=== PATIENT | male | born 1945 | race Caucasian/White ===

== ENCOUNTER 2016-10-12 22:29 | Inpatient (IN) | payer OTHER ==
[~2016-10-12] VITALS: Ht 180.3 cm; Wt 124.7 kg
--- NOTE | 2016-10-13 01:00 | RADIOLOGY REPORT ---
EXAMINATION: XR CHEST CLINICAL INFORMATION: Pneumonia. Central venous catheter COMPARISON: None TECHNIQUE: Single AP view of the chest was obtained. FINDINGS: Right-sided central venous catheter terminates near the cavoatrial junction. The lungs are well expanded. There is no focal consolidation, edema, or effusion. No pneumothorax. The cardiomediastinal silhouette is within normal limits. No acute osseous abnormality. IMPRESSION: No acute pulmonary findings.
[2016-10-13 01:12] LABS: ABSOLUTE EOSINOPHIL COUNT 0.1 /CUMM (0.0-0.7); ABSOLUTE MONOCYTE COUNT 0.6 /CUMM (0.10-0.60)
[2016-10-13 01:16] LABS: ABSOLUTE BASOPHIL COUNT 0.1 /CUMM (0.0-0.2); ABSOLUTE GRANULOCYTE CT 7.5 /CUMM (1.4-6.5); ABSOLUTE LYMPH COUNT 0.7 /CUMM (1.2-3.4); BASOPHIL % 1.6 % (0.0-2.0); GRANULOCYTE % 82.9 % (42.2-75.2); HEMATOCRIT 34.9 % (42-52); MEAN CORPUSCULAR HGB 28.3 PG (27.0-31.0); MEAN CORPUSCULAR HGB CONC 33.8 G/DL (33.0-37.0); MEAN CORPUSCULAR VOLUME 83.5 FL (80.0-94.0); MEAN PLATELET VOLUME 8.1 FL (7.4-10.4); PLATELET COUNT 230 /CUMM (130-400); RBC DISTRIBUTION WIDTH 15.3 % (11.5-14.5); RED BLOOD CELL CT 4.18 /CUMM (4.70-6.10)
--- NOTE | 2016-10-13 01:29 | ED GENERAL ADULT ---
History of Present Illness General Chief Complaint: General Adult Stated Complaint: SIB MD DUNCAN ?INFECTION Source: patient, Epic Exam Limitations: no limitations Vital Signs & Intake/Output Vital Signs & Intake/Output Vital Signs Date Time Temp Pulse Resp B/P B/P Pulse O2 O2 Flow FiO2 Mean Ox Delivery Rate 10/13 0221 98.7 82 16 170/102 98 Room Air 10/12 2234 99.4 86 20 194/101 94 Room Air ED Intake and Output 10/13 0000 10/12 1200 Intake Total Output Total Balance Patient 275 lb Weight Weight Reported by Patient Measurement Method Allergies Coded Allergies: No Known Allergies (10/12/16) Reconcile Medications Alendronate Sodium (Fosamax) 70 MG TABLET 1 TAB PO QW BONES (Reported) in the morning, at least 30 minutes before the first food, beverage, or medication of the day Every Sunday Dutasteride (Avodart) 0.5 MG CAPSULE 1 CAP PO DAILY PROSTATE (Reported) Lisinopril 10 MG TABLET 1 TAB PO DAILY HTN (Reported) Simvastatin (Simvastatin*) 10 MG TABLET 1 TAB PO QPM CHOLESTEROL (Reported) Triage Note: TRIAGE: PT SENT TO ER BY DR SIMS (ONCOLOGIST OUT OF [facility] IN [place]) FOR ADMISSION FOR +BLOOD CULTURES. CURRENTLY BEING TREATED FOR STAGE IV PROSTATE CANCER. HAD BLOOD CULTURES DRAWN THIS MORNING R/T PROSTATE CANCER DRUG REQUIRING IMMUNOTHERAPY. PT HAS OTHERWISE BEEN FEELING OK. HAS PREHOSPITAL PORT TO R CHEST WALL, HAS HAD X 3 WEEKS. Triage Nurses Notes Reviewed? yes Onset: Just prior to arrival Duration: minute(s):, constant, continues in ED Timing: recent history Severity: mild No Modifying Factors: none HPI: September 28 patient had central venous catheter placed for plasmapheresis and immunotherapy recurrent metastatic prostate cancer. Blood cultures were obtained because of suspicion for bacteremia. Culture from his central venous catheter and preliminary results of gram-positive cocci. He denies fever chills nausea vomiting diarrhea abdominal pain chest pain shortness of breath headache dysuria rash bleeding. Past History Travel History Traveled to [place] past 21 day No Medical History Any Pertinent Medical History? 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 No Review of Systems Review of Systems Constitutional: Reports: no symptoms. EENTM: Reports: no symptoms. Respiratory: Reports: no symptoms. Cardiovascular: Reports: no symptoms. GI: Reports: no symptoms. Genitourinary: Reports: no symptoms. Musculoskeletal: Reports: no symptoms. Skin: Reports: no symptoms. Neurological/Psychological: Reports: no symptoms. Hematologic/Endocrine: Reports: no symptoms. Immunologic/Allergic: Reports: no symptoms. All Other Systems: Reviewed and Negative Physical Exam Physical Exam General Appearance: well developed/nourished, alert, awake, anxious, comfortable Head: atraumatic, normal appearance Eyes: Bilateral: normal appearance, PERRL, EOMI. Ears, Nose, Throat: normal pharynx, normal ENT inspection, hearing grossly normal Neck: normal inspection, supple, full range of motion, no midline tenderness Respiratory: normal breath sounds, chest non-tender, no respiratory distress, quiet respiration, lungs clear Cardiovascular: regular rate/rhythm, normal peripheral pulses, norml femoral pulses equa Peripheral Pulses: 4+ carotid (R), 4+ carotid (L) Gastrointestinal: normal bowel sounds, soft, non-tender, no organomegaly Back: normal inspection, normal range of motion Extremities: normal inspection, normal capillary refill, normal range of motion, no edema Neurologic/Psych: no motor/sensory deficits, awake, alert, oriented x 3, normal gait, normal mood/affect, transmitter tester II-XII nml as tested Reflexes: 2+: bicep (R), bicep (L). Skin: intact, normal color, rash Lymphatic: no anterior cervical giovanni Core Measures ACS in differential dx? No CVA/TIA Diagnosis: No Severe Sepsis Present: No Septic Shock Present: No Progress Differential Diagnoses I considered the following diagnoses in my evaluation of the patient: Bacteremia Plan of Care: Orders Procedure Date/time Status CBC WITHOUT DIFFERENTIAL 10/14 599 Active BASIC ELECTROLYTES PLUS BUN&CR 10/14 599 Active Heart Healthy Diet 10/13 B Active BLOOD CULTURE 10/13 221 Active Intake & Output 10/14 219 Active Pathway - chart 10/13 205 Active LACTIC ACID 10/13 202 Active Pathway - chart 06/09 0200 Active House Staff 06/09 0200 Active EKG 10/13 0130 Active Patient Data 10/13 0054 Active TROPONIN LEVEL 10/13 0045 Complete CULTURE,URINE 10/13 0035 Active OXYGEN SETUP (GEN) 10/13 0002 Active Saline Lock 10/13 0002 Active Admit to inpatient 10/13 0002 Active Vital Signs 10/13 1 Active Activity/Ambulation 10/13 1 Active URINALYSIS 10/13 1 Complete Code Status 10/13 1 Active Lab Add-on Test 10/13 UNK Active VTE Mechanical Prophylaxis 10/13 UNK Active BLOOD CULTURE 10/12 2302 Active LACTIC ACID 10/12 2302 Complete COMPREHENSIVE METABOLIC PANEL 10/12 2302 Complete CBC WITHOUT DIFFERENTIAL 10/12 2302 Complete Current Medications Sig/Heath Start time Last Medication Dose Stop Time Status Admin Vancomycin HCl 1,000 MG ONCE ONE 10/13 2345 AC 10/13 Sodium Chloride 250 ML 10/14 004 0146 (Normal Saline 0.9%) Atorvastatin Calcium 10 MG 1700 10/13 1700 UNVr (Lipitor) Enoxaparin Sodium 40 MG DAILY 10/13 1000 UNVr (Lovenox) Finasteride 5 MG DAILY 10/13 1000 UNVr (Proscar) Lisinopril 10 MG DAILY 10/13 1000 UNVr (Prinivil) Acetaminophen 650 MG Q6P PRN 10/13 021 UNVr (Tylenol) Acetaminophen 1,000 MG Q6P PRN 10/13 021 UNVr (Ofirmev) Alendronate Sodium 70 MG .[QW] 10/13 214 UNVr (Fosamax) Hydromorphone HCl 0.5 MG Q6-PRN PRN 10/13 214 UNVr (Dilaudid) Laboratory Tests 10/13/16 0045: Anion Gap 9, Estimated GFR > 60, BUN/Creatinine Ratio 18.8, Glucose 107 H, Lactic Acid 0.8, Calcium 8.7, Total Bilirubin 0.8, AST 32, ALT 53, Alkaline Phosphatase 70, Troponin I 0.02, Total Protein 6.9, Albumin 3.7, Globulin 3.2, Albumin/Globulin Ratio 1.2, CBC w Diff NO MAN DIFF REQ, RBC 4.18 L, MCV 83.5, MCH 28.3, RDW 15.3 H, MPV 8.1, Gran % 82.9 H, Lymphocytes % 8.2 L, Monocytes % 6.3, Eosinophils % 1.0, Basophils % 1.6, Absolute Granulocytes 7.5 H, Absolute Lymphocytes 0.7 L, Absolute Monocytes 0.6, Absolute Eosinophils 0.1, Absolute Basophils 0.1, PUBS MCHC 33.8 10/13/16 0035: Urine Color YEL, Urine Clarity CLEAR, Urine pH 6.5, Ur Specific [place] 1.020, Urine Protein 30 H, Urine Ketones NEG, Urine Nitrite NEG, Urine Bilirubin NEG, Urine Urobilinogen 0.2, Ur Leukocyte Esterase NEG, Ur Microscopic SEDIMENT EXAMINED, Urine WBC RARE, Urine Hemoglobin TRACE-INTACT H, Urine Glucose NEG Microbiology 10/13 0222 BLOOD: Blood Culture - ORD 10/13 013 BLOOD: Blood Culture - RECD 10/13 34 URINE ROUT: Urine Culture - RECD 10/12 2302 BLOOD: Blood Culture - CAN Cancelled: Quantity not sufficient for both blood culture bottles. Initial ED EKG: none Departure Departure Disposition: STILL A PATIENT Condition: Stable Clinical Impression Primary Impression: Bacteremia due to Gram-positive bacteria Referrals: CARI BARRAZA MD (PCP/Family) Departure Forms: Customer Survey General Discharge Information Admission Note Spoke With: CARROLL ARGUETA,BRENDAN Documentation of Exam: Documentation of any treatments & extenuating circumstances including Concerns Regarding Discharge (functional status, medication knowledge or non-compliance, living conditions, etc.) that warrant an admission rather than observation: IV antibiotics follow cultures oncology evaluation central line placement Critical Care Note Critical Care Note Critical Care Time: non-applicable
[2016-10-13] MEDS ORDERED: LISINOPRIL10 M1 PO (02:01)
[2016-10-13] MEDS ORDERED: AVODART0.5 M1 PO (02:01)
[2016-10-13] MEDS ORDERED: SIMVASTATIN10 M1 PO (02:02)
[2016-10-13] MEDS ORDERED: FOSAMAX70 M1 PO (02:03)
--- NOTE | 2016-10-13 02:16 | History & Physical ---
RAJ ARGUETA,[facility] [place] 10/13/16 0208: General Information and HPI MD Statement: I have seen and personally examined GURPREET MACIAS and documented this H&P. The patient is a 71 year old M who presented with a patient stated chief complaint of positive blood cultures. Source of Information: patient, old records Exam Limitations: no limitations History of Present Illness: Mr. Macias is a 71 y/o morbidly obese M with PMHx of stage IV adenocarcinoma of the prostate s/p recent [facility] hemodialysis catheter placement in anticipation for immunotherapy, HTN and HLD who is sent in for further evaluation of positive blood cultures. Patient was diagnosed with prostate cancer in 2007 and since then has tried multiple therapy regimens including cyberknife, leuprolide, dutasteride, enzalutamide and most recently a combination of Zytiga and prednisone. Patient has been following up with oncologist Dr. Justyn Ponce at the [facility] in [place] and according to his clinic notes, he has recently been experiencing advancing disease with increasing PSA despite multiple treatment modalities that were tried. He has extensive lymph node involvement throughout his chest, abdomen and pelvis. There are no other metastases, however, including osteoblastic bone disease. Most recently, patient was switched over from Zytigo and prednisone to Provenge, which is an immunotherapy treatment for advanced prostate cancer. He is also on androgen deprivation therapy with leuprolide injections and dutasteride. Provenge is administered in 3 intravenous infusions about 2 weeks apart, with each infusion preceded 3 days earlier by leukapheresis procedure, which involves the collection of a blood sample from which leukocytes are subsequently . These cells are then exposed to antigens found in prostate cancers to provoke an immune response and subsequently infused back into the patient's bloodstream to target cancer cells. On 09/25, a hemodialysis catheter was placed at [facility] at [facility] in anticipation for Provenge therapy. 6 days prior to current presentation (10/06), patient underwent leukapheresis at [facility] and was supposed get the Provenge infusion three days later as part of the protocol. However, his oncologist was informed that his blood samples were contaminated, thus the scheduled infusion was canceled. Repeat blood cultures were drawn at [facility], with both anaerobic and aerobic cultures from the [facility] dialysis catheter growing gram positive cocci, while the peripheral cultures remained negative. Currently patient reports feeling well and denies any symptoms including fever, chills, cough, shortness of breath, nausea, vomiting, abdominal pain or urinary symptoms. He also denies swelling, redness or tenderness at the [facility] permacath site. Allergies/Medications Allergies: Coded Allergies: No Known Allergies (10/12/16) Home Med list Alendronate Sodium (Fosamax) 70 MG TABLET 1 TAB PO QW BONES (Reported) in the morning, at least 30 minutes before the first food, beverage, or medication of the day Every Sunday Dutasteride (Avodart) 0.5 MG CAPSULE 1 CAP PO DAILY PROSTATE (Reported) Lisinopril 10 MG TABLET 1 TAB PO DAILY HTN (Reported) Simvastatin (Simvastatin*) 10 MG TABLET 1 TAB PO QPM CHOLESTEROL (Reported) Past History Travel History [facility] past [facility] day No Medical History Neurological: NONE EENT: NONE Cardiovascular: hypertension, hyperlipidemia Respiratory: obstructive sleep apnea (on CPAP) Gastrointestinal: NONE Hepatic: NONE Renal: NONE Musculoskeletal: osteopenia Psychiatric: NONE Endocrine: obesity Blood Disorders: NONE Cancer(s): stage IV adenocarcinoma of the prostate PECAN PICKER/Reproductive: NONE Surgical History Surgical History: right hemodialysis catheter placement Past Family/Social History Family History Relations & Conditions if any FATHER, , Age 60+. No family history of: FH: diabetes mellitus; FH: HTN (hypertension) Psychosocial History Where do you live? Home Primary Language: Icelandic Smoking Status: Never Smoked ETOH Use: occasional use Illicit Drug Use: denies illicit drug use Functional Ability ADLs Independent: dressing, eating, toileting, bathing. Ambulation: independent IADLs Independent: shopping, housework, finances, food prep, telephone, transportation , medication admin. 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 Denies: chills, fever. EENTM: Reports: no symptoms. Cardiovascular: Reports: no symptoms. Respiratory: Reports: no symptoms. Denies: cough, short of breath. GI: Reports: no symptoms. Denies: nausea, vomiting. Genitourinary: Reports: no symptoms. Denies: dysuria, frequency. Musculoskeletal: Reports: no symptoms. Skin: Reports: no symptoms. Neurological/Psychological: Reports: no symptoms. Hematologic/Endocrine: Reports: no symptoms. Immunologic/Allergic: Reports: no symptoms. All Other Systems: Reviewed and Negative Exam & Diagnostic Data Last 24 Hrs of Vital Signs/I&O Vital Signs Date Time Temp Pulse Resp B/P B/P Pulse O2 O2 Flow FiO2 Mean Ox Delivery Rate 10/12 2234 99.4 86 20 194/101 94 Room Air Intake & Output 10/13 0800 10/13 0000 10/12 1600 Intake Total Output Total Balance Patient 124.738 kg Weight Weight Reported by Patient Measurement Method Physical Exam General Appearance Alert, Oriented X3, No Acute Distress, Obese Skin No Rashes, RIJ HD Catheter Site without Erythema, Swelling or Tenderness HEENT Atraumatic, Mucous Membr. moist/pink Neck Supple Cardiovascular Regular Rate, Normal S1, Normal S2, No Murmurs, Gallops, Rubs Lungs Clear to Auscultation Abdomen Soft, No Tenderness, Positive Bowel Sounds Extremities 1+ Pitting Edema on Bilateral Lower Extremities Last 24 Hrs of Labs/Gabe: Laboratory Tests 10/13/16 0045: Anion Gap 9, Estimated GFR > 60, BUN/Creatinine Ratio 18.8, Glucose 107 H, Lactic Acid 0.8, Calcium 8.7, Total Bilirubin 0.8, AST 32, ALT 53, Alkaline Phosphatase 70, Troponin I 0.02, Total Protein 6.9, Albumin 3.7, Globulin 3.2, Albumin/Globulin Ratio 1.2, CBC w Diff NO MAN DIFF REQ, RBC 4.18 L, MCV 83.5, MCH 28.3, RDW 15.3 H, MPV 8.1, Gran % 82.9 H, Lymphocytes % 8.2 L, Monocytes % 6.3, Eosinophils % 1.0, Basophils % 1.6, Absolute Granulocytes 7.5 H, Absolute Lymphocytes 0.7 L, Absolute Monocytes 0.6, Absolute Eosinophils 0.1, Absolute Basophils 0.1, PUBS MCHC 33.8 10/13/16 0035: Urine Color YEL, Urine Clarity CLEAR, Urine pH 6.5, Ur Specific Garber 1.020, Urine Protein 30 H, Urine Ketones NEG, Urine Nitrite NEG, Urine Bilirubin NEG, Urine Urobilinogen 0.2, Ur Leukocyte Esterase NEG, Ur Microscopic SEDIMENT EXAMINED, Urine WBC RARE, Urine Hemoglobin TRACE-INTACT H, Urine Glucose NEG Diagnostic Data EKG Results Normal sinus rhythm HR 74 Ventricular trigeminy LVH QTc 444 CXR Results No acute pulmonary findings. Assessment/Plan Assessment: Mr. Macias is a 71 y/o morbidly obese M with PMHx of stage IV adenocarcinoma of the prostate s/p recent RIJ hemodialysis catheter placement in anticipation for immunotherapy, HTN and HLD who is sent in for further evaluation of positive blood cultures. #Positive blood cultures: Presents with blood cultures, both aerobic and anaerobic, from the RIJ hemodialysis catheter growing gram positive cocci in clusters. This likely represents colonization as peripheral blood cultures were negative and patient has no fever, leukocytosis or other signs of infection including inflammation at the catheter site. However catheter site infection should also be considered. No other obvious source of infection. Patient is asymptomatic. CXR is clear and UA is unremarkable. * Admit to General Medicine. * Re-check peripheral blood cultures x2 and blood cultures from the RIJ catheter x2. * ID consult to be placed in the AM. Appreciate their recs. * Continue vancomycin 1 g IV daily started in the ED. * Hold off on ECHO to evaluate for infectious endocarditis pending above. #Stage IV adenocarcinoma of the prostate: Diagnosed in 2007. Currently with extensive lymph node involvement but no other mets including bone mets. Was recently switched from Zytigo and prednisone to immunotherapy with Provenge, which involves 3 infusions about 2 weeks apart, each preceded by leukapheresis. Also on androgen deprivation therapy with dutasteride 0.5 mg PO daily and leuprolide injections. Follows with Dr. Justyn Ponce at [facility]. * Oncology consult placed. Appreciate their recs. * Start finasteride 5 mg PO daily in place of dutasteride as the latter is not on formulary. #Ventricular ectopy: EKG on admission with ventricular trigeminy. Troponin negative. K 4 and Mg 1.9. * Replete to K >4 and Mg >2. 400 mg of oral magnesium administered. * Re-check EKG and troponin in the AM. #HTN: Hypertensive on initial presentation with BP of 194/101. Likely secondary to skipping his dose of lisinopril as well as anxiety. * Continue jxfyq-dk-ddmowfwph lisinopril 10 mg PO daily. Administer first dose as soon as possible. #Osteopenia: * Continue patlx-zy-pcktmvezz alendronate 70 mg PO once per week. #HLD: Takes simvastatin 10 mg PO daily. * Atorvastatin 10 mg PO daily. #TROY: * Continue oyugi-mt-ixiciicou nocturnal CPAP. Diet: Heart Healthy DVT PPx: Lovenox and ALPs Pain: Dilaudid 0.5 mg IV Q6H PRN for severe pain (scale 7-10) Tylenol 1 g IV Q6H PRN for moderate pain (scale 4-6) Tylenol 650 mg PO Q6H PRN for mild pain (scale 1-3) CODE: FULL As Ranked By This Provider Problem List: 1. Positive blood cultures 2. Adenocarcinoma of prostate, stage 4 3. HTN (hypertension) 4. HLD (hyperlipidemia) 5. TROY on CPAP 6. Osteopenia Core Measures/Miscellaneous Acute Coronary Syndrome ACS Diagnosis: No Cerebrovascular Accident CVA/TIA Diagnosis: No Congestive Heart Failure CHF Diagnosis: No VTE (View Protocol) VTE Risk Factors: Acute medical illness, Age > 40, Malignancy Myelo Disorder, Obesity [facility] prophylaxis d/t: No contraindications No VTE Pharm Prophylaxis d/t: No contraindications VTE Diagnosis: No VTE Type: NONE VTE Confirmed by (Test): NONE Sepsis (View Protocol) Severe Sepsis Present: No Septic Shock Septic Shock Present: No Miscellaneous Documentation Attending Case D[facility]ed With[facility] Primary Care Physician: CARI BARRAZA MD Patient sees these Specialists Oncologist Justyn Ponce MD Naturopathic physician Level of Patient Care: General Medicine BRIGTETE LITTLE 10/13/16 0233: Resident Review Statement Resident Statement: examined this patient, discussed with internal grinding machine operator, agreed with internal grinding machine operator Other Findings: This is a 71 years old gentleman with past medical history of hyperlipidemia hypertension obstructive sleep apnea who uses CPAP at night, prostate cancer stage IV currently about to start trying immunotherapy after multiple failure to previous treatment options. Prostate cancer was diagnosed since 2007. The patient was sent in by his oncologist Dr. Mcfarlane after growing gram-positive cocci in clusters in blood. Patient had port catheter placed on September 25 so that he can have leukapheresis in which case the collected white blood cell count be processed so that they facilitate packing the cancer cells using another medication called Provenge provided by a provider from [place]. Patient had leukapheresis last Sunday and on Sunday he is oncologist received a call from the Provenge providers that the white blood cell provided were contaminated with bacteria. He had a repeat blood culture and subsequently grew gram-positive cocci in clusters from the sample withdrawn from the port catheter but not from the peripheral site. Patient denies any fever or chills, loss of appetite, nausea, vomiting, increased urinary frequency, pain during micturition, abdominal pain, cough shortness of breath or extraordinary tenderness from the catheter site prior or during the identification of bacteria in the blood. Vital signs on arrival temperature 99.4, heart rate 86 respiration 20 blood pressure 194/101, saturating 94% on room were Physical examination: Seated comfortably on the bed, cooperative, oriented to time place and person very present HEENT: Short obese neck, nondistended vessels, no palpable nodes, the port catheter site has no erythema or discharge and no tenderness. Chest: Clear lungs bilaterally Heart: S1-S2 normal regular no murmurs Extremities: Mild pitting edema +1 bilaterally no skin break Labs: Normal white count 9800, mild anemia 11.8/34.9, negative lactic acid 0.8, negative UA Assessment and plan 71 years old gentleman with stage IV prostate cancer diagnosed since 2007 with multiple medication failure currently about to start immunotherapy that involves the use of leukapheresis. Sample collected from leukapheresis found to grow bacteria and repeated culture growing gram-positive cocci in clusters. Patient does not appear to be septic denies any constitutional symptoms and is generally frustrated that he cannot get his rescue therapy as planned. So far we cannot establish the source of infection offered to do SHARON to see if his prostate tenderness but the patient declined citing no symptoms. Problem list Bacteremia with gram-positive cocci in clusters Hypertension Stage IV prostate cancer Hyperlipidemia Obstructive sleep apnea Plan Admit to general medicine floor Patient started on vancomycin Panculture urine and blood Start home medication lisinopril for hypertension, simvastatin for hyperlipidemia Avodart for prostate Follow-up culture results and adjust antibiotic accordingly With subsequent growth of bacteria patient will benefit from echocardiogram to rule out vegetation Oncology consult a.m. ID consult a.m. Pain pathway Patient is full code CARROLL ARGUETA, [facility] 10/13/16 0550: Attending MD Review Statement Attending Statement Attending MD Statement: examined this patient, discuss w/resident/PA/ROBOTIC TOY INVENTOR, agreed w/resident/PA/ROBOTIC TOY INVENTOR Attending Assessment/Plan: 71 yo morbidly obese M has a h/o HTN, TROY on CPAP, castrate resistant, biochemically only recurrent prostate cancer with a plan to initiate immunotherapy (Provenge), underwent right IJ permacath placement on September 25, subsequently underwent pheresis on October 06. His Oncologist Dr. Ponce received a call from Proven provider at [place] that his WBC were contaminated with bacteria. Hence, Dr. Ponce advised patient o get blood cultures drawn this morning (October 12). Preliminary results of this blood culture drawn at [facility] were reported growing gram positive cocci in clusters in both aerobic and anaerobic bottles drawn from the right IJ cath, but cultures from peripheral line were negative. Dr. Ponce advised patient to get admitted, hence patient came to [place]. Patient is asymptomatic. Patient was diagnosed with prostate cancer in 2007, treated with cyberknife, then Xtandi, and then most recently zytiga/prednisone, but his PSA levels kept creeping up. He is currently on Lupron and avodart. Vitals stable except for hypertension. Examination unremarkable, right IJ site C /D/I. Labs: unremarkable, CXR neg. EKG: SR with ventricular trigeminy. 1. Gram positive bacteremia, likely line sepsis. GM admit, draw two sets of blood culture from the right IJ catheter and 2 sets from peripheral line. Initiate IV vancomycin. Obtain ID consult and Oncology consult. ?Eventual need for removal of the IJ catheter. Continue patient's home medications lisinopril, simvastatin, avodart. Replete electrolytes to keep K > 4.0, Mag > 2.0. Repeat EKG and troponin in AM. Patient is understanding, but frustrated with the whole situation. He keeps saying, "I cannot complain", but he is hoping that he could get this immunotherapy and live for a few more months. He does not have any family, but has friends. He is concerned about his 'dog' who is currently being cared for by his neighbour. DVT ppx. Full code.
[2016-10-13 03:00] VITALS: BP 168/90
--- NOTE | 2016-10-13 05:51 | Admission Certification ---
Admission Certification Certification Statement - As attending physician, I certify that at the time of - admission, based on clinical presentation, severity of - symptoms, need for further diagnostic testing and - therapeutic interventions, and risk of adverse outcomes - without in-hospital treatment, in my clinical assessment, - this patient requires an acute hospital stay for a minimum - of two nights or longer. I have also considered psychsocial - factors such as support system, advanced age, financial - issues, cognitive issues, and failed out-patient treatments, - past re-admission history, safety of patient, and lack of - compliance as applicable. Specific rationale supporting this admission is: Gram positive cocci bacteremia, likely line sepsis.
[2016-10-13 07:48] VITALS: BP 160/84
--- NOTE | 2016-10-13 08:51 | Cons- Oncology ---
General Information and HPI Consulting Request Date of Consult: 10/13/16 Requested By: CARROLL ARGUETA,BRENDAN Reason for Consult: metastatic prostate cancer, bacteremia Source of Information: patient, old records Exam Limitations: no limitations History of Present Illness: Mr. Macias is a 71-year-old male with metastatic prostate cancer status post Xtandi, Zytiga/Prednisone, and currently planning for Provenge therapy who presented to the ED with positive blood culture. His oncologist is Dr. Justyn Duncan in [place]. He is currently undergoing evaluation and preparation for Provenge therapy. Right IJ pheresis line was placed at [facility] on 09/25. His first sample of Provenge was contaminated and he was unable to get it. Due to concern on whether the line or sample was contaminated, he had blood cultures done on 10/12/[address] Duncan's office. Culture came back positive with GPC and Mr. Macias was sent to the ED for evaluation. Mr. Macias has been afebrile and feeling generally well. He is a little fatigue. He has no pain. He is eating and drinking well. He has no pain or redness at the line site. In the ED, he was noted to be afebrile and asymptomatic. Blood work demonstrated normocytic anemia. Repeat blood cultures were drawn. He was started on vancomycin. 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 He was diagnosed initially in 2007 with PSA of 12.3 and [place] 4+3=7. He was treated with radiation therapy at the time. He had biochemical recurrence without metastatic disease in 2008 and was started on leuprolide in 08/2009. He was started on Avodart with increasing PSA in 2012. Xtandi was started in 2012 when PSA increased to 15.5. PSA demonstrate significant improvement with negative metastatic disease workup. Salvage cryotherapy was deferred. PSA increased again after 2 years of Xtandi. He was switched to Zytiga/prednisone with PSA progression. His PSA continue to increased with evidence of retroperitoneal adenopathy. He was tentatively planned to start Provenge as above. He continues to be on leuprolide. Allergies/Medications Allergies: Coded Allergies: No Known Allergies (10/12/16) Home Med List: Alendronate Sodium (Fosamax) 70 MG TABLET 1 TAB PO QW BONES (Reported) in the morning, at least 30 minutes before the first food, beverage, or medication of the day Every Sunday Dutasteride (Avodart) 0.5 MG CAPSULE 1 CAP PO DAILY PROSTATE (Reported) Lisinopril 10 MG TABLET 1 TAB PO DAILY HTN (Reported) Simvastatin (Simvastatin*) 10 MG TABLET 1 TAB PO QPM CHOLESTEROL (Reported) Current Medications: Current Medications Sig/Heath Start time Last Medication Dose Route Stop Time Status Admin Acetaminophen 650 MG Q6P PRN 10/13 0215 AC PO Acetaminophen 1,000 MG Q6P PRN 10/13 0215 AC IV Alendronate Sodium 70 MG Th@0700 10/19 0700 AC PO Alendronate Sodium 70 MG ONCE A WEEK 10/13 1000 DC PO Atorvastatin Calcium 10 MG 1700 10/13 1700 AC PO Enoxaparin Sodium 40 MG DAILY 10/13 1000 AC SC Finasteride 5 MG DAILY 10/13 1000 AC PO Hydromorphone HCl 0.5 MG Q6-PRN PRN 10/13 0215 AC IV Lisinopril 10 MG DAILY 10/13 1000 CAN PO Lisinopril 10 MG DAILY 10/13 0230 AC 10/13 PO 0239 Magnesium Oxide 400 MG ONE ONE 10/13 0630 DC PO 10/13 0631 Ramelteon 8 MG ONCE ONE 10/13 0245 DC 10/13 PO 10/13 0246 0239 Vancomycin HCl 1,000 MG ONCE ONE 10/13 2345 AC 10/13 Sodium Chloride 250 ML IV 10/14 0044 0146 Vancomycin HCl 1,000 MG Q12H 10/13 1400 AC Sodium Chloride 250 ML IV Vancomycin HCl 1,000 MG Q12 10/13 1000 DC Sodium Chloride 250 ML IV Review of Systems Review of Systems Constitutional: Reports: no symptoms. Denies: chills, diaphoresis, fever, malaise, weakness. Cardiovascular: Denies: chest pain. Respiratory: Denies: short of breath. GI: Denies: abdominal pain, diarrhea. Genitourinary: Denies: dysuria. Musculoskeletal: Denies: back pain, joint pain. Skin: Denies: rash. Neurological/Psychological: Denies: anxiety. Hematologic/Endocrine: Denies: bruising, bleeding. Immunologic/Allergic: Denies: lymphadenopathy. All Other Systems: Reviewed and Negative Past History Travel History Traveled to [place] past 21 day No Medical History Blood Transfusion Hx: No Neurological: NONE EENT: NONE Cardiovascular: hypertension, hyperlipidemia Respiratory: obstructive sleep apnea (on CPAP) Gastrointestinal: NONE Hepatic: NONE Renal: NONE Musculoskeletal: osteopenia Psychiatric: anxiety Endocrine: obesity Blood Disorders: NONE Cancer(s): stage IV adenocarcinoma of the prostate VIDEO LIBRARY ASSISTANT/Reproductive: NONE Surgical History Surgical History: right hemodialysis catheter placement Family History Relations & Conditions If Any: FATHER, , Age 60+. Psychosocial History Where Do You Live? Home Services at Home: None Primary Language: Turkish Smoking Status: Never Smoked ETOH Use: occasional use Illicit Drug Use: denies illicit drug use Functional Ability ADLs Independent: dressing, eating, toileting, bathing. Ambulation: independent IADLs Independent: shopping, housework, finances, food prep, telephone, transportation , medication admin. Employment History Employment: Employed Profession/Employer: [employer] Exam & Diagnostic Data Vital Signs and I&O Vital Signs Date Time Temp Pulse Resp B/P B/P Pulse O2 O2 Flow FiO2 Mean Ox Delivery Rate 10/14 747 98.3 70 22 160/84 99 Room Air 10/13 0307 96 Room Air 10/13 0300 98.4 67 20 168/90 95 Room Air 10/13 0239 178/102 10/13 0221 98.7 82 16 170/102 98 Room Air 10/12 2234 99.4 86 20 194/101 94 Room Air Intake & Output 10/13 1600 10/13 0800 10/13 0000 Intake Total 0 Output Total Balance 0 Intake, Oral 0 Patient 124.738 kg 124.738 kg Weight Weight Reported by Patient Reported by Patient Measurement Method Physical Exam General Appearance: well developed/nourished, no apparent distress, alert, awake , comfortable Head: atraumatic, normal appearance Eyes: Bilateral: PERRL. Ears, Nose, Throat: normal pharynx Neck: normal inspection Respiratory: normal breath sounds, chest non-tender, no respiratory distress Cardiovascular: regular rate/rhythm Gastrointestinal: normal bowel sounds, soft, non-tender, obese Extremities: normal inspection Neurologic/Psych: awake, alert, oriented x 3 Cranial Nerves: normal hearing, normal speech Skin: intact, warm/dry Other Physical Findings: Right IJ pheresis line in place without tenderness or erythema Last 48 Hours of Lab Results: Laboratory Tests 10/13 0710 0045 Chemistry Sodium (137 - 145 mmol/L) 136 L Potassium (3.5 - 5.1 mmol/L) 4.0 Chloride (98 - 107 mmol/L) 103 Carbon Dioxide (22 - 30 mmol/L) 23 Anion Gap (5 - 16) 9 BUN (9 - 20 mg/dL) 15 Creatinine (0.7 - 1.2 mg/dL) 0.8 Estimated GFR (>60 ml/min) > 60 BUN/Creatinine Ratio (7 - 25 %) 18.8 Glucose (65 - 99 mg/dL) 107 H Lactic Acid (0.7 - 2.1 mmol/L) Pending 0.8 Calcium (8.4 - 10.2 mg/dL) 8.7 Magnesium (1.6 - 2.3 mg/dL) 1.9 Total Bilirubin (0.2 - 1.3 mg/dL) 0.8 AST (17 - 59 U/L) 32 ALT (21 - 72 U/L) 53 Alkaline Phosphatase (< 127 U/L) 70 Troponin I (<0.11 ng/ml) Pending 0.02 Total Protein (6.3 - 8.2 g/dL) 6.9 Albumin (3.5 - 5.0 g/dL) 3.7 Globulin (1.9 - 4.2 gm/dL) 3.2 Albumin/Globulin Ratio (1.1 - 2.2 %) 1.2 Hematology CBC w Diff NO MAN DIFF REQ WBC (4.8 - 10.8 /CUMM) 9.0 RBC (4.70 - 6.10 /CUMM) 4.18 L Hgb (14.0 - 18.0 G/DL) 11.8 L Hct (42 - 52 %) 34.9 L MCV (80.0 - 94.0 FL) 83.5 MCH (27.0 - 31.0 PG) 28.3 RDW (11.5 - 14.5 %) 15.3 H Plt Count (130 - 400 /CUMM) 230 MPV (7.4 - 10.4 FL) 8.1 Gran % (42.2 - 75.2 %) 82.9 H Lymphocytes % (20.5 - 51.1 %) 8.2 L Monocytes % (1.7 - 9.3 %) 6.3 Eosinophils % (0 - 5 %) 1.0 Basophils % (0.0 - 2.0 %) 1.6 Absolute Granulocytes (1.4 - 6.5 /CUMM) 7.5 H Absolute Lymphocytes (1.2 - 3.4 /CUMM) 0.7 L Absolute Monocytes (0.10 - 0.60 /CUMM) 0.6 Absolute Eosinophils (0.0 - 0.7 /CUMM) 0.1 Absolute Basophils (0.0 - 0.2 /CUMM) 0.1 PUBS MCHC (33.0 - 37.0 G/DL) 33.8 10/13 0035 Urines Urine Color (YEL,AMB,STR) YEL Urine Clarity (CLEAR) CLEAR Urine pH (5.0 - 8.0) 6.5 Ur Specific [place] (1.001 - 1.035) 1.020 Urine Protein (NEG,<30 MG/DL) 30 H Urine Ketones (NEG) NEG Urine Nitrite (NEG) NEG Urine Bilirubin (NEG) NEG Urine Urobilinogen (0.1 - 1.0 EU/dl) 0.2 Ur Leukocyte Esterase (NEG) NEG Ur Microscopic SEDIMENT EXAMINED Urine WBC (0 - 2 /HPF) RARE Urine Hemoglobin (NEG) TRACE-INTACT H Urine Glucose (N MG/DL) NEG Imaging/Other Studies: CXR 10/13/2016: No acute pulmonary findings. Assessment/Plan Assessment: Mr. Macias is a 71-year-old metastatic prostate cancer who presented to the hospital with positive blood culture for GPC in 2 of 4 bottles. He is currently asymptomatic. There is concern that it may be secondary to contaminated right IJ line. Repeated cultures in the ED is pending but no growth at the moment. It is unclear if this was down peripherally or from line. He is on vancomycin. Blood work is unremarkable except for mild anemia. ID is being consulted. Removal of line will likely depending on culture. Recommendations: 1. Follow up blood cultures 2. Follow final cultures from [facility] 3. Ensure line cultures were drawn 4. Continue vancomycin for now 5. Follow up ID recommendations 6. Follow up with Dr. Justyn Duncan after discharge Problem List: 1. Bacteremia due to Gram-positive bacteria 2. Adenocarcinoma of prostate, stage 4 Other Findings/Comments: Please call [phone] with any questions or concerns. Copies To: JUSTYN DUNCAN MD Consult Acknowledgment - Thank you for your consult request.
--- NOTE | 2016-10-13 09:02 | PN- Student ---
Subjective Subjective: This morning Mr. Macias feels well and complains of no symptoms or signs of infection. When asked if he has any complaints he said no and stated that he was "as strong as an ox". He denies any fever or chills, headache, abdominal pain, N /V/D, chest pain, palpitations, dysuria, or respiratory issues. Objective Objective: Vital Signs Date Time Temp Pulse Resp B/P B/P Pulse O2 O2 Flow FiO2 Mean Ox Delivery Rate 10/13 0748 98.3 70 22 160/84 99 Room Air 10/13 0307 96 Room Air 10/13 0300 98.4 67 20 168/90 95 Room Air 10/13 0239 178/102 10/13 0221 98.7 82 16 170/102 98 Room Air 10/12 2234 99.4 86 20 194/101 94 Room Air Intake & Output 10/13 1600 10/13 0800 10/13 0000 Intake Total 0 Output Total Balance 0 Intake, Oral 0 Patient 275 lb 275 lb Weight Weight Reported by Patient Reported by Patient Measurement Method EKG- EKG on admission with ventricular trigeminy PE: general- healthy well nourished, AAO x 3, NAD HEENT- atraumatic, PERRLA, membranes moist and pink Neck- supple, no JVD, no lymphadenopathy or thyromegaly, trachea is midline CV- S1 and S2 appreciated, regular rate and rhythm, no murmurs or rubs heard, right internal jugular hemodialysis catheter noted with no erythema or swelling at site Respiratory- chest rise equal bilaterally, vesicular sounds heard throughout all lung lo, normal air movement noted abdomen- slight distenstion, bowel sounds present and normal, soft and non- tender to palpation Extremity- no edema, strength 5/5 x all extremities, sensation grossly intact Skin- warm and well perfused, no lesions or sores noted Results Results: Laboratory Tests 10/13/16 0830: Lactic Acid 0.8 10/13/16 0710: Troponin I 0.02 10/13/16 0045: Anion Gap 9, Estimated GFR > 60, BUN/Creatinine Ratio 18.8, Glucose 107 H, Lactic Acid 0.8, Calcium 8.7, Magnesium 1.9, Total Bilirubin 0.8, AST 32, ALT 53 , Alkaline Phosphatase 70, Troponin I 0.02, Total Protein 6.9, Albumin 3.7, Globulin 3.2, Albumin/Globulin Ratio 1.2, CBC w Diff NO MAN DIFF REQ, RBC 4.18 L, MCV 83.5, MCH 28.3, RDW 15.3 H, MPV 8.1, Gran % 82.9 H, Lymphocytes % 8.2 L, Monocytes % 6.3, Eosinophils % 1.0, Basophils % 1.6, Absolute Granulocytes 7.5 H, Absolute Lymphocytes 0.7 L, Absolute Monocytes 0.6, Absolute Eosinophils 0.1, Absolute Basophils 0.1, PUBS MCHC 33.8 10/13/16 0035: Urine Color YEL, Urine Clarity CLEAR, Urine pH 6.5, Ur Specific [place] 1.020, Urine Protein 30 H, Urine Ketones NEG, Urine Nitrite NEG, Urine Bilirubin NEG, Urine Urobilinogen 0.2, Ur Leukocyte Esterase NEG, Ur Microscopic SEDIMENT EXAMINED, Urine WBC RARE, Urine Hemoglobin TRACE-INTACT H, Urine Glucose NEG Microbiology 10/13 0210 BLOOD: Blood Culture - RECD 10/13 0135 BLOOD: Blood Culture - RES GRAM POSITIVE COCCI 10/13 003 URINE ROUT: Urine Culture - RECD 10/12 2303 BLOOD: Blood Culture - CAN Cancelled: Quantity not sufficient for both blood culture bottles. Assessment/Plan Assessment: Mr. Macias is a 71 yo obese male with a PMH of stage 4 adenocarcinoma of the prostate (s/p RIJ hemodialysis catheter placement on september 25, 2016), HTN, Hyperlipidemia, TROY (on CPAP), and osteopenia. He was diagnosed in 2007 with prostate cancer and has since had numerous therapies to treat. Recently his disease has advanced as evidenced by increasing PSA and extensive lymph node involvement without any metastasis. He was sent to us by his oncologist Dr. Mcfarlane ([facility]) due to blood cultures positive for gram + cocci in clusters found while he was awaiting infusion of his Provenge immunotherapy. On admission he was completely asymtomatic. Vitals were temp- 99.4, HR- 86, RR- 20, BP- 194/101 (there was concern of missed antihypertensive dose), SpO2-94% on room air. Labs showed WBC- 9.0, H/H- 11.8/34.9, MCV- 83.5, Bun- 15, Pulmonary Function Technician- 0.8, lactic acid- 0.8, Mg- 1.9. PE only positive for 1+ bilateral LE edema which today has resolved. UA and SHARON were negative and troponins were 0.02 for two readings. In ED he was started on vancomycin 1 gm Q12hr, urine and blood cultures were sent, ID and oncology consults were requested, he was started on finasteride 5mg, Mag 400mg once, lovenox for DVT, atorvastatin and fosomax were also started. Today he seems well. PE was unremarkable. we are still awaiting culture results and operative report from [facility]. His vitals this morning are temp- 98.3, Hr- 70, RR- 22, BP- 160/84, SpO2-99 on room air. Current Medications Sig/Heath Start time Last Medication Dose Route Stop Time Status Admin Acetaminophen 650 MG Q6P PRN 10/13 0215 AC PO Acetaminophen 1,000 MG Q6P PRN 10/13 0215 AC IV Alendronate Sodium 70 MG Th@0700 10/19 0700 AC PO Alendronate Sodium 70 MG ONCE A WEEK 10/13 1000 DC PO Atorvastatin Calcium 10 MG 1700 10/13 1700 AC PO Enoxaparin Sodium 40 MG DAILY 10/13 1000 DC 10/13 SC 0935 Finasteride 5 MG DAILY 10/13 1000 AC 10/13 PO 0935 Hydromorphone HCl 0.5 MG Q6-PRN PRN 10/13 0215 AC IV Lisinopril 10 MG DAILY 10/13 1000 CAN PO Lisinopril 10 MG DAILY 10/13 0230 AC 10/13 PO 0935 Magnesium Oxide 400 MG ONE ONE 10/13 0630 DC 10/13 PO 10/13 0631 0935 Ramelteon 8 MG ONCE ONE 10/13 0245 DC / PO 10/13 0246 0239 Vancomycin HCl 1,000 MG ONCE ONE 10/13 2345 AC 10/13 Sodium Chloride 250 ML IV 10/14 0044 0146 Vancomycin HCl 1,000 MG Q12H 10/13 1400 AC Sodium Chloride 250 ML IV Vancomycin HCl 1,000 MG Q12 10/13 1000 DC Sodium Chloride 250 ML IV Plan: Patient has been seen by ID and oncology. We have requested operative report from [facility]. Patient is currently stable. We will await operative report and cultures and follow recommendations from specialists on this case. Removal of the jay catheter has been recommended so we will await the operative report as per IR. ID recommendations: -Obtain the operative note for the placement of his Jay catheter from [facility] (requested by IR) -Would pursue removal of the Jay catheter today and culture the tip -Follow-up recent blood cultures -Discontinue Vancomycin and follow off antibiotics pending above Oncology recommendations: -Follow up blood cultures -Follow final cultures from [facility] -Ensure line cultures were drawn -Continue vancomycin for now -Follow up ID recommendations -Follow up with Dr. Justyn Ponce after discharge Problem List: 1. blood cultures positive for gram positive cocci in clusters: -awaiting blood culture results -following ID recommendations -discontinue vancomycin as per ID -obtaining operative report from [facility] -follow daily labs for signs of infection and sepsis 2. Stage 4 adenocarcinoma of prostate: -following recommendations from oncology -following blood cultures. IR onboard for removal of jay cath. -holding vancomycin as per ID 3. ventricular ectopy: -magnesium and potassium repleted in ED -continue to follow daily labs to assess if further repletion is needed 4. HTN: -continue lisinopril 10mg/day PO -monitor BP 5. Hyperlipidemia: -continue atorvastatin 10mg/day PO 6. Osteopenia: -continue fosamax 70mg Qthurs @ 0700 PO 7. Obstructive sleep apnea: -continue nocturnal CPAP Diet- hearth healthy DVT prophylaxis- lovenox SQ and alps Code Status- Full
--- NOTE | 2016-10-13 12:43 | PN- Att Addend ---
Attending Addendum Attending Brief Note Patient seen and examined, he himself denies any complaints. He did mention that he was feeling depressed. He denies any aches or pains, he denies any other complaints. Vital Signs Date Time Temp Pulse Resp B/P B/P Pulse O2 O2 Flow FiO2 Mean Ox Delivery Rate 10/13 934 72 162/86 10/13 0748 98.3 70 22 160/84 99 Room Air 10/13 0307 96 Room Air 10/13 0300 98.4 67 20 168/90 95 Room Air 10/13 0239 178/102 10/13 0221 98.7 82 16 170/102 98 Room Air 10/12 2234 99.4 86 20 194/101 94 Room Air on exam; aox3, nad. cv; s1,s2, rrr. permcath on right chest wall. resp; clear abd; soft, nt, bs+ ext: + edema. Laboratory Tests 10/1330 0710 0045 Chemistry Sodium (137 - 145 mmol/L) 136 L Potassium (3.5 - 5.1 mmol/L) 4.0 Chloride (98 - 107 mmol/L) 103 Carbon Dioxide (22 - 30 mmol/L) 23 Anion Gap (5 - 16) 9 BUN (9 - 20 mg/dL) 15 Creatinine (0.7 - 1.2 mg/dL) 0.8 Estimated GFR (>60 ml/min) > 60 BUN/Creatinine Ratio (7 - 25 %) 18.8 Glucose (65 - 99 mg/dL) 107 H Lactic Acid (0.7 - 2.1 mmol/L) 0.8 0.8 Calcium (8.4 - 10.2 mg/dL) 8.7 Magnesium (1.6 - 2.3 mg/dL) 1.9 Total Bilirubin (0.2 - 1.3 mg/dL) 0.8 AST (17 - 59 U/L) 32 ALT (21 - 72 U/L) 53 Alkaline Phosphatase (< 127 U/L) 70 Troponin I (<0.11 ng/ml) 0.02 0.02 Total Protein (6.3 - 8.2 g/dL) 6.9 Albumin (3.5 - 5.0 g/dL) 3.7 Globulin (1.9 - 4.2 gm/dL) 3.2 Albumin/Globulin Ratio (1.1 - 2.2 %) 1.2 Hematology CBC w Diff NO MAN DIFF REQ WBC (4.8 - 10.8 /CUMM) 9.0 RBC (4.70 - 6.10 /CUMM) 4.18 L Hgb (14.0 - 18.0 G/DL) 11.8 L Hct (42 - 52 %) 34.9 L MCV (80.0 - 94.0 FL) 83.5 MCH (27.0 - 31.0 PG) 28.3 RDW (11.5 - 14.5 %) 15.3 H Plt Count (130 - 400 /CUMM) 230 MPV (7.4 - 10.4 FL) 8.1 Gran % (42.2 - 75.2 %) 82.9 H Lymphocytes % (20.5 - 51.1 %) 8.2 L Monocytes % (1.7 - 9.3 %) 6.3 Eosinophils % (0 - 5 %) 1.0 Basophils % (0.0 - 2.0 %) 1.6 Absolute Granulocytes (1.4 - 6.5 /CUMM) 7.5 H Absolute Lymphocytes (1.2 - 3.4 /CUMM) 0.7 L Absolute Monocytes (0.10 - 0.60 /CUMM) 0.6 Absolute Eosinophils (0.0 - 0.7 /CUMM) 0.1 Absolute Basophils (0.0 - 0.2 /CUMM) 0.1 PUBS MCHC (33.0 - 37.0 G/DL) 33.8 10/13 0035 Urines Urine Color (YEL,AMB,STR) YEL Urine Clarity (CLEAR) CLEAR Urine pH (5.0 - 8.0) 6.5 Ur Specific [place] (1.001 - 1.035) 1.020 Urine Protein (NEG,<30 MG/DL) 30 H Urine Ketones (NEG) NEG Urine Nitrite (NEG) NEG Urine Bilirubin (NEG) NEG Urine Urobilinogen (0.1 - 1.0 EU/dl) 0.2 Ur Leukocyte Esterase (NEG) NEG Ur Microscopic SEDIMENT EXAMINED Urine WBC (0 - 2 /HPF) RARE Urine Hemoglobin (NEG) TRACE-INTACT H Urine Glucose (N MG/DL) NEG A/P; 71 y/o M with pmh sig for HTN, TROY on CPAP, castrate resistant, biochemically only recurrent prostate cancer with a plan to initiate immunotherapy (Provenge), underwent right IJ permacath placement, was sent in as per his doctors his blood was not sterile. As discussed with Dr. Pérez at length, One out of 2 peripheral cultures grew coag negative staph. None of the cultures were drawn from the permacath either at [facility] or outside. Patient did receive vancomycin. At this point ID recommendations possibility off taking the permacath out by IR but prior to that the intervention radiologist requesting procedure/op note from [facility] where this permacath was inserted. Dr. Pérez to speak with patient's oncologist and if he agrees then permacath can be discontinued. Patient is agreeable with either plan. Patient wants to go home if the procedure happens today. He is willing to come back if his cultures drawn yesterday turned out to be positive.
--- NOTE | 2016-10-13 12:47 | Cons- Infect Disease ---
General Information and HPI Consulting Request Date of Consult: 10/13/16 Requested By: CARROLL ARGUETA,BRENDAN Reason for Consult: Positive blood culture for gram-positive cocci Source of Information: patient History of Present Illness: This is a 71-year-old man with a history of metastatic prostate cancer, initially diagnosed 9 years prior to admission and treated with multiple therapies, status post placement of a right IJ Kevin catheter 2-1/2 weeks prior to admission at [facility] in anticipation of immunotherapy with Provenge, with leukapheresis performed 6 days prior to admission, with the specimen sent to [facility] in [place], where it was rejected because of sterility failure, with peripheral blood cultures 2 sent on the morning of admission, admitted on October 12 after he was sent to the emergency room by his oncologist because of one positive blood culture for gram-positive cocci. He denied any symptoms, with no report of fevers, chills or discomfort at the catheter site. On admission he was afebrile. Laboratory data revealed a white blood cell count of 9000, BUN creatinine 15 and 0.8, with normal liver enzymes. Urinalysis negative. Chest x -ray was negative. He was begun on Vancomycin and has remained afebrile with no complaints overnight. Allergies/Medications Allergies: Coded Allergies: No Known Allergies (10/12/16) Home Med List: Alendronate Sodium (Fosamax) 70 MG TABLET 1 TAB PO QW BONES (Reported) in the morning, at least 30 minutes before the first food, beverage, or medication of the day Every Sunday Dutasteride (Avodart) 0.5 MG CAPSULE 1 CAP PO DAILY PROSTATE (Reported) Lisinopril 10 MG TABLET 1 TAB PO DAILY HTN (Reported) Simvastatin (Simvastatin*) 10 MG TABLET 1 TAB PO QPM CHOLESTEROL (Reported) Past History Travel History Traveled to [place] past 21 day No Medical History Blood Transfusion Hx: No Neurological: NONE EENT: NONE Cardiovascular: hypertension, hyperlipidemia Respiratory: obstructive sleep apnea (on CPAP) Gastrointestinal: NONE Hepatic: NONE Renal: NONE Musculoskeletal: osteopenia Psychiatric: anxiety Endocrine: obesity Blood Disorders: NONE Cancer(s): prostate cancer PHARMACY TECHNOLOGIST/Reproductive: NONE History of MRSA: No History of VRE: No History of CDIFF: No Isolation History: Standard Surgical History Surgical History: none Family History Relations & Conditions If Any: FATHER, , Age 60+. Psychosocial History Where Do You Live? Home Services at Home: None Primary Language: Rw[place] Smoking Status: Never Smoked ETOH Use: occasional use Illicit Drug Use: denies illicit drug use Functional Ability ADLs Independent: dressing, eating, toileting, bathing. Ambulation: independent IADLs Independent: shopping, housework, finances, food prep, telephone, transportation , medication admin. Employment History Employment: Employed Profession/Employer: [employer] Review of Systems Review of Systems All Other Systems: Reviewed and Negative Exam & Diagnostic Data Last 24 Hrs of Vital Signs/I&O Vital Signs Date Time Temp Pulse Resp B/P B/P Pulse O2 O2 Flow FiO2 Mean Ox Delivery Rate 10/13 0935 72 162/86 10/13 0748 98.3 70 22 160/84 99 Room Air 10/13 0307 96 Room Air 10/13 0300 98.4 67 20 168/90 95 Room Air 10/13 0239 178/102 10/13 0221 98.7 82 16 170/102 98 Room Air 10/12 2234 99.4 86 20 194/101 94 Room Air Intake & Output 10/13 1600 10/13 0800 10/13 0000 Intake Total 0 Output Total Balance 0 Intake, Oral 0 Patient 275 lb 275 lb Weight Weight Reported by Patient Reported by Patient Measurement Method Physical Exam Other Physical Findings: He is awake and alert in no acute distress. He is afebrile. Skin reveals no rash. HEENT exam is negative. Neck is supple with no adenopathy; right IJ Kevin catheter with no inflammation at the site. Lungs are clear. Heart regular rhythm with no murmur. Abdomen is obese, soft, nontender with positive bowel sounds. Back no CVA tenderness. Extremities no cyanosis, clubbing or edema. Neuro is without focality. Last 24 Hours of Lab Results: Laboratory Tests 10/13 10/13 10/13 0830 0710 0045 Chemistry Sodium (137 - 145 mmol/L) 136 L Potassium (3.5 - 5.1 mmol/L) 4.0 Chloride (98 - 107 mmol/L) 103 Carbon Dioxide (22 - 30 mmol/L) 23 Anion Gap (5 - 16) 9 BUN (9 - 20 mg/dL) 15 Creatinine (0.7 - 1.2 mg/dL) 0.8 Estimated GFR (>60 ml/min) > 60 BUN/Creatinine Ratio (7 - 25 %) 18.8 Glucose (65 - 99 mg/dL) 107 H Lactic Acid (0.7 - 2.1 mmol/L) 0.8 0.8 Calcium (8.4 - 10.2 mg/dL) 8.7 Magnesium (1.6 - 2.3 mg/dL) 1.9 Total Bilirubin (0.2 - 1.3 mg/dL) 0.8 AST (17 - 59 U/L) 32 ALT (21 - 72 U/L) 53 Alkaline Phosphatase (< 127 U/L) 70 Troponin I (<0.11 ng/ml) 0.02 0.02 Total Protein (6.3 - 8.2 g/dL) 6.9 Albumin (3.5 - 5.0 g/dL) 3.7 Globulin (1.9 - 4.2 gm/dL) 3.2 Albumin/Globulin Ratio (1.1 - 2.2 %) 1.2 Hematology CBC w Diff NO MAN DIFF REQ WBC (4.8 - 10.8 /CUMM) 9.0 RBC (4.70 - 6.10 /CUMM) 4.18 L Hgb (14.0 - 18.0 G/DL) 11.8 L Hct (42 - 52 %) 34.9 L MCV (80.0 - 94.0 FL) 83.5 MCH (27.0 - 31.0 PG) 28.3 RDW (11.5 - 14.5 %) 15.3 H Plt Count (130 - 400 /CUMM) 230 MPV (7.4 - 10.4 FL) 8.1 Gran % (42.2 - 75.2 %) 82.9 H Lymphocytes % (20.5 - 51.1 %) 8.2 L Monocytes % (1.7 - 9.3 %) 6.3 Eosinophils % (0 - 5 %) 1.0 Basophils % (0.0 - 2.0 %) 1.6 Absolute Granulocytes (1.4 - 6.5 /CUMM) 7.5 H Absolute Lymphocytes (1.2 - 3.4 /CUMM) 0.7 L Absolute Monocytes (0.10 - 0.60 /CUMM) 0.6 Absolute Eosinophils (0.0 - 0.7 /CUMM) 0.1 Absolute Basophils (0.0 - 0.2 /CUMM) 0.1 PUBS MCHC (33.0 - 37.0 G/DL) 33.8 10/13 0035 Urines Urine Color (YEL,AMB,STR) YEL Urine Clarity (CLEAR) CLEAR Urine pH (5.0 - 8.0) 6.5 Ur Specific [place] (1.001 - 1.035) 1.020 Urine Protein (NEG,<30 MG/DL) 30 H Urine Ketones (NEG) NEG Urine Nitrite (NEG) NEG Urine Bilirubin (NEG) NEG Urine Urobilinogen (0.1 - 1.0 EU/dl) 0.2 Ur Leukocyte Esterase (NEG) NEG Ur Microscopic SEDIMENT EXAMINED Urine WBC (0 - 2 /HPF) RARE Urine Hemoglobin (NEG) TRACE-INTACT H Urine Glucose (N MG/DL) NEG Last 24 Hours of Gabe Results: Blood cultures 2 October 13 1 bottle positive for gram-positive cocci in clusters Urine culture October 13 pending Diagnostic Data Recent Imaging Findings: Chest x-ray October 13 negative Assessment/Plan Assessment/Plan Impression: This is a 71-year-old man with metastatic prostate cancer, status post recent placement of a right IJ Kevin catheter in anticipation of immunotherapy with Provenge, with leukapheresis performed 6 days prior to admission, with the specimen rejected because of sterility failure, found to have 1 positive blood culture that was drawn peripherally on the morning of admission and which has been identified as coag negative Staph, with no fever or other associated symptoms, no pain or tenderness at the Kevin catheter site and no leukocytosis and with one blood cultures obtained at [place] early this morning also positive for gram-positive cocci in clusters. Have discussed the sterility issue with [facility], the [facility] in [place] that performs the leukapheresis, who stated that the blood was contaminated with gram-positive cocci, which may take several weeks for identification, and that the contamination rate is approximately 3.7%. Though they make no specific recommendations it appears that in most of these cases the catheter is removed. Given that he has now 2 positive peripheral blood cultures for gram-positive cocci in addition to the positive culture of the fluid obtained at the time of the leukapheresis it would seem prudent to remove the catheter, though I still suspect that these positive blood cultures may represent contaminants. The patient is also in favor of removing the catheter at this point. I have also spoken with Dr. Ponce, his oncologist at [facility] in [place], who concurs. With regard to treatment, as he is afebrile with a normal white blood cell count, I feel that he can be followed off antibiotics. Suggestion: 1. Repeat blood cultures 2 (peripherally) 2. Obtain the operative note from the placement of his Kevin catheter from [facility] (requested by IR) 3. Would pursue removal of the Kevin catheter today and culture the tip 4. Discontinue Vancomycin and follow off antibiotics pending above Consult Acknowledgment - Thank you for your consult request.
[2016-10-13 14:28] VITALS: BP 140/82
--- NOTE | 2016-10-13 15:29 | Patient Discharge Instructions ---
Discharge Instructions General Discharge Information You were seen/treated for: Catheter site infection Special Instructions: Please follow up with your oncologist within 7 days of discharge. Please follow up with your PCP within 7 days of discharge. Please take all medication as directed. Diet Recommended Diet: Heart Healthy Activity Activity Self Limited: Yes Acute Coronary Syndrome Inclusion Criteria At DC or during hospital stay patient has or had the following: ACS DIAGNOSIS No Discharge Core Measures Meds if any: Prescribed or Continued at Discharge Meds if any: NOT Prescribed or Continued at Discharge Congestive Heart Failure Inclusion Criteria At DC or during hospital stay patient has or had the following: CHF DIAGNOSIS No Discharge Core Measures Meds if any: Prescribed or Continued at Discharge Meds if any: NOT Prescribed or Continued at Discharge Cerebrovascular accident Inclusion Criteria At DC or during hospital stay patient has or had the following: CVA/TIA Diagnosis No Discharge Core Measures Meds if any: Prescribed or Continued at Discharge Meds if any: NOT Prescribed or Continued at Discharge Venous thromboembolism Inclusion Criteria VTE Diagnosis No VTE Type NONE VTE Confirmed by (Test) NONE Discharge Core Measures - Per Current guidelines, there needs to be overlap - treatment for the first 5 days of Warfarin therapy. - If discharged on Warfarin prior to 5 days of - overlap therapy, the patient will need to be - assessed for post discharge needs including - *Post discharge parental anticoagulation - *Warfarin and/or parental anticoagulation education - *Follow up date to check INR post discharge At least 5 days overlap therapy as Inpatient No Meds if any: Prescribed or Continued at Discharge Note: Overlap Therapy is Warfarin and Anticoagulant Meds if any: NOT Prescribed or Continued at Discharge
[2016-10-13 18:40] VITALS: BP 142/86
[2016-10-13 23:08] VITALS: BP 124/78
[2016-10-14 07:05] VITALS: BP 132/80
--- NOTE | 2016-10-14 08:29 | PN- Housestaff ---
CONSTANZA ARGUETA,[facility] 10/14/16 0829: Subjective Follow-up For: Gram-positive bacteremia Subjective: Patient was seen and examined this morning, overnight complaints, want to be discharged. Patient is afebrile, vital signs are stable. Tip of catheter was removed yesterday growing gram positive cocci. Bilateral lower extremity edema +1 was noticed, the patient is not on Lasix, kidney function are within normal, swelling seemed to be chronic. Review of Systems Constitutional: Reports: see HPI. Objective Last 24 Hrs of Vital Signs/I&O Vital Signs Date Time Temp Pulse Resp B/P B/P Pulse O2 O2 Flow FiO2 Mean Ox Delivery Rate 10/14 0811 59 132/80 10/14 0705 98.0 59 20 132/80 96 Room Air 10/13 2308 98.4 68 18 124/78 93 Room Air 10/13 1840 98.4 68 18 142/86 95 Room Air Room Air 10/13 1428 98.4 64 20 140/82 95 Room Air Intake & Output 10/14 1600 10/14 0800 10/14 0000 Intake Total 240 840 Output Total Balance 240 840 Intake, Oral 240 840 Physical Exam General Appearance: Alert, Oriented X3, Cooperative, No Acute Distress Skin: No Rashes, No Breakdown, No Significant Lesion Cardiovascular: Regular Rate, Normal S1, Normal S2, No Murmurs Lungs: Clear to Auscultation, Normal Air Movement Abdomen: Normal Bowel Sounds, Soft, No Tenderness, No Hepatospenomegaly, No Masses Neurological: Normal Gait, Normal Speech, Strength at 5/5 X4 Ext, Normal Tone, Sensation Intact, Cranial Nerves 3-12 NL, Reflexes 2+ Extremities: No Clubbing, No Cyanosis, Normal Pulses, No Tenderness/Swelling, BL LE pedal edema +1 Assessment/Plan Assessment: Mr. Macias is a 71 y/o morbidly obese M with PMHx of stage IV adenocarcinoma of the prostate s/p recent RIJ hemodialysis catheter placement in anticipation for immunotherapy, HTN and HLD who is sent in for further evaluation of positive blood cultures. #Positive blood cultures: Presents with blood cultures, both aerobic and anaerobic, from the RIJ hemodialysis catheter growing gram positive cocci in clusters. This likely represents colonization as peripheral blood cultures were negative and patient has no fever, leukocytosis or other signs of infection including inflammation at the catheter site. However catheter site infection should also be considered. No other obvious source of infection. Patient is asymptomatic. CXR is clear and UA is unremarkable. * Blood cultures: 1/2 is positive for staph coagulase-negative mostly contamination * ID consultation was obtained with recommendation to follow off antibiotics and follow up blood culture and tip of the catheter culture * Patient received 1 dose of vancomycin 1 g IV daily on admission * Catheter tip culture grew gram-positive cocci * Blood culture from 10/13/16 is negative so far * We'll continue to follow up culture, is continue to be negative and patient didn't develop any fever with anticipated discharge tomorrow * Recommendation to panculture if patient develops fever #Stage IV adenocarcinoma of the prostate: Diagnosed in 2007. Currently with extensive lymph node involvement but no other mets including bone mets. Was recently switched from Zytigo and prednisone to immunotherapy with Provenge, which involves 3 infusions about 2 weeks apart, each preceded by leukapheresis. Also on androgen deprivation therapy with dutasteride 0.5 mg PO daily and leuprolide injections. Follows with Dr. Justyn Ponce at [facility]. * Oncology consult placed. Appreciate their recs. * Continue finasteride 5 [address] PO daily in place of dutasteride as the latter is not on formulary. #Ventricular ectopy: EKG on admission with ventricular trigeminy. Troponin negative. K 4 and Mg 1.9. * Replete to K >4 and Mg >2. 400 mg of oral magnesium administered. #HTN: Hypertensive on initial presentation with BP of 194/101. Likely secondary to skipping his dose of lisinopril as well as anxiety. * Continue [id number] lisinopril 10 mg PO daily. Administer first dose as soon as possible. #Osteopenia: * Continue oxdih-xs-amvllwaju alendronate 70 mg PO once per week. #HLD: Takes simvastatin 10 mg PO daily. * Atorvastatin 10 mg PO daily. #TROY: * Continue rofaq-ye-iolozbehn nocturnal CPAP. Diet: Heart Healthy DVT PPx: Lovenox and ALPs Pain: Dilaudid 0.5 mg IV Q6H PRN for severe pain (scale 7-10) Tylenol 1 g IV Q6H PRN for moderate pain (scale 4-6) Tylenol 650 mg PO Q6H PRN for mild pain (scale 1-3) CODE: FULL Problem List: 1. HLD (hyperlipidemia) 2. HTN (hypertension) 3. Adenocarcinoma of prostate, stage 4 4. Positive blood cultures 5. 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 Admitted 10/12, Ashcath removed. Blood culture from early 10/13 growing GPC, culture of tip of catheter also growing GPC. Repeat blood cultures thus far negative. Patient is afebrile, normal WBC, and completely asymptomatic. He looks well and has no complaints. He is anxious to get home and resume his cancer treatment. Plan - Continue on general medicine - Follow culture results - Follow ID recommendations - Continue to monitor off of antibiotics - Continue home medications - If febrile repeat cultures - DVT PPx - Anticipated discharge tomorrow pending culture results and ID recommendations
[2016-10-14 08:31] LABS: ABSOLUTE BASOPHIL COUNT 0 /CUMM (0.0-0.2); ABSOLUTE EOSINOPHIL COUNT 0.2 /CUMM (0.0-0.7); ABSOLUTE GRANULOCYTE CT 3.9 /CUMM (1.4-6.5); ABSOLUTE LYMPH COUNT 1.2 /CUMM (1.2-3.4); ABSOLUTE MONOCYTE COUNT 0.5 /CUMM (0.10-0.60); BASOPHIL % 0.6 % (0.0-2.0); EOSINOPHIL % 2.9 % (0-5); GRANULOCYTE % 67.4 % (42.2-75.2); HEMATOCRIT 35.4 % (42-52); MEAN CORPUSCULAR HGB 28.4 PG (27.0-31.0); MEAN CORPUSCULAR HGB CONC 33.7 G/DL (33.0-37.0); MEAN CORPUSCULAR VOLUME 84.3 FL (80.0-94.0); MEAN PLATELET VOLUME 8.2 FL (7.4-10.4); PLATELET COUNT 260 /CUMM (130-400); RBC DISTRIBUTION WIDTH 15.5 % (11.5-14.5); WHITE BLOOD CELL COUNT 5.9 /CUMM (4.8-10.8)
[2016-10-14 14:40] VITALS: BP 134/80
[2016-10-14 22:12] VITALS: BP 117/69
--- NOTE | 2016-10-15 07:16 | INTERVENTIONAL RADIOLOGY RPT ---
CLINICAL HISTORY: This patient is a 71-year-old male with metastatic prostate cancer, who requires removal of a right tunneled internal jugular pheresis catheter catheter as the patient is bacteremic. PROCEDURES: 1. Removal of central venous catheter. 2. Culture of catheter tip. PHYSICIANS: Dr. Dorene Deleon (attending). MEDICATIONS: 0 mL of 1% lidocaine SQ. COMPLICATIONS: None. ESTIMATED BLOOD LOSS: <50 mL. SPECIMENS: Catheter tip. CONTRAST: None. FLUOROSCOPY TIME: 0.1 minutes. PROCEDURE NOTE: Informed consent was obtained from the patient prior to the procedure. During this process, the procedure and potential alternatives were explained along with the intended outcome and benefits. The risks of the procedure, including the possibility of an unsuccessful procedure, as well as the risk of not doing the procedure, were discussed. The patient was given the opportunity to ask questions regarding the procedure and appeared competent to make decisions. A signed consent form documenting this discussion was placed in the medical record. A time-out procedure was performed. The patient was placed supine on the fluoroscopy table. The catheter entry site was prepped and draped in the usual sterile fashion. All elements of maximal sterile barrier technique followed including use of cap, mask, sterile gown, sterile gloves, a sterile full body drape and hand hygiene. Also followed skin preparation with 2% chlorhexidine for cutaneous antisepsis, and sterile ultrasound preparation with sterile gel and probe cover when applicable. The catheter was removed using traction. The cuff was removed with the catheter. Direct pressure was applied at the venotomy site and along the tunnel until hemostasis was achieved. The exit site of the tunnel was sealed with glue. The catheter tip was sent for culture. FINDINGS: The exit site of the catheter tunnel was non- erythematous and non- tender. IMPRESSION: Successful removal of the tunneled central venous catheter in the right chest. PLAN: 1. The patient was stable after the procedure and will be transferred to the floor. 2. The patient was instructed regarding wound care. 3. The patient is instructed to present to the emergency room or interventional radiology should the site bleed or if there are new signs of systemic or local infection. Otherwise, the patient will follow up with their primary care physician if indicated.
[2016-10-15 07:17] VITALS: BP 138/81
--- NOTE | 2016-10-15 08:17 | PN- Housestaff ---
CONSTANZA ARGUETA,[facility] 10/15/16 0817: Subjective Follow-up For: Gram-positive bacteremia Subjective: Patient was seen and examined this morning, alert oriented 3, overnight complaints, afebrile, vital signs are stable. Patient was cleared by ID for discharge. Overnight events reported by the nurse of the patient. Review of Systems Constitutional: Reports: see HPI. Objective Last 24 Hrs of Vital Signs/I&O Vital Signs Date Time Temp Pulse Resp B/P B/P Pulse O2 O2 Flow FiO2 Mean Ox Delivery Rate 10/15 0839 61 138/81 10/15 0717 98.3 61 20 138/81 95 10/14 2212 98.2 58 20 117/69 95 CPAP 10/14 1440 98.6 63 20 134/80 94 Room Air Intake & Output 10/15 1600 10/15 0800 10/15 0000 Intake Total 240 240 Output Total Balance 240 240 Intake, Oral 240 240 Physical Exam General Appearance: Alert, Oriented X3, Cooperative, No Acute Distress Skin: No Rashes, No Breakdown, No Significant Lesion HEENT: Atraumatic, PERRLA, EOMI, Mucous Membr. moist/pink Cardiovascular: Regular Rate, Normal S1, Normal S2, No Murmurs Lungs: Clear to Auscultation, Normal Air Movement Abdomen: Normal Bowel Sounds, Soft, No Tenderness, No Hepatospenomegaly, No Masses Neurological: Normal Gait, Normal Speech, Strength at 5/5 X4 Ext, Normal Tone, Sensation Intact, Cranial Nerves 3-12 NL, Reflexes 2+ Extremities: No Clubbing, No Cyanosis, No Edema, Normal Pulses, No Tenderness/ Swelling Assessment/Plan Assessment: Mr. Macias is a 71 y/o morbidly obese M with PMHx of stage IV adenocarcinoma of the prostate s/p recent RIJ hemodialysis catheter placement in anticipation for immunotherapy, HTN and HLD who is sent in for further evaluation of positive blood cultures. #Positive blood cultures: Presents with blood cultures, both aerobic and anaerobic, from the RIJ hemodialysis catheter growing gram positive cocci in clusters. This likely represents colonization as peripheral blood cultures were negative and patient has no fever, leukocytosis or other signs of infection including inflammation at the catheter site. However catheter site infection should also be considered. No other obvious source of infection. Patient is asymptomatic. CXR is clear and UA is unremarkable. * Blood cultures: 1/2 is positive for staph coagulase-negative mostly contamination * ID consultation was obtained with recommendation to follow off antibiotics and follow up blood culture and tip of the catheter culture * Patient received 1 dose of vancomycin 1 g IV daily on admission * Catheter tip culture grew gram-positive cocci * Blood culture from 10/13/16 is negative so far * We'll continue to follow up culture, is continue to be negative and patient didn't develop any fever with anticipated discharge tomorrow * Recommendation to panculture if patient develops fever #Stage IV adenocarcinoma of the prostate: Diagnosed in 2007. Currently with extensive lymph node involvement but no other mets including bone mets. Was recently switched from Zytigo and prednisone to immunotherapy with Provenge, which involves 3 infusions about 2 weeks apart, each preceded by leukapheresis. Also on androgen deprivation therapy with dutasteride 0.5 mg PO daily and leuprolide injections. Follows with Dr. Justyn Ponce at [facility]. * Oncology consult placed. Appreciate their recs. * Continue finasteride 5 mg PO daily in place of dutasteride as the latter is not on formulary. #Ventricular ectopy: EKG on admission with ventricular trigeminy. Troponin negative. K 4 and Mg 1.9. * Replete to K >4 and Mg >2. 400 mg of oral magnesium administered. #HTN: Hypertensive on initial presentation with BP of 194/101. Likely secondary to skipping his dose of lisinopril as well as anxiety. * Continue cbwrr-fy-pfvdrfsxx lisinopril 10 mg PO daily. Administer first dose as soon as possible. #Osteopenia: * Continue jydjq-vh-xqjbsjlzz alendronate 70 mg PO once per week. #HLD: Takes simvastatin 10 mg PO daily. * Atorvastatin 10 mg PO daily. #TROY: * Continue rbopq-rc-vvuoxcncf nocturnal CPAP. Diet: Heart Healthy DVT PPx: Lovenox and ALPs Pain: Dilaudid 0.5 mg IV Q6H PRN for severe pain (scale 7-10) Tylenol 1 g IV Q6H PRN for moderate pain (scale 4-6) Tylenol 650 mg PO Q6H PRN for mild pain (scale 1-3) CODE: FULL Patient was cleared by ID for discharge today, blood culture from the ninth continue to be negative, will obtain blood culture before discharge. Problem List: 1. Bacteremia due to Gram-positive bacteria 2. Positive blood cultures 3. 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 Admitted 10/12, Ashcath removed. Blood culture from early 10/13 growing GPC, culture of tip of catheter also growing GPC. Repeat blood cultures thus far negative. Patient is afebrile, normal WBC, and completely asymptomatic. He looks well and has no complaints. Plan - Stable for discharge home - Per ID will draw blood cultures prior to discharge to be followed up as an outpatient - Continue home medications - Follow up with oncology and PCP
[2016-10-15 08:39] VITALS: BP 138/81
--- NOTE | 2016-10-15 09:41 | PN- Infect Dx ---
Subjective Subjective: Afebrile without complaints Objective Last 24 Hrs of Vital Signs/I&O Vital Signs Date Time Temp Pulse Resp B/P B/P Pulse O2 O2 Flow FiO2 Mean Ox Delivery Rate 10/15 0839 61 138/81 10/15 0717 98.3 61 20 138/81 95 10/14 2212 98.2 58 20 117/69 95 CPAP 10/14 1440 98.6 63 20 134/80 94 Room Air Intake & Output 10/15 1600 10/15 0800 10/15 0000 Intake Total 240 240 Output Total Balance 240 240 Intake, Oral 240 240 Physical Exam Other Physical Findings: He appears well in no acute distress Neck site of recent right IJ catheter with no inflammation Lungs are clear Heart regular rhythm with no murmur Results Last 24 Hours of Lab Results: Laboratory Tests 10/15 0740 Chemistry Sodium (137 - 145 mmol/L) 139 Potassium (3.5 - 5.1 mmol/L) 3.8 Chloride (98 - 107 mmol/L) 102 Carbon Dioxide (22 - 30 mmol/L) 30 Anion Gap (5 - 16) 7 BUN (9 - 20 mg/dL) 17 Creatinine (0.7 - 1.2 mg/dL) 0.9 Estimated GFR (>60 ml/min) > 60 BUN/Creatinine Ratio (7 - 25 %) 18.9 Hematology CBC w Diff Pending WBC Pending RBC Pending Hgb Pending Hct Pending MCV Pending MCH Pending RDW Pending Plt Count Pending MPV Pending PUBS MCHC Pending Last 24 Hours of Gabe Results: Blood cultures October 13 one bottle positive for coag-negative Staph Repeat blood cultures 2 October 13 negative Kevin Catheter October 13 greater than 15 colonies of gram-positive cocci Assessment/Plan Impression: Remains stable with temperatures and white blood cell count normal off antibiotics status post removal of what appears to be an infected Kevin catheter, with the catheter tip culture revealing greater than 15 colonies of gram- positive cocci. The significance of the positive blood culture from admission as well as the one drawn as an outpatient is not clear and still suspect they may represent contaminants, and as he remains stable and the repeat blood cultures sent later on October 13 are negative feel that he can continue to be followed off antibiotics. Suggestion: 1. Repeat blood cultures 2 today if possible 2. Continue to follow off antibiotics
[2016-10-15 09:48] LABS: ABSOLUTE BASOPHIL COUNT 0.1 /CUMM (0.0-0.2); ABSOLUTE EOSINOPHIL COUNT 0.2 /CUMM (0.0-0.7); ABSOLUTE GRANULOCYTE CT 4.7 /CUMM (1.4-6.5); ABSOLUTE LYMPH COUNT 1.4 /CUMM (1.2-3.4); ABSOLUTE MONOCYTE COUNT 0.7 /CUMM (0.10-0.60); BASOPHIL % 0.9 % (0.0-2.0); HEMATOCRIT 35.3 % (42-52); MEAN CORPUSCULAR HGB 28.4 PG (27.0-31.0); MEAN CORPUSCULAR HGB CONC 33.8 G/DL (33.0-37.0); MEAN CORPUSCULAR VOLUME 84.3 FL (80.0-94.0); MEAN PLATELET VOLUME 8.1 FL (7.4-10.4); PLATELET COUNT 284 /CUMM (130-400); RBC DISTRIBUTION WIDTH 15.4 % (11.5-14.5); RED BLOOD CELL CT 4.19 /CUMM (4.70-6.10); WHITE BLOOD CELL COUNT 7.1 /CUMM (4.8-10.8)
--- NOTE | 2016-10-15 18:45 | Discharge Summary ---
Visit Information Visit Dates Admission Date: 10/13/16 Discharge Date: 10/15/16 Hospital Course Course Attending Physician: BRENDAN HODGES MD Primary Care Physician: CARI BARRAZA MD Consulting Request: 1 Consulting Specialty: Hematology/Oncology Consulting Physician: Dr. Som Merino MD Reason for Consult: Stage IV adenocarcinoma of the prostate Consulting Request: 2 Consulting Specialty: Infectious Disease Consulting Physician: Dr. Beto MD Reason for Consult: Bactermeia secondary to right IJ catheter Hospital Course: Mr. Escobar is a pleasant 71 year old male with PMH of stage IV adenocarcinoma of the prostate s/p recent RIJ hemodialysis catheter placement in anticipation for immunotherapy, HTN and HLD who was sent in to the [facility] for further evaluation of positive blood cultures. Patient was diagnosed with prostate cancer in 2007 and since then has tried multiple therapy regimens including cyberknife, leuprolide, dutasteride, enzalutamide, Zytiga and prednisone. Patient has been following up with his oncologist Dr. Justyn Duncan at the [facility] in [place] and according to his clinic notes, he has recently been experiencing advancing disease with increasing PSA despite multiple treatment modalities that were tried. On 09/25, a RIJ hemodialysis catheter was placed at [facility] in anticipation for Provenge therapy. 6 days prior to current presentation (10/06), patient underwent leukapheresis at [facility] and was supposed get the Provenge infusion three days later as part of the protocol. However, his oncologist was informed that his blood samples were contaminated, thus the scheduled infusion was canceled and patient was sent to the ED for further care. In the ED: Vital signs showed T 99.4, HR 86, RR 20, BP 194/101, O2 94% on RA. Labs were unremarkable. CXR was negative for acute pulmonary pathology and EKG showed SR with ventricular trigeminy. Physical exam on presentation: General Appearance Alert, Oriented X3, No Acute Distress, Obese Skin No Rashes, RIJ HD Catheter Site without Erythema, Swelling or Tenderness HEENT Atraumatic, Mucous Membr. moist/pink Neck Supple Cardiovascular Regular Rate, Normal S1, Normal S2, No Murmurs, Gallops, Rubs Lungs Clear to Auscultation Abdomen Soft, No Tenderness, Positive Bowel Sounds Extremities 1+ Pitting Edema on Bilateral Lower Extremities Patient was admitted to the general medicine floor and the following was the management: 1. Coagulase negative staph bacteremia secondary to right IJ central catheter: Patient was asymptomatic on presentation and no pulmonary, abdominal, urinary or other source of infection appreciated. Peripheral blood cultures were rechecked and cultures form RIJ catheter were drawn x 2. ID and hematology/oncology consults were placed. Patient was empirically started on IV vancomycin. Dr. Beto MD was able to contact [facility], the [facility] in [place] who performs the leukapheresis. Though they made no specific recommendations, it appeared that in most of the cases with positive blood cultures, patient's had their catheter removed. Operative reports on right IJ cathter placement were obtained from [facility] and IV vancoymcin was discontinued as IJ catheter was later removed on 10/13/16 in the IR suite. The patient tolerated the procedure well and the following day remained afebrile without leukocytosis. Angel was discharged with recommendations to follow up closely with both his oncologist and PCP who can monitor for fever, chills or other concerning symptoms of bacteremia. 2. Stage 4 adenocarcinoma of the prostate: Diagnosed in 2007, currently with extensive lymph node involvement but no other metastasis including bone mets. Angel was recently switched from Zytigo and prednisone to immunotherapy with Provenge, which involves 3 infusions about 2 weeks apart, each preceded by leukapheresis. He is also on androgen deprivation therapy with dutasteride 0.5 mg PO daily and leuprolide injections. Oncology consult was obtained on admission. Patient was started on finasteride 5 [address] PO daily in place of dutasteride as the latter was not on formulary. Patient was discharged with instructions to continue all home medications and to follow up with Dr. Rosario MD within 7 days of discharge for continued care. 3. Ventricular ectopy: EKG on admission with ventricular trigeminy. Troponin was negative. Potassium level noted to be adequate at 4 and magnesium adequate at 1.9. 400 mg of oral magnesium administered. No further issues noted during stay. PCP should consider monitoring after discharge and occasional EKG> 4. HTN: Hypertensive on initial presentation with BP of 194/101. Likely secondary to skipping his dose of lisinopril as well as anxiety. His home lisinopril was continued and his BP was subsequently adequate during his admission. He was instructed to continue this medication after discharge. 5. Osteopenia: During his stay, he was continued on his qtksf-om-emwwepjaq alendronate 70 mg PO once per week. He will continue this after discharge. 6. HLD: Patient was continued on statin therapy during admission and after discharge. 7. TROY: Angel was continued on nocturnal CPAP during his stay. 8. Diet: heart healthy. 9. Code status: FULL 10. DVT Prophylaxis: ALPS and SC Lovenox Complications: None. Allergies: Coded Allergies: No Known Allergies (10/12/16) Significant Procedures: CXR: FINDINGS: Right-sided central venous catheter terminates near the cavoatrial junction. The lungs are well expanded. There is no focal consolidation, edema, or effusion. No pneumothorax. The cardiomediastinal silhouette is within normal limits. No acute osseous abnormality. IMPRESSION: No acute pulmonary findings. Right IJ central venous catheter removal: PROCEDURES: 1. Removal of central venous catheter. 2. Culture of catheter tip. PHYSICIANS: Dr. Dorene Deleon (attending). MEDICATIONS: 0 mL of 1% lidocaine SQ. COMPLICATIONS: None. ESTIMATED BLOOD LOSS: <50 mL. SPECIMENS: Catheter tip. CONTRAST: None. FLUOROSCOPY TIME: 0.1 minutes. PROCEDURE NOTE: Informed consent was obtained from the patient prior to the procedure. During this process, the procedure and potential alternatives were explained along with the intended outcome and benefits. The risks of the procedure, including the possibility of an unsuccessful procedure, as well as the risk of not doing the procedure, were discussed. The patient was given the opportunity to ask questions regarding the procedure and appeared competent to make decisions. A signed consent form documenting this discussion was placed in the medical record. A time-out procedure was performed. The patient was placed supine on the fluoroscopy table. The catheter entry site was prepped and draped in the usual sterile fashion. All elements of maximal sterile barrier technique followed including use of cap, mask, sterile gown, sterile gloves, a sterile full body drape and hand hygiene. Also followed skin preparation with 2% chlorhexidine for cutaneous antisepsis, and sterile ultrasound preparation with sterile gel and probe cover when applicable. The catheter was removed using traction. The cuff was removed with the catheter. Direct pressure was applied at the venotomy site and along the tunnel until hemostasis was achieved. The exit site of the tunnel was sealed with glue. The catheter tip was sent for culture. FINDINGS: The exit site of the catheter tunnel was non- erythematous and non- tender. IMPRESSION: Successful removal of the tunneled central venous catheter in the right chest. PLAN: 1. The patient was stable after the procedure and will be transferred to the floor. 2. The patient was instructed regarding wound care. 3. The patient is instructed to present to the emergency room or interventional radiology should the site bleed or if there are new signs of systemic or local infection. Otherwise, the patient will follow up with their primary care physician if indicated. Disposition Summary Disposition Principal Diagnosis: Coagulase negative staph bacteremia secondary to right IJ central catheter Additional Diagnosis: Metastatic prostate cancer HTN HLD Discharge Disposition: home or self care Discharge Instructions General Discharge Information Code Status: Full Code Patient's Diet: Heart Healthy diet. Patient's Activity: Self-limited, as tolerated. Follow-Up Instructions/Appts: Please follow up with your oncologist within 7 days of discharge. Please follow up with your PCP within 7 days of discharge. Please take all medication as directed. Medications at Discharge Discharge Medications: Continue taking these medications: Dutasteride (Avodart) 0.5 MG CAPSULE 1 Capsule ORAL DAILY Lisinopril (Lisinopril) 10 MG TABLET 1 Tablet ORAL DAILY Simvastatin (Simvastatin*) 10 MG TABLET 1 Tablet ORAL Every night Alendronate Sodium (Fosamax) 70 MG TABLET 1 Tablet ORAL Once a Week Instructions: in the morning, at least 30 minutes before the first food, beverage, or medication of the day Every Sunday Copies To: MADI ARGUETA,BUSHRA DUNCAN MD,JUSTYN Attending MD Review Statement Documenting Attending: MARISABEL TORO MD
== END 2016-10-15 12:15 | DRG 315 ==
LOC: ERH 22:29 → ERHI 10-13 00:02 → 2NB 10-13 00:02 → ENRESERV 10-13 01:15 → 2NB 10-13 02:40 → CMPBEDREQ 10-13 10:54 → ENPENDDIS 10-15 10:11 → 2NB 10-15 12:15
PROVIDERS: Internal Medicine Hematology & Oncology; Physician Assistant Medical; Preventive Medicine Public Health & General Preventive Medicine; ADMIT Student in an Organized Health Care Education/Training Program
PROC: 02PAX3Z Removal of Infusion Device from Heart, External Approach (ICD-10-PCS; principal; 2016-10-13)
DX: T80.211A Bloodstream infection due to central venous catheter, initial encounter (principal); T81.4XXA Infection following a procedure, initial encounter; C61 Malignant neoplasm of prostate; E66.01 Morbid (severe) obesity due to excess calories; Z68.38 Body mass index [BMI] 38.0-38.9, adult; I10 Essential (primary) hypertension; E78.5 Hyperlipidemia, unspecified; M85.80 Other specified disorders of bone density and structure, unspecified site; R00.8 Other abnormalities of heart beat; G47.33 Obstructive sleep apnea (adult) (pediatric)
CPT/HCPCS: 04007; 2NBP; 87070; 87184; 87205; 36415; 81001; 82436; 87040; 87086; 87147; 93005; 93010; J1650; J3370; J7040

== ENCOUNTER 2017-09-06 02:11 | Inpatient (IN) | payer OTHER ==
[~2017-09-06] VITALS: Ht 180.3 cm; Wt 127.0 kg
[~2017-09-06 02:11] MED LIST: AVODART0.5 M1 PO; FOSAMAX70 M1 PO; LISINOPRIL10 M1 PO; SIMVASTATIN10 M1 PO
--- NOTE | 2017-09-06 02:41 | ED DYSPNEA/ASTHMA COMPLAINT ---
History of Present Illness General Chief Complaint: Dyspnea (COPD, CHF, Other) Stated Complaint: BIBA SOB Source: patient, old records, EMS Exam Limitations: no limitations Vital Signs & Intake/Output Vital Signs & Intake/Output Vital Signs Date Time Temp Pulse Resp B/P B/P Pulse O2 O2 Flow FiO2 Mean Ox Delivery Rate 09/06 529 98.6 09/06 529 98.6 81 20 100/54 91 Nasal 2.0L Cannula 09/06 0302 102.1 09/06 0234 91 Nasal 2.0L Cannula 09/06 021 102.3 97 20 143/76 86 Allergies Coded Allergies: No Known Allergies (10/12/16) Reconcile Medications Alendronate Sodium (Fosamax) 70 MG TABLET 1 TAB PO QW BONES (Reported) in the morning, at least 30 minutes before the first food, beverage, or medication of the day Every Sunday Dutasteride (Avodart) 0.5 MG CAPSULE 1 CAP PO DAILY PROSTATE (Reported) Lisinopril 10 MG TABLET 1 TAB PO DAILY HTN (Reported) Simvastatin (Simvastatin*) 10 MG TABLET 1 TAB PO QPM CHOLESTEROL (Reported) Triage Note: BIBA FROM HOME WITH C/O DIFFICULTY BREATHING. PT REPORTS S/P PROSTATE CA WITH CHEMO "GIVING A BULID UP OF FLUID IN LUNGS, THEY GIVE ME LASIX". PT 88 % ON RA , PT PLACED ON 2L NC SPO2 91%, DR MEADOWS IN ROOM. PT A+O X3,MAEX4. Triage Nurses Notes Reviewed? yes Onset: 3 days Duration: day(s):, continues in ED, getting worse Timing: recent history Severity: severe Activities at Onset: activity, rest Prior Episodes/Possible Cause: illness exposure Modifying Factors: Improves With: rest. Worsens With: movement. Associated Symptoms: cough, loss of appetite, weakness HPI: 3 days prior to admission patient complains of productive cough increased shortness of breath weakness chills. He received chemotherapy last week and complains of nausea vomiting anorexia. He denies fever chest pain diarrhea abdominal pain dysuria rash bleeding. Past History Travel History Traveled to [place] past 21 day No Medical History Any Pertinent Medical History? see below for history Neurological: NONE EENT: NONE Cardiovascular: hypertension, hyperlipidemia Respiratory: obstructive sleep apnea (on CPAP) Gastrointestinal: NONE Hepatic: NONE Renal: NONE Musculoskeletal: osteopenia Psychiatric: anxiety Endocrine: obesity Blood Disorders: NONE Cancer(s): prostate cancer BARREL PLATER/Reproductive: NONE History of MRSA: No History of VRE: No History of CDIFF: No Surgical History Surgical History: N Psychosocial History Who do you live with Patient/Self Services at Home None What is your primary language Italian Tobacco Use: Never used ETOH Use: denies use Illicit Drug Use: denies illicit drug use Family History Family History, If Any: FATHER, , Age 60+. Hx Contributory? No Review of Systems Review of Systems Constitutional: Reports: see HPI, chills, malaise, weakness. EENTM: Reports: no symptoms. Respiratory: Reports: see HPI, cough, short of breath. Cardiovascular: Reports: no symptoms. GI: Reports: see HPI, abdominal pain. Genitourinary: Reports: no symptoms. Musculoskeletal: Reports: no symptoms. Skin: Reports: no symptoms. Neurological/Psychological: Reports: no symptoms. Hematologic/Endocrine: Reports: no symptoms. Immunologic/Allergic: Reports: no symptoms. All Other Systems: Reviewed and Negative Physical Exam Physical Exam General Appearance: well developed/nourished, alert, awake, anxious, moderate distress, obese Head: atraumatic, normal appearance Eyes: Bilateral: normal appearance, PERRL, EOMI. Ears, Nose, Throat: normal pharynx, normal ENT inspection, hearing grossly normal Neck: normal inspection, supple, full range of motion, no midline tenderness Respiratory: chest non-tender, decreased breath sounds, crackles, respiratory distress Cardiovascular: regular rate/rhythm, normal peripheral pulses, norml femoral pulses equa Peripheral Pulses: 4+ carotid (R), 4+ carotid (L) Gastrointestinal: normal bowel sounds, soft, non-tender, no organomegaly Extremities: normal inspection, normal capillary refill, normal range of motion Neurologic/Psych: no motor/sensory deficits, awake, alert, oriented x 3, certified genetic counselor II- XII nml as tested Skin: intact, normal color, warm/dry Lymphatic: no anterior cervical giovanni Core Measures ACS in differential dx? No CVA/TIA Diagnosis No Sepsis Present: No Sepsis Focused Exam Completed? No Progress Differential Diagnosis: bronchitis, CHF, COPD, pneumonia Plan of Care: Orders Procedure Date/time Status Regular Diet 09/06 B Active Code Status 09/06 504 Active Pathway - chart 09/07 503 Active House Staff 09/07 503 Active Patient Data 05/03 0504 Active Code Status 09/06 0504 Complete CTA CHEST-PULMONARY EMBOLISM 09/06 0452 Active Patient Data 09/06 0414 Active OXYGEN SETUP (GEN) 09/06 332 Active Saline Lock 09/06 332 Active Admit to inpatient 09/06 332 Active Vital Signs 09/06 332 Active Activity/Ambulation 09/06 332 Active Code Status 09/06 332 Complete BLOOD CULTURE 09/06 233 Active URINALYSIS 09/06 233 Active TROPONIN LEVEL 09/06 023 Complete MAGNESIUM 09/06 023 Complete COMPREHENSIVE METABOLIC PANEL 09/06 233 Complete CBC WITHOUT DIFFERENTIAL 09/06 233 Complete B-TYPE NATRIURETIC PEP (BNP) 09/06 233 Complete EKG 09/06 233 Active Intake & Output 09/06 232 Active VTE Mechanical Prophylaxis 09/06 UNK Active Current Medications Sig/Heath Start time Last Medication Dose Stop Time Status Admin Heparin Sodium 5,000 UNIT Q8 09/06 0600 UNVr (Porcine) Acetaminophen 325 MG Q6 PRN 09/06 0515 UNVr (Tylenol) Laboratory Tests 09/06/17 0515: Urine Color Pending, Urine Clarity Pending, Urine pH Pending, Ur Specific [place] Pending, Urine Protein Pending, Urine Ketones Pending, Urine Nitrite Pending, Urine Bilirubin Pending, Urine Urobilinogen Pending, Ur Leukocyte Esterase Pending, Ur Microscopic SEDIMENT EXAMINED, Urine RBC Pending, Urine Hemoglobin Pending, Urine Glucose Pending 09/06/17 0230: Anion Gap 15, Estimated GFR 50 L, BUN/Creatinine Ratio 23.6, Glucose 136 H, Calcium 8.0 L, Magnesium 1.7, Total Bilirubin 1.1, AST 24, ALT 26, Alkaline Phosphatase 157 H, Troponin I 0.03, Vsj-D-Cmwggdlvmif Pept 1050 H, Total Protein 6.9, Albumin 3.9, Globulin 3.0, Albumin/Globulin Ratio 1.3, CBC w Diff MAN DIFF ORDERED, RBC 3.97 L, MCV 83.4, MCH 27.8, MCHC 33.4, RDW 20.9 H, MPV 8.2, Gran % 90.4 H, Lymphocytes % 5.2 L, Monocytes % 3.8, Eosinophils % 0.5, Basophils % 0.1, Absolute Granulocytes 24.2 H, Segmented Neutrophils 72, Band Neutrophils 6 H, Absolute Lymphocytes 1.4, Lymphocytes 11 L, Monocytes 10 H, Absolute Monocytes 1.0 H, Absolute Eosinophils 0.1, Absolute Basophils 0, Metamyelocytes 1, Nucleated RBCs 2 H, Platelet Estimate ADEQUATE, Polychromasia 1+, Basophilic Stippling RARE, Anisocytosis 1+, Elliptocytes 1+ Microbiology 09/06 244 BLOOD: Blood Culture - RECD 09/07 227 BLOOD: Blood Culture - RECD Initial ED EKG: normal axis, normal intervals, normal p-waves, normal QRS complex, normal sinus rhythm, no ST T wave changes Prior EKG: unchanged Rhythm Strip: normal sinus rhythm Departure Departure Disposition: STILL A PATIENT Condition: Stable Clinical Impression Primary Impression: Pneumonia Secondary Impressions: Fever, Hypoxia, Leukocytosis Referrals: Marcellus Vasquez MD (PCP/Family) Departure Forms: Customer Survey General Discharge Information Admission Note Spoke With: Thang Tyson MD Documentation of Exam: Documentation of any treatments & extenuating circumstances including Concerns Regarding Discharge (functional status, medication knowledge or non-compliance, living conditions, etc.) that warrant an admission rather than observation: Supplemental oxygen IV antibiotics medication adjustment physical therapy oncology evaluation continuing care discharge planning Critical Care Note Critical Care Note Critical Care Time: non-applicable
[2017-09-06 02:59] LABS: ABSOLUTE BASOPHIL COUNT 0 /CUMM (0.0-0.2); ABSOLUTE EOSINOPHIL COUNT 0.1 /CUMM (0.0-0.7); ABSOLUTE GRANULOCYTE CT 24.2 /CUMM (1.4-6.5); ABSOLUTE LYMPH COUNT 1.4 /CUMM (1.2-3.4); BASOPHIL % 0.1 % (0.0-2.0); EOSINOPHIL % 0.5 % (0-5); GRANULOCYTE % 90.4 % (42.2-75.2); HEMATOCRIT 33.1 % (42-52); MEAN CORPUSCULAR HGB 27.8 PG (27.0-31.0); MEAN CORPUSCULAR HGB CONC 33.4 G/DL (33.0-37.0); MEAN CORPUSCULAR VOLUME 83.4 FL (80.0-94.0); MEAN PLATELET VOLUME 8.2 FL (7.4-10.4); PLATELET COUNT 250 /CUMM (130-400); RBC DISTRIBUTION WIDTH 20.9 % (11.5-14.5); RED BLOOD CELL CT 3.97 /CUMM (4.70-6.10); WHITE BLOOD CELL COUNT 26.7 /CUMM (4.8-10.8)
--- NOTE | 2017-09-06 03:30 | RADIOLOGY REPORT ---
EXAMINATION: XR PORTABLE CHEST CLINICAL INFORMATION: Fever status post chemotherapy for prostate cancer, productive cough, shortness of breath COMPARISON: 10/13/2016 TECHNIQUE: Portable frontal view of the chest was obtained. FINDINGS: Right IJ port catheter tip lies in the region of the distal SVC. Lung volumes are symmetric. No focal consolidation is seen. There are prominent bibasilar interstitial markings, likely with a component of minimal left basilar atelectasis. No evidence of pneumothorax or significant pleural effusion. The cardiomediastinal contour is unremarkable. No acute osseous findings are seen. IMPRESSION: No focal consolidation. Bibasilar interstitial prominence may reflect airways disease.
--- NOTE | 2017-09-06 05:39 | History & Physical ---
[facility] General Information and HPI MD Statement: I have seen and personally examined GURPREET HOLDER and documented this H&P. The patient is a 72 year old M who presented with a patient stated chief complaint of difficulty breathing]. 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 Patient reports that for the past 1 week he has been having cough with productive white sputum (occasionally anusha) with worsening shortness of breath. He denies any fevers, chills, chest pain, palpitations, abdominal pain, urinary or bowel symptoms. Denies any orthopnea, paroxysmal nocturnal dyspnea, or worsening leg edema. No recent sick contacts or travel. He has history of stage IV adenocarcinoma of prostate with metastasis to bones and lymph nodes. He is currently on chemotherapy with JEVTANA(every 3 weeks). His oncologist is Dr. Parkinson at [facility]. Initially his shortness of breath was thought to be because of cardiotoxicity due to the chemo JEVTANA and he was put on Lasix 40 mg to prevent fluid accumulation in his lungs. However with the worsening creatinine number his Lasix was cut down to 20 mg which led to worsening of her shortness of breath. Now he is back to 40 mg of Lasix. He had a recent Echo and stress test which showed an EF of 62% with mildly dilated ventricle and no wall motion abnormalities. ED vitals significant for temporal 102.3, pulse 97, respiration 20, blood pressure 143/76, saturating 86% on room air, 91% on nasal cannula. Labs significant for a white count of 26.7 with 6 bands, H&H 11/33.1(baseline 12 ), BUN, 33, creatinine 1.4 baseline 0.9), alkaline phosphatase 157, proBNP 1060, UA pending EKG normal sinus rhythm, no new changes. Chest x-ray showed no focal consolidation. Bibasilar intestinal prominence? Airway disease. Allergies/Medications Allergies: Coded Allergies: No Known Allergies (10/12/16) Home Med list Alendronate Sodium (Fosamax) 70 MG TABLET 1 TAB PO QW BONES (Reported) in the morning, at least 30 minutes before the first food, beverage, or medication of the day Every Sunday Amlodipine Besylate 5 MG TABLET 1 TAB PO DAILY BP (Reported) Aspirin (Aspirin*) 81 MG TAB.CHEW 1 TAB PO DAILY HEART (Reported) Finasteride (Proscar) 5 MG TABLET 1 TAB PO DAILY BPH (Reported) Furosemide (Lasix) 40 MG TABLET 1 TAB PO DAILY HEART (Reported) Lisinopril 10 MG TABLET 1 TAB PO DAILY HTN (Reported) Prednisone 10 MG TABLET 1 TAB PO DAILY PROSTRATE CANCER (Reported) Simvastatin (Simvastatin*) 10 MG TABLET 1 TAB PO QPM CHOLESTEROL (Reported) Past History Travel History Traveled to [place] past 21 day No Medical History Neurological: NONE EENT: NONE Cardiovascular: hypertension, hyperlipidemia Respiratory: obstructive sleep apnea (on CPAP) Gastrointestinal: NONE Hepatic: NONE Renal: NONE Musculoskeletal: osteopenia Psychiatric: anxiety Endocrine: obesity Blood Disorders: NONE Cancer(s): prostate cancer DIRECTOR OF COUNTERINTELLIGENCE/Reproductive: NONE History of MRSA: No History of VRE: No History of CDIFF: No Surgical History Surgical History: N Past Family/Social History Family History Relations & Conditions if any FATHER, , Age 60+. Psychosocial History Services at Home: None Primary Language: Arabic ETOH Use: denies use Illicit Drug Use: denies illicit drug use Functional Ability ADLs Independent: dressing, eating, toileting, bathing. Ambulation: independent IADLs Independent: shopping, housework, finances, food prep, telephone, transportation , medication admin. Review of Systems Review of Systems Constitutional: Reports: chills, fever, malaise, weakness. EENTM: Reports: no symptoms. Cardiovascular: Reports: no symptoms. Respiratory: Reports: cough, short of breath, sputum production. GI: Reports: no symptoms. Genitourinary: Reports: no symptoms. Musculoskeletal: Reports: no symptoms. Skin: Reports: no symptoms. Exam & Diagnostic Data Last 24 Hrs of Vital Signs/I&O Vital Signs Date Time Temp Pulse Resp B/P B/P Pulse O2 O2 Flow FiO2 Mean Ox Delivery Rate 09/062 102.1 09/06 0234 91 Nasal 2.0L Cannula 09/06 218 102.3 97 20 143/76 86 Intake & Output 09/06 0800 09/06 0000 09/05 1600 Intake Total 120 Output Total Balance 120 Intake, Oral 120 Patient 127.006 kg Weight Physical Exam General Appearance Alert, Oriented X3, Cooperative, Moderate Distress Skin No Rashes, No Breakdown, right chest wall port clean and intact Skin Temp/Moisture Exam: Warm/Dry Sepsis Skin Exam (color): Normal for Ethnicity HEENT Atraumatic, PERRLA, EOMI, nasal cannula Neck Supple, No JVD Lymphatic Cervical nl Cardiovascular Regular Rate, Normal S1, Normal S2, No Murmurs Lungs bilateral basal rhonchi. Crackles on left base. Abdomen distended, bowel sounds positive. Neurological Normal Speech Extremities 1+ pitting edema bilateral extremities Last 24 Hrs of Labs/Gabe: Laboratory Tests 09/06/17 0230: Anion Gap 15, Estimated GFR 50 L, BUN/Creatinine Ratio 23.6, Glucose 136 H, Calcium 8.0 L, Magnesium 1.7, Total Bilirubin 1.1, AST 24, ALT 26, Alkaline Phosphatase 157 H, Troponin I 0.03, Vgi-H-Apwopoyoxhr Pept 1050 H, Total Protein 6.9, Albumin 3.9, Globulin 3.0, Albumin/Globulin Ratio 1.3, CBC w Diff MAN DIFF ORDERED, RBC 3.97 L, MCV 83.4, MCH 27.8, MCHC 33.4, RDW 20.9 H, MPV 8.2, Gran % 90.4 H, Lymphocytes % 5.2 L, Monocytes % 3.8, Eosinophils % 0.5, Basophils % 0.1, Absolute Granulocytes 24.2 H, Segmented Neutrophils 72, Band Neutrophils 6 H, Absolute Lymphocytes 1.4, Lymphocytes 11 L, Monocytes 10 H, Absolute Monocytes 1.0 H, Absolute Eosinophils 0.1, Absolute Basophils 0, Metamyelocytes 1, Nucleated RBCs 2 H, Platelet Estimate ADEQUATE, Polychromasia 1+, Basophilic Stippling RARE, Anisocytosis 1+, Elliptocytes 1+ Microbiology 09/065 BLOOD: Blood Culture - RECD 09/07 227 BLOOD: Blood Culture - RECD Assessment/Plan Assessment: Patient is a 72-year-old male with pmh of 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 ED vitals significant for temporal 102.3, pulse 97, respiration 20, blood pressure 143/76, saturating 86% on room air, 91% on nasal cannula. Labs significant for a white count of 26.7 with 6 bands, H&H 11/33.1(baseline 12 ), BUN, 33, creatinine 1.4 baseline 0.9), alkaline phosphatase 157, proBNP 1060, UA pending EKG normal sinus rhythm, no new changes. Chest x-ray showed no focal consolidation. Bibasilar intestinal prominence? Airway disease. Assessment * Acute hypoxic respiratory failure due to CAP(no infiltrate seen on CXR) vs PE. Unlikely congestive heart failure given normal recent echo and no vascular congestion on CXR * Stage IV adenocarcinoma of the prostate with bone metastases * Currently on JEVTANA, Lupron, prednisone and X Geva * FLAKO likely secondary to dehydration. * Hypertension, hyperlipidemia * Osteopenia Plan * [facility] Vitals per protocol * Maintain oxygen saturation more than 92% * TRC nebs [id number] * Chest x-ray unimpressive. We will do a CTA to rule out PE and for better visualization of the lung parenchyma. * Pancultures * Gentle hydration with IV normal saline at 75 cc an hour (be cautious not to fluid overload) * Patient received IV ceftazidime and azithromycin in the ED. We will hold off on any antibiotics at this time pending CTA to rule out PE * Acute Kidney injury likely secondary to dehydration. We will hold off on lisinopril at this time. We'll check BEP post hydration. Avoid nephrotoxins. * Will hold off on any Lasix at this time due to kidney injury. He does not appear to be in florid CHF. * Currently patient is on JEVTANA/Lupron. He is scheduled for Jevtana next week. We will appreciate oncology consult. His oncologist is Dr. Parkinson at [facility] * Continue X Geva the alendronate for osteopenia * Continue prednisone 10 mg which patient takes daily along with chemotherapy. * Continue home medications aspirin, statin, Amlodipine. * DVT prophylaxis subcutaneous heparin * DNR PS: CTA negative for PE, Multifocal patchy consolidations in the mid to lower lungs bilaterally, suspicious for pneumonia. Has gone staph coag negative in the past. CT also showed possible metastasis and extensive mediastinal and bilateral hilar lymphadenopathy. We'll continue patient on IV ceftazidime and vancomycin given his immunocompromised status Patient's blood pressure is dropping, he was blood pressure medications. Has already received Flomax in a.m. 500 mL fluid boluses ordered. Please recheck blood pressure in an hour. Patient might require stress dose of steroids. As Ranked By This Provider Problem List: 1. HLD (hyperlipidemia) 2. HTN (hypertension) 3. Adenocarcinoma of prostate, stage 4 4. Shortness of breath Core Measures/Misc (01/21) Acute Coronary Syndrome ACS Diagnosis: No Congestive Heart Failure Congestive Heart Failure Diagnosis No Cerebrovascular Accident CVA/TIA Diagnosis: No VTE (View Protocol) VTE Risk Factors Cancer/chemo/othr therapy No Mechanical VTE Prophylaxis d/t N/A MechProphylax Ordered No VTE Pharm Prophylaxis d/t NA PharmProphylax ordered Sepsis (View protocol) Sepsis Present: No Jah ARGUETA, [facility] 09/06/17 0603: Attending MD Review Statement Attending Statement Attending MD Statement: examined this patient, discuss w/resident/PA/APPRAISAL MANAGER, agreed w/resident/PA/APPRAISAL MANAGER, reviewed images, amended to note Attending Assessment/Plan: 72 yo morbidly obese M has a h/o HTN, TROY on CPAP, castrate resistant, metastatic recurrent prostate cancer s/p immunotherapy (Provenge) and apheresis, c/b Staph line sepsis for which he was admitted to [place] (October 2016), currently on chemo Jevtana Q3 week (last dose was 1 week ago), is here for evaluation of 1 week h/o dyspnea (exertional and at rest) and cough productive of white phlegm. Patient attributes his symptoms to the new chemo medication as it tends to cause ?pulmonary edema and he had been started on lasix. He underwent echo and nuclear stress test cih showed EF 62% and mildly dilated LV. His Oncologist Dr. Ponce and he is on prednisone, lupron Q6 months and Xgeva infusions. Vitals: Tmax 102.3, HR 80-90's, BP 143/76 --> 100/54, sats 86% RA --> 91% on 2L. Exam as above. Port- site looks clean. Labs: WBC 26.7, bands 6, Plt 250, bicarb 21, BUN 33, creat 1.4 (baseline 0.9), glucose 136, CA 8.0, Alk phos 157, troponin neg, proBNP 1050. UA cloudy, WBC 1-3, RBC 5-10, few bacteria. CXR: no focal consolidation, bibasilar interstitial prominence may reflect airways disease. EKG: sinus rhyhm, no acute changes. CTA: no PE, multifocal patchy consolidations in mid to lower lungs bilaterally suspicious for pneumonia, scattered pulmonary nodules, llymphadenopathy, osseous lesions. Assessment and plan: 1. Acute hypoxic respiratory failure 2. Severe sepsis 2/2 multilobar community acquired pneumonia 3. Elevated proBNP but no clear evidence of CHF 4. FLAKO 2/2 dehydration, sepsis and recent chemo 5. Metastatic recurrent prostate cancer - Admit to General medicine - Panculture - TRC nebs - Check urine legionella and strep Ag - IV ceftaz and vanco - If hypotensive then consider stress dose steroids. Continue PO prednisone. - IV fluids - Trend renal functions, check lactic acid - Avoid NSAIDs, hold lasix, lisinopril. - Hold anti-hypertensives due to borderline BP amlodipine, lasix, lisinopril - Oncology consult - Repeat EKG and troponin in AM DVT ppx Hep SC. DNR/I.
[2017-09-06] MEDS ORDERED: AMLODIPINE BESYL5 M1 PO (05:40)
[2017-09-06] MEDS ORDERED: ASPIRIN81 M4 PO (05:40)
[2017-09-06] MEDS ORDERED: LASIX40 M1 PO (05:40)
[2017-09-06] MEDS ORDERED: PROSCAR5 M1 PO (05:41)
[2017-09-06] MEDS ORDERED: PREDNISONE10 M2 PO (05:42)
[2017-09-06 06:00] VITALS: BP 104/56
--- NOTE | 2017-09-06 06:03 | Admission Certification ---
Admission Certification Certification Statement - As attending physician, I certify that at the time of - admission, based on clinical presentation, severity of - symptoms, need for further diagnostic testing and - therapeutic interventions, and risk of adverse outcomes - without in-hospital treatment, in my clinical assessment, - this patient requires an acute hospital stay for a minimum - of two nights or longer. I have also considered psychsocial - factors such as support system, advanced age, financial - issues, cognitive issues, and failed out-patient treatments, - past re-admission history, safety of patient, and lack of - compliance as applicable. Specific rationale supporting this admission is: Acute hypoxic respiratory failure, severe sepsis, community acquired pneumonia.
--- NOTE | 2017-09-06 06:19 | CT SCAN REPORT ---
EXAMINATION: CT ANGIOGRAM OF THE CHEST WITH AND WITHOUT CONTRAST (CT PULMONARY ANGIOGRAM FOR PE) CLINICAL INFORMATION: Presumptive Dx: R/O PE. Signs/Symptoms: SHORTNESS OF BREATH COMPARISON: Chest x-ray from earlier today TECHNIQUE: Prior to contrast administration, noncontrast localization images were obtained. Subsequently, multidetector volumetric imaging was performed from the thoracic inlet to below the diaphragms following the administration of 95 mL Optiray 320 intravenous contrast. No contrast reaction reported. Sagittal, coronal, and MIP oblique sagittal reformatted images were obtained on the CT workstation, uploaded to PACS, and reviewed. Total exam dose-length product 632.67 mGy-cm. FINDINGS: QUALITY OF STUDY/CONTRAST BOLUS: Suboptimal PULMONARY ARTERIES: Assessment is limited due to suboptimal bolus timing. No main pulmonary artery embolus is seen, though evaluation of the lobar, segmental, and subsegmental vessels is incomplete due to lack of adequate opacification. THORACIC AORTA: No aneurysm or dissection. Mild scattered calcification is noted. LUNG: There are multifocal patchy regions of consolidation with mid to lower lung zone predominance. There are also more discrete superimposed pulmonary nodules bilaterally measuring up to approximately 1 cm, raising concern for metastatic disease given the reported history of prostate cancer. PLEURA: No pleural effusion or pneumothorax. MEDIASTINUM: The visualized thyroid gland is unremarkable. There is moderately extensive mediastinal and bilateral hilar lymphadenopathy. Mediastinal adenopathy is seen in the AP window, subcarinal, and paratracheal regions. Right supraclavicular lymphadenopathy is noted. Adenopathy is also seen adjacent to the gastroesophageal junction and aorta near the hiatus. Cardiac size is within normal limits; no pericardial effusion. Coronary artery calcifications are present. No evidence of septal bowing or right heart strain. CHEST WALL/AXILLA: No axillary or internal mammary lymphadenopathy. OSSEOUS STRUCTURES: There are multifocal sclerotic lesions in the bones consistent with metastatic disease. Chronic fracture of the lateral right eighth rib is noted. UPPER ABDOMEN: Unremarkable. No reflux of contrast into the hepatic veins to suggest elevated right heart pressures. IMPRESSION: 1. Limited assessment due to suboptimal bolus timing. No main pulmonary artery embolus is seen, though the remainder of the pulmonary vasculature is not assessed due to inadequate contrast opacification. 2. Multifocal patchy consolidations in the mid to lower lungs bilaterally, suspicious for pneumonia in the proper clinical setting. 3. Multiple scattered discrete pulmonary nodules, concerning for metastatic disease given the reported history of prostate cancer. 4. Extensive mediastinal and bilateral hilar lymphadenopathy, favored to reflect ne metastases. 5. Scattered sclerotic osseous lesions consistent with metastatic disease. VTE: indeterminate
[2017-09-06 06:49] VITALS: BP 104/56
--- NOTE | 2017-09-06 08:01 | Cons- Oncology ---
General Information and HPI Consulting Request Date of Consult: 09/06/17 Requested By: Jah ARGUETA,Thang Reason for Consult: metastatic prostate cancer, pneumonia Source of Information: patient, old records Exam Limitations: no limitations History of Present Illness: Mr. Russell is a 72-year-old male with metastatic prostate cancer to bone, lung, and lymph nodes who is currently on cabazitaxel and prednisone (last on ) who presented with shortness of breath and fatigue. He has been having symptoms for 1 week. He has been having increasing dyspnea, cough with white sputum production, and edema. He has had symptoms similar to this previous. He was thought to have CHF with preserved EF and is on furosemide. He was taking 40 mg but decreased to 20 mg after renal function worsened. He denied any fever or chills. He denies any nausea or vomiting. He has no diarrhea. He has no new pain. On presentation, he was noted to be febrile with temperature of 102.3F. He was tachypneic and tachycardic. Blood pressure was normal. His oxygen saturation was 86% on room air. His improved with nasal cannula oxygen at 2L. CTA of the chest was indeterminate of PE. He did have features concerning for pneumonia. He has been started on vancomycin and ceftazidime. This morning he feels better. Fever has improved. He is still on oxygen. He is still short of breath. He denies any new pain. He has no diarrhea. With regard to his prostate cancer, he is currently being treated by Dr. Justyn Ponce at [facility]. He has progressed through numerous therapy to include Xtandi, Zytiga, Provenge, ketoconazole, and docetaxel. He is currently on cabazitaxel with last treatment on 08/30. He received Neulasta on 08/31. Allergies/Medications Allergies: Coded Allergies: No Known Allergies (10/12/16) Home Med List: Alendronate Sodium (Fosamax) 70 MG TABLET 1 TAB PO QW BONES (Reported) in the morning, at least 30 minutes before the first food, beverage, or medication of the day Every Sunday Amlodipine Besylate 5 MG TABLET 1 TAB PO DAILY BP (Reported) Aspirin (Aspirin*) 81 MG TAB.CHEW 1 TAB PO DAILY HEART (Reported) Finasteride (Proscar) 5 MG TABLET 1 TAB PO DAILY BPH (Reported) Furosemide (Lasix) 40 MG TABLET 1 TAB PO DAILY HEART (Reported) Lisinopril 10 MG TABLET 1 TAB PO DAILY HTN (Reported) Prednisone 10 MG TABLET 1 TAB PO DAILY PROSTRATE CANCER (Reported) Simvastatin (Simvastatin*) 10 MG TABLET 1 TAB PO QPM CHOLESTEROL (Reported) Current Medications: Current Medications Sig/Heath Start time Last Medication Dose Route Stop Time Status Admin Acetaminophen 325 MG Q6P PRN 09/06 0515 AC PO Acetaminophen 0 .STK-MED ONE 09/06 0306 DC PO Acetaminophen 975 MG ONCE ONE 09/06 0245 DC 09/06 PO 09/06 0246 0302 Alendronate Sodium 70 MG QTHURS@0700 09/06 0700 AC 09/06 PO 0656 Amlodipine Besylate 5 MG DAILY 09/06 0900 CAN PO Aspirin 81 MG DAILY 09/06 0900 AC PO Atorvastatin Calcium 10 MG 1700 09/06 1700 AC PO Azithromycin 500 MG ONCE ONE 09/06 0345 DC 09/06 Sodium Chloride 250 ML IV 09/06 0444 0425 Ceftazidime 1,000 MG Q8H 09/06 1230 AC IV Ceftazidime 0 .STK-MED ONE 09/06 0423 DC .ROUTE Ceftazidime 1,000 MG ONCE ONE 09/06 0345 DC 09/06 IV 09/06 0346 0425 Finasteride 5 MG DAILY 09/06 0900 AC PO Heparin Sodium 5,000 UNIT Q8 09/06 0600 AC 09/06 (Porcine) SC 0631 Prednisone 10 MG DAILY 09/06 0900 AC PO Sodium Chloride 500 ML BOLUS ONE 09/06 0700 AC 09/06 IV 09/06 0759 0703 Sodium Chloride 1,000 ML Q13H 09/06 0545 AC / IV 09/06 1844 0632 Sodium Chloride 1,000 ML BOLUS ONE 09/06 0245 DC 09/06 IV 09/06 0344 0258 Vancomycin HCl 2,000 MG Q24H 09/06 0730 AC Sodium Chloride 500 ML IV Review of Systems Review of Systems Constitutional: Reports: fever, weakness. Denies: chills. Cardiovascular: Reports: peripheral edema. Denies: chest pain. Respiratory: Reports: short of breath. GI: Denies: diarrhea. Genitourinary: Denies: dysuria. Musculoskeletal: Reports: back pain. Skin: Denies: rash. Neurological/Psychological: Denies: anxiety, confusion. Hematologic/Endocrine: Denies: bruising, bleeding. 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 Psychosocial History Services at Home: None Primary Language: Yakut Smoking Status: Never Smoked ETOH Use: denies use Illicit Drug Use: denies illicit drug use Functional Ability ADLs Independent: dressing, eating, toileting, bathing. Ambulation: independent IADLs Independent: shopping, housework, finances, food prep, telephone, transportation , medication admin. Exam & Diagnostic Data Vital Signs and I&O Vital Signs Date Time Temp Pulse Resp B/P B/P Pulse O2 O2 Flow FiO2 Mean Ox Delivery Rate 09/06 0649 98.1 78 20 104/56 93 09/06 0615 Nasal 2.0L Cannula 09/06 0530 98.6 09/06 0530 98.6 81 20 100/54 91 Nasal 2.0L Cannula 09/06 0302 102.1 09/06 0234 91 Nasal 2.0L Cannula 09/06 0219 102.3 97 20 143/76 86 Intake & Output 09/06 0800 09/06 0000 09/05 1600 Intake Total 120 Output Total Balance 120 Intake, Oral 120 Patient 127.006 kg Weight Weight Reported by Patient Measurement Method Physical Exam General Appearance: well developed/nourished, no apparent distress, alert, awake , comfortable, obese Head: atraumatic, normal appearance Eyes: Bilateral: PERRL. Ears, Nose, Throat: normal pharynx, NC in place Respiratory: normal breath sounds, chest non-tender, no respiratory distress, decreased breath sounds (bases), crackles (bases) Cardiovascular: tachycardia Gastrointestinal: normal bowel sounds, soft, non-tender Extremities: pedal edema Neurologic/Psych: awake, alert, oriented x 3 Skin: normal color, warm/dry Last 48 Hours of Lab Results: Laboratory Tests 09/06 09/06 0515 0230 Chemistry Sodium (137 - 145 mmol/L) 137 Potassium (3.5 - 5.1 mmol/L) 4.4 Chloride (98 - 107 mmol/L) 101 Carbon Dioxide (22 - 30 mmol/L) 21 L Anion Gap (5 - 16) 15 BUN (9 - 20 mg/dL) 33 H Creatinine (0.7 - 1.2 mg/dL) 1.4 H Estimated GFR (>60 ml/min) 50 L BUN/Creatinine Ratio (7 - 25 %) 23.6 Glucose (65 - 99 mg/dL) 136 H Calcium (8.4 - 10.2 mg/dL) 8.0 L Magnesium (1.6 - 2.3 mg/dL) 1.7 Total Bilirubin (0.2 - 1.3 mg/dL) 1.1 AST (17 - 59 U/L) 24 ALT (21 - 72 U/L) 26 Alkaline Phosphatase (< 127 U/L) 157 H Troponin I (<0.11 ng/ml) 0.03 Iof-U-Iwryffzdmtq Pept (<125 pg/mL) 1050 H Total Protein (6.3 - 8.2 g/dL) 6.9 Albumin (3.5 - 5.0 g/dL) 3.9 Globulin (1.9 - 4.2 gm/dL) 3.0 Albumin/Globulin Ratio (1.1 - 2.2 %) 1.3 Hematology CBC w Diff MAN DIFF ORDERED WBC (4.8 - 10.8 /CUMM) 26.7 H RBC (4.70 - 6.10 /CUMM) 3.97 L Hgb (14.0 - 18.0 G/DL) 11.0 L Hct (42 - 52 %) 33.1 L MCV (80.0 - 94.0 FL) 83.4 MCH (27.0 - 31.0 PG) 27.8 MCHC (33.0 - 37.0 G/DL) 33.4 RDW (11.5 - 14.5 %) 20.9 H Plt Count (130 - 400 /CUMM) 250 MPV (7.4 - 10.4 FL) 8.2 Gran % (42.2 - 75.2 %) 90.4 H Lymphocytes % (20.5 - 51.1 %) 5.2 L Monocytes % (1.7 - 9.3 %) 3.8 Eosinophils % (0 - 5 %) 0.5 Basophils % (0.0 - 2.0 %) 0.1 Absolute Granulocytes (1.4 - 6.5 /CUMM) 24.2 H Segmented Neutrophils (42.2 - 75.2 %) 72 Band Neutrophils (0.0 - 5.0 %) 6 H Absolute Lymphocytes (1.2 - 3.4 /CUMM) 1.4 Lymphocytes (20.5 - 51.1 %) 11 L Monocytes (1.7 - 9.3 %) 10 H Absolute Monocytes (0.10 - 0.60 /CUMM) 1.0 H Absolute Eosinophils (0.0 - 0.7 /CUMM) 0.1 Absolute Basophils (0.0 - 0.2 /CUMM) 0 Metamyelocytes (0.0 - 1.0 %) 1 Nucleated RBCs (0.0 - 0.0 /100WBC) 2 H Platelet Estimate (ADEQUATE) ADEQUATE Polychromasia 1+ Basophilic Stippling RARE Anisocytosis 1+ Elliptocytes 1+ Urines Urinalysis HEAVY H Urine Color (YEL,AMB,STR) YEL Urine Clarity (CLEAR) CLDY H Urine pH (5.0 - 8.0) 5.5 Ur Specific [place] (1.001 - 1.035) >= 1.030 Urine Protein (NEG,<30 MG/DL) 100 H Urine Ketones (NEG) NEG Urine Nitrite (NEG) NEG Urine Bilirubin (NEG) NEG Urine Urobilinogen (0.1 - 1.0 EU/dl) 0.2 Ur Leukocyte Esterase (NEG) NEG Ur Microscopic SEDIMENT EXAMINED Urine RBC (0 - 5 /HPF) 5-10 H Urine WBC (0 - 2 /HPF) 1-3 H Ur Epithelial Cells (NONE,FEW) FEW Urine Bacteria (NEG/NONE) FEW H Granular Casts (NONE /LPF) 3-5 H Urine Mucus (FEW,NONE) FEW Urine Hemoglobin (NEG) MOD H Urine Glucose (N MG/DL) NEG Imaging/Other Studies: CTA chest 09/06/2017: 1. Limited assessment due to suboptimal bolus timing. No main pulmonary artery embolus is seen, though the remainder of the pulmonary vasculature is not assessed due to inadequate contrast opacification. 2. Multifocal patchy consolidations in the mid to lower lungs bilaterally, suspicious for pneumonia in the proper clinical setting. 3. Multiple scattered discrete pulmonary nodules, concerning for metastatic disease given the reported history of prostate cancer. 4. Extensive mediastinal and bilateral hilar lymphadenopathy, favored to reflect ne metastases. 5. Scattered sclerotic osseous lesions consistent with metastatic disease. VTE: indeterminate CTA chest 07/28/2017: No evidence of central or lobar pulmonary embolism. Interval worsening in mediastinal and hilar lymphadenopathy, as well as right pleural effusion. Bilateral hilar adenopathy causing mass effect on the pulmonary arteries and bronchi. New trace left pleural effusion. Interval worsening of parenchymal patchy opacities and pulmonary nodules. Healing fracture right eighth rib, likely pathologic fracture. Sclerotic foci within ribs are suspicious for metastatic disease. Assessment/Plan Assessment: Mr. Russell is a 72-year-old male with metastatic prostate cancer to bone, lung, and lymph nodes who is currently on cabazitaxel and prednisone (last on ) who presented with shortness of breath and fatigue. He has been having symptoms for 1 week. On admission, he was noted to be febrile. His blood work demonstrated WBC of 26,700. Hemoglobin is 11.0 with hematocrit of 33.1. Platelet count is 250,000. BUN and creatinine was 33 and 1.4, respectively. ProBNP was 1, 050. Alkaline phosphatase is elevated at 157. CTA of the chest demonstrated multifocal patchy consolidations in the mid and lower lungs bilaterally. He has multiple pulmonary nodules with extensive mediastinal and bilateral hilar lymphadenopathy. He also had scattered sclerotic osseous lesions. Clinically, he presented with multifocal pneumonia. He is currently on antibiotics with vancomycin and ceftazidime. He feels a little better. He has no new complaints. WBC is likely related to Neulasta received on 08/31/2017 and pneumonia. FLAKO seems to have improved to remaining stable since office visit. He will need to follow up with Dr. Ponce. Recommendations: Pneumonia: -continue supportive care with oxygen as needed -encourage incentive spirometry usage -antibiotics as per primary FLAKO: -continue hydration Metastatic prostate cancer: -follow up with Dr. Ponce as outpatient Problem List: 1. Pneumonia 2. Adenocarcinoma of prostate, stage 4 Other Findings/Comments: Please call [phone] with any questions or concerns. Consult Acknowledgment - Thank you for your consult request.
[2017-09-06 09:39] VITALS: BP 112/80
--- NOTE | 2017-09-06 12:00 | PN- Att Addend ---
Attending Addendum Attending Brief Note Patient seen and examined. Sitting up in bed. Complaining of productive cough and some shortness of breath. He is afebrile. Maintaining saturation on 2 L of oxygen. His blood pressure has been on the lower side. He has required fluid boluses since admission. Vital Signs Date Time Temp Pulse Resp B/P B/P Pulse O2 O2 Flow FiO2 Mean Ox Delivery Rate 09/06 1016 Nasal 2.0L Cannula 09/06 0939 88 112/80 09/06 0649 98.1 78 20 104/56 93 09/06 0615 Nasal 2.0L Cannula 09/06 0600 98.1 78 20 104/56 93 Nasal 2.0L Cannula 09/06 0530 98.6 09/06 0530 98.6 81 20 100/54 91 Nasal 2.0L Cannula 09/06 0302 102.1 09/06 0234 91 Nasal 2.0L Cannula 09/06 0219 102.3 97 20 143/76 86 General appearance: Well-developed and not in any acute distress. HEENT: Anicteric, no pallor, pupils equal and reactive. Neck: Supple with no jugular venous distention. Heart: S1-S2 regular with no audible murmur. Lungs: Adequate and symmetric air entry bilaterally with no added sounds. Abdomen: Nondistended with normal bowel sounds. Soft, nontender with no palpable masses. Extremities: No pedal edema. No cyanosis. Skin: Intact Laboratory Tests 09/06/17 0905: Troponin I 0.02 09/06/17 0515: Urinalysis HEAVY H, Urine Color YEL, Urine Clarity CLDY H, Urine pH 5.5, Ur Specific [place] >= 1.030, Urine Protein 100 H, Urine Ketones NEG, Urine Nitrite NEG, Urine Bilirubin NEG, Urine Urobilinogen 0.2, Ur Leukocyte Esterase NEG, Ur Microscopic SEDIMENT EXAMINED, Urine RBC 5-10 H, Urine WBC 1-3 H, Ur Epithelial Cells FEW, Urine Bacteria FEW H, Granular Casts 3-5 H, Urine Mucus FEW, Urine Hemoglobin MOD H, Urine Glucose NEG 09/06/17 0230: Anion Gap 15, Estimated GFR 50 L, BUN/Creatinine Ratio 23.6, Glucose 136 H, Calcium 8.0 L, Magnesium 1.7, Total Bilirubin 1.1, AST 24, ALT 26, Alkaline Phosphatase 157 H, Troponin I 0.03, Tia-L-Sszayjparis Pept 1050 H, Total Protein 6.9, Albumin 3.9, Globulin 3.0, Albumin/Globulin Ratio 1.3, CBC w Diff MAN DIFF ORDERED, RBC 3.97 L, MCV 83.4, MCH 27.8, MCHC 33.4, RDW 20.9 H, MPV 8.2, Gran % 90.4 H, Lymphocytes % 5.2 L, Monocytes % 3.8, Eosinophils % 0.5, Basophils % 0.1, Absolute Granulocytes 24.2 H, Segmented Neutrophils 72, Band Neutrophils 6 H, Absolute Lymphocytes 1.4, Lymphocytes 11 L, Monocytes 10 H, Absolute Monocytes 1.0 H, Absolute Eosinophils 0.1, Absolute Basophils 0, Metamyelocytes 1, Nucleated RBCs 2 H, Platelet Estimate ADEQUATE, Polychromasia 1+, Basophilic Stippling RARE, Anisocytosis 1+, Elliptocytes 1+ Microbiology 09/06 244 BLOOD: Blood Culture - RECD 09/07 227 BLOOD: Blood Culture - RECD Problems: 1. Acute hypoxic respiratory failure. 2. Community-acquired pneumonia; however is immunocompromised status raises concern for gram-negative pneumonia. 3. Prostate cancer. Plan: -For now continue empiric antibiotic therapy with cefazolin. Blood pressure remained stable and there is no worsening of his respiratory status we may consider de-escalating antibiotic therapy. Discontinue vancomycin after today's dose. -Continue oxygen supplementation and wean down as tolerated. -Leukocytosis likely related to his steroid therapy. Continue this dose. -Continue maintenance IV hydration.
--- NOTE | 2017-09-06 14:27 | Discharge Summary ---
Visit Information Visit Dates Admission Date: 09/06/17 Discharge Date: 09/10/17 Hospital Course Course Attending Physician: Kevin ARGUETA,Demetrius Primary Care Physician: Christina ARGUETA,[facility] Course: 72 yo morbidly obese M has a h/o HTN, TROY on CPAP, castrate resistant, metastatic recurrent prostate cancer s/p immunotherapy (Provenge) and apheresis, c/b Staph line sepsis for which he was admitted to [facility] (October 2016), currently on chemo Jevtana Q3 week (last dose was 1 week ago), is here for evaluation of 1 week h/o dyspnea (exertional and at rest) and cough productive of white phlegm. ED course: Vitals: Temperature 102.3, pulse 97, respiratory rate 20, blood pressure 143/76, oxygen saturation 86% on room air Labs: WBC count 26.7, hemoglobin 11.0, hematocrit 33.1, platelet count 250, sodium 137, potassium 4.4, BUN 33, creatinine 1.4, glucose 136, BUNs/creatinine ratio 23.6, AST 24, ALT 26, alkaline phosphatase 157, troponin 0.03, proBNP 1050 , magnesium 1.7 Sepsis due to community-acquired pneumonia: Patient was admitted with sepsis due to multilobar pneumonia. Blood cultures were obtained in ED. Patient received IV fluid and his lactic acid was trended. Initially patient was started on ceftaz and vancomycin considering his immunocompromised state as he is getting chemotherapy for prostate cancer. Later on vancomycin was discontinued and ceftaz was continued to cover gram- negative bacteria. His blood cultures remain negative. Azithromycin for 5 days was added to cover atypical bacteria. Initially his blood pressure was running in 100s so his antihypertensive medications were discontinued. But later on with IV fluid his blood pressure remained in normal limits and amlodipine was continued. Patient remained afebrile and his blood cultures remained negative. Patient WBC count started decreased although he is chronically on prednisone that can cause his increased WBC count. Later on his IV antibiotics were changed to by mouth. Acute hypoxic respiratory failure due to community-acquired pneumonia: Patient presented with acute hypoxic respiratory failure due to community- acquired pneumonia and desaturated to 86% on room air. Supplemental oxygen was given to keep his oxygen saturation above 92%. Patient was treated with IV ceftaz and vancomycin and later on vancomycin was discontinued and azithromycin was added to the regimen to cover atypical bacteria. Patient was given TRC nebulization and Mucinex. His blood cultures remain negative and he remained afebrile during the hospital stay. Patient was desaturating to low 90s on ambulation so he was kept on 2 L of oxygen. Later on his oxygen was weaned off and he was maintaining saturation of 92% on room air. Patient was discharged on Augmentin for 4 more days to complete 7-10 days course of antibiotics. Patient was instructed to follow his primary care physician within one week. Acute kidney injury: Patient presented with acute kidney injury probably due to dehydration. With IV hydration his creatinine came back to normal. We avoided nephrotoxic medications and NSAIDs. Input and output was monitored. His lisinopril and Lasix was held initially. Has lisinopril was discontinued considering his low blood pressure and he was instructed to follow his drafter engineering or primary care physician to restart it according to his blood pressure at that point. His Lasix dose was changed from 40 mg to 20 considering his low blood pressure. History of obstructive sleep apnea: Continued nighttime CPAP History of hyperlipidemia and hypertension: Initially his blood pressure medications were discontinued as his blood pressure was running a low 100s but later on his blood pressure came back in suitable normal range in 120s and discontinued his amlodipine. Before being discharged his lisinopril was continued after his creatinine came back to normal. History of diastolic congestive heart failure: Last echo showed ejection fraction 62%. Patient has diastolic congestive heart failure. Patient reported that he was started on 40 mg Lasix but by taking 40 mg Lasix his blood pressure was running low in 90s. During hospital stay because of his acute kidney injury Lasix was discontinued but later on he was given 20 mg Lasix. Cardiology consult was obtained and recommendation was followed. Cardiology recommended to continue 20 mg Lasix every day. His aspirin was continued. Later on patient was discharged on 20 mg of Lasix considering his low blood pressure and he was instructed to follow his drafter engineering to adjust the doses of Lasix. History of stage IV prostate cancer: Patient has stage IV prostate cancer and he is getting chemotherapy. We continued his finasteride and prednisone. Patient will follow his oncologist as outpatient to continue his chemotherapies. During hospital stay patient mentioned that he doesn't want to continue chemotherapy because of its side effects. Patient wishes to see palliative care physician as outpatient and he was given referal for palliative care physician. Later on patient spoke to his oncologist and they agreed to try low-dose chemotherapy for stage IV prostate cancer according to the patient. DVT prophylaxis: Mechanical and subcutaneous heparin CODE STATUS: DNR Allergies: Coded Allergies: No Known Allergies (10/12/16) Pertinent Lab Results: Chest x-ray on 09/06/2017: IMPRESSION: No focal consolidation. Bibasilar interstitial prominence may reflect airways disease. Chest CTA on 09/06/2017: IMPRESSION: 1. Limited assessment due to suboptimal bolus timing. No main pulmonary artery embolus is seen, though the remainder of the pulmonary vasculature is not assessed due to inadequate contrast opacification. 2. Multifocal patchy consolidations in the mid to lower lungs bilaterally, suspicious for pneumonia in the proper clinical setting. 3. Multiple scattered discrete pulmonary nodules, concerning for metastatic disease given the reported history of prostate cancer. 4. Extensive mediastinal and bilateral hilar lymphadenopathy, favored to reflect ne metastases. 5. Scattered sclerotic osseous lesions consistent with metastatic disease. VTE: indeterminate WBC count 16.2, hemoglobin 9.7, hematocrit 28.9, platelet count 200, sodium 137, potassium 3.9, BUN 31, creatinine 0.9 Disposition Summary Disposition Principal Diagnosis: Sepsis due to community-acquired pneumonia Acute hypoxic respiratory failure due to community-acquired pneumonia FLAKO Additional Diagnosis: History of hypertension and hyperlipidemia History of stage IV prostate cancer on chemotherapy Discharge Disposition: home or self care Discharge Instructions General Discharge Information Code Status: Do Not Resucitate Patient's Diet: Heart healthy diet Patient's Activity: Self-limited Follow-Up Instructions/Appts: Follow-up with your primary care physician in one week. Follow-up with your collections manager in 1 week. Follow-up with your oncologist in 1 week and continue your chemotherapy. Follow up with your drafter engineering after the discharge and discuss about the lasix dose if it needs to be adjusted. Follow up with Dr. Gandhi, palliative care physician and discuss your concerns about cancer treatment. Medications at Discharge Discharge Medications: Stop taking the following medications: Dutasteride (Avodart) 0.5 MG CAPSULE ORAL DAILY Lisinopril (Lisinopril) 10 MG TABLET ORAL DAILY Continue taking these medications: Simvastatin (Simvastatin*) 10 MG TABLET 1 Tablet ORAL Every night Comments: LAST GIVEN 09/09/17 @ 4702 Alendronate Sodium (Fosamax) 70 MG TABLET 1 Tablet ORAL Once a Week Instructions: in the morning, at least 30 minutes before the first food, beverage, or medication of the day Every Sunday Aspirin (Aspirin*) 81 MG TAB.CHEW 1 Tablet ORAL DAILY Comments: LAST GIVEN 09/10/17 @ 1007 Amlodipine Besylate (Amlodipine Besylate) 5 MG TABLET 1 Tablet ORAL DAILY Comments: LAST GIVEN 09/10/17 @ 1007 Finasteride (Proscar) 5 MG TABLET 1 Tablet ORAL DAILY Comments: LAST GIVEN 09/10/17 @ 1007 Prednisone (Prednisone) 10 MG TABLET 1 Tablet ORAL DAILY Comments: LAST GIVEN 09/10/17 @ 7496 Start taking the following new medications: Amoxicillin/Potassium Clav (Augmentin 875-125 Tablet) 875 MG-125 MG TABLET 1 Tablet ORAL TWICE DAILY Qty = 10 No Refills The following medications have been changed: Old: Furosemide (Lasix) 40 MG TABLET 1 Tablet ORAL DAILY New: Furosemide (Lasix) 20 MG TABLET 1 Tablet ORAL DAILY Qty = 30 Comments: LAST GIVEN 09/10/17 @ 1007 Copies To: Christina ARGUETA,Marcellus; Alhaji ARGUETA,Valdemar Attending Review Statement Documenting Attending: Demetrius Brown MD Other Findings: Medically stable to be discharged home today.
[2017-09-06 14:45] VITALS: BP 124/58
[2017-09-06 22:38] VITALS: BP 122/68
[2017-09-07 06:56] VITALS: BP 124/60
--- NOTE | 2017-09-07 07:04 | PN- Housestaff ---
[facility] 09/07/17 0703: Subjective Follow-up For: Acute hypoxic respiratory failure due to community-acquired pneumonia FLAKO Sepsis (resolved) Subjective: No overnight events. Patient remained afebrile overnight. Seen and examined this morning. Patient denied any chest pain, nausea, vomiting, palpitation, abdominal pain and dysuria. Patient shortness of breath has been improved. Patient having intermittent cough and he is bringing mucus. Although his mucus production has been decreased. Patient is using 2 L of oxygen and maintaining saturation 93%. He is using nighttime CPAP. We will obtain off his oxygen today and check his saturations on ambulation and at rest. His blood cultures are pending. Patient has port in right chest for chemotherapy. Patient reported that with use of Lasix 40 mg that was prescribed by his oncologist his blood pressure used to drop in 90s at home. Review of Systems Constitutional: Denies: chills, fever, weakness. EENTM: Reports: no symptoms. Cardiovascular: Denies: chest pain, palpitations. Respiratory: Reports: cough, short of breath, sputum production. Gastrointestinal: Denies: abdominal pain, constipation, distention, melena, nausea. Genitourinary: Reports: no symptoms. Neurological/Psychological: Reports: no symptoms. Objective Last 24 Hrs of Vital Signs/I&O Vital Signs Date Time Temp Pulse Resp B/P B/P Pulse O2 O2 Flow FiO2 Mean Ox Delivery Rate 09/07 0656 98.0 83 20 124/60 93 09/07 0211 97.8 09/07 0000 CPAP 09/06 2300 90 91 09/06 2238 100.4 91 20 122/68 90 09/06 1445 98.0 87 20 124/58 93 Nasal 2.0L Cannula 09/06 1016 Nasal 2.0L Cannula 09/06 0939 88 112/80 09/06 0800 96 Nasal 2.0L Cannula Intake & Output 09/07 0800 09/07 0000 09/06 1600 Intake Total 600 1500 Output Total 250 725 Balance 350 775 Intake, IV 400 1000 Intake, Oral 200 500 Number 0 Bowel Movements Output, Urine 250 725 Physical Exam General Appearance: Alert, Oriented X3, Cooperative Skin: No Rashes Skin Temp/Moisture Exam: Warm/Dry Sepsis Skin Exam (color): Normal for Ethnicity HEENT: Atraumatic, PERRLA, EOMI Neck: Supple Cardiovascular: Normal S1, Normal S2 Lungs: Clear to Auscultation Abdomen: Soft, No Tenderness Neurological: Normal Speech, Strength at 5/5 X4 Ext, Normal Tone Extremities: grade 1 pedal edema Assessment/Plan Assessment: 72 yo morbidly obese M has a h/o HTN, TROY on CPAP, castrate resistant, metastatic recurrent prostate cancer s/p immunotherapy (Provenge) and apheresis, c/b Staph line sepsis for which he was admitted to [facility] (October 2016), currently on chemo Jevtana Q3 week (last dose was 1 week ago), is here for evaluation of 1 week h/o dyspnea (exertional and at rest) and cough productive of white phlegm. We're following the patient for following problems: Sepsis due to community-acquired pneumonia:(RESOLVED) -Patient had an elevated WBC count 26.7 and fever 102.[address] multilobar pneumonia on CT scan. -Sepsis has been resolved -Blood cultures are pending -As patient was immunocompromised due to chemotherapy so there was risk of gram- negative pneumonia so patient was given ceftaz, pending blood cultures. Acute hypoxic respiratory failure due to community-acquired pneumonia: -Supplemental oxygen as needed to keep his oxygen saturation above 92%. Patient is using 2 L of oxygen and maintaining saturation 93%. -Continue ceftaz pending blood cultures.Day 2 -Azithromycin was added for 5 days to the regimen to cover atypical bacteria. -We will check urine legionella and strep antigen. -TRC nebulization as needed -Incentive spirometry -Mucinex for cough Acute kidney injury:(improving) -Probably due to dehydration -Cr today 1.2 from 1.4 -Avoid nephrotoxic medication -Avoid NSAIDs -Hold lisinopril and Lasix -Monitor input and output -Monitor creatinine and BUN. History of obstructive sleep apnea: -Continue nighttime CPAP History of hyperlipidemia and hypertension: -Continue Lipitor -Continue amlodipine but hold lisinopril. History of diastolic congestive heart failure: -Last echo showed ejection fraction 62% -Continue lasix 20mg daily. -Continue aspirin History of stage IV prostate cancer: -Patient will resume his chemotherapy after the discharge -Continue prednisone -Continue finasteride DVT prophylaxis: Mechanical and subcutaneous heparin CODE STATUS: DNR Problem List: 1. Hypoxia 2. Pneumonia Pain Ratin Pain Location: none Pain Goal: Remain pain free Pain Plan: pain pathway Tomorrow's Labs & Rationales: cbc/bep Kevin ARGUETADemetrius 09/07/17 1356: Attending MD Review Statement Attending Statement Attending MD Statement: examined this patient, discuss w/resident/PA/SECURITY REP, agreed w/resident/PA/SECURITY REP, reviewed EMR data (avail), discussed with nursing, discussed with case mgmt, amended to note Attending Assessment/Plan: Patient seen and examined. Reports feeling slightly better compared to presentation. Reports some reduction in shortness of breath with exertion. Reports inability to sleep in his bed and prefers sleeping in his chair. He however could not clearly articulate whether this was due to improvements with his breathing when sitting up or simply because he was uncomfortable in the bed and with his CPAP machine/nasal cannula. Gives history of ongoing shortness of breath at home require workup by the cardiology service for the stress echo revealed an EF of 62%. She was started on Lasix 60 mg orally daily at home. He reports being mildly hypotensive at home on discharge Lasix regimen. Patient is currently afebrile. He is saturating 91% on 2 L of oxygen. On examination he is not in any acute distress. He has adequate entry bilaterally with no significant added sounds. Abdomen is soft and nontender. He has 2-3+ pitting edema bilaterally. Problems: 1. Acute hypoxic respiratory failure. 2. Pneumonia 3. Bilateral lower extremity edema. 4. Prostate cancer with concern for pulmonary metastasis. Plan: -Due to concern for sepsis patient was started on broad-spectrum antibiotics with vancomycin and ceftazidime. Vancomycin was discontinued yesterday. Recommend checking nasal MRSA screen and urine Legionella. Add azithromycin to his regimen for atypical coverage and additional coverage against Streptococcus. -Wean off oxygen supplementation as tolerated. Patient -Underwent cardiac workup as an outpatient due to complaints of progressive shortness of breath and worsening lower extremity edema. Recommend consultation with the cardiology service. Recommend resuming his Lasix. May start at lower dose and titrate up if blood pressure tolerates. Continue his other antihypertensive medications. Patient is on chronic steroid therapy.-Continue. -Drop in all blood cell lines suggests hemoconcentration on admission. Check stool guaiac to ensure patient is not bleeding.
--- NOTE | 2017-09-07 07:33 | Patient Discharge Instructions ---
Discharge Instructions General Discharge Information You were seen/treated for: Sepsis due to community-acquired pneumonia Acute hypoxic respiratory failure due to community-acquired pneumonia FLAKO Watch for these problems: Shortness of breath, cough, sputum, chest pain, lightheadedness, altered mental status, decreased urine output, fever and chills. If you experience any of these symptoms please come to ED or call to your primary care physician. Special Instructions: Follow-up with your primary care physician in one week. Follow-up with your quality assurance technician in 1 week. Follow-up with your oncologist in 1 week and continue your chemotherapy. Follow up with your parquetry layer after the discharge and discuss about the lasix dose if it needs to be adjusted. Follow up with Dr. Gandhi, palliative care physician and discuss your concerns about cancer treatment. Decresed lasix dose to 20mg from 40mg due to low blood pressure. Holding lisinopril because of low blood pressure ,please talk to your parquetry layer. Diet Recommended Diet: Heart Healthy Activity Activity Self Limited: Yes Acute Coronary Syndrome Inclusion Criteria At DC or during hospital stay patient has or had the following: ACS DIAGNOSIS No Discharge Core Measures Meds if any: Prescribed or Continued at Discharge Meds if any: NOT Prescribed or Continued at Discharge Congestive Heart Failure Inclusion Criteria At DC or during hospital stay patient has or had the following: CHF DIAGNOSIS No Discharge Core Measures Meds if any: Prescribed or Continued at Discharge Meds if any: NOT Prescribed or Continued at Discharge Cerebrovascular accident Inclusion Criteria At DC or during hospital stay patient has or had the following: CVA/TIA Diagnosis No Discharge Core Measures Meds if any: Prescribed or Continued at Discharge Meds if any: NOT Prescribed or Continued at Discharge Venous thromboembolism Inclusion Criteria VTE Diagnosis No VTE Type NONE VTE Confirmed by (Test) NONE Discharge Core Measures - Per Current guidelines, there needs to be overlap - treatment for the first 5 days of Warfarin therapy. - If discharged on Warfarin prior to 5 days of - overlap therapy, the patient will need to be - assessed for post discharge needs including - *Post discharge parental anticoagulation - *Warfarin and/or parental anticoagulation education - *Follow up date to check INR post discharge At least 5 days overlap therapy as Inpatient No Meds if any: Prescribed or Continued at Discharge Note: Overlap Therapy is Warfarin and Anticoagulant Meds if any: NOT Prescribed or Continued at Discharge
[2017-09-07 08:02] LABS: ABSOLUTE BASOPHIL COUNT 0.1 /CUMM (0.0-0.2); ABSOLUTE EOSINOPHIL COUNT 0.1 /CUMM (0.0-0.7); ABSOLUTE GRANULOCYTE CT 18.8 /CUMM (1.4-6.5); ABSOLUTE MONOCYTE COUNT 0.3 /CUMM (0.10-0.60); BASOPHIL % 0.3 % (0.0-2.0); EOSINOPHIL % 0.6 % (0-5); GRANULOCYTE % 92.6 % (42.2-75.2); HEMATOCRIT 29.7 % (42-52); MEAN CORPUSCULAR HGB 27.8 PG (27.0-31.0); MEAN CORPUSCULAR HGB CONC 33.3 G/DL (33.0-37.0); MEAN CORPUSCULAR VOLUME 83.4 FL (80.0-94.0); MEAN PLATELET VOLUME 8.5 FL (7.4-10.4); PLATELET COUNT 195 /CUMM (130-400); RBC DISTRIBUTION WIDTH 20.4 % (11.5-14.5); RED BLOOD CELL CT 3.56 /CUMM (4.70-6.10); WHITE BLOOD CELL COUNT 20.4 /CUMM (4.8-10.8)
--- NOTE | 2017-09-07 08:16 | PN- Oncology ---
Subjective Subjective: He feels a little better this morning. He denies any new pain. His breathing is improving. Review of Systems Constitutional: Reports: fever. Denies: chills. Cardiovascular: Denies: chest pain. Respiratory: Reports: cough, short of breath, sputum production. Gastrointestinal: Denies: abdominal pain. Musculoskeletal: Reports: back pain. Neurological/Psychological: Denies: confusion. Hematologic/Endocrine: Denies: bruising, bleeding. All Other Systems: Reviewed and Negative Objective Vital Signs and I&Os Vital Signs Date Time Temp Pulse Resp B/P B/P Pulse O2 O2 Flow FiO2 Mean Ox Delivery Rate 09/07 0656 98.0 83 20 124/60 93 09/07 0211 97.8 09/07 0000 CPAP 09/06 2300 90 91 09/06 2238 100.4 91 20 122/68 90 09/06 1445 98.0 87 20 124/58 93 Nasal 2.0L Cannula 09/06 1016 Nasal 2.0L Cannula 09/06 0939 88 112/80 Intake & Output 09/07 1600 09/07 0800 09/07 0000 09/06 1600 09/06 0800 09/06 0000 Intake Total 600 1500 120 Output Total 250 725 Balance 350 775 120 Intake, IV 400 1000 Intake, Oral 200 500 120 Number 0 Bowel Movements Output, Urine 250 725 Patient 127.006 kg Weight Weight Reported by Patient Measurement Method Physical Exam: General Appearance: well developed/nourished, no apparent distress, alert, awake , comfortable, obese Head: atraumatic, normal appearance Ears, Nose, Throat: normal pharynx, NC in place Respiratory: normal breath sounds, chest non-tender, no respiratory distress, decreased breath sounds (bases), crackles (bases) Cardiovascular: tachycardia Gastrointestinal: normal bowel sounds, soft, non-tender Extremities: pedal edema Neurologic/Psych: awake, alert, oriented x 3 Skin: normal color, warm/dry Current Medications: Current Medications Sig/Heath Start time Last Medication Dose Route Stop Time Status Admin Acetaminophen 325 MG Q6P PRN 09/06 0515 AC PO Alendronate Sodium 70 MG QTHURS@0700 09/06 0700 AC 09/06 PO 0656 Aspirin 81 MG DAILY 09/06 0900 AC 09/07 PO 0810 Atorvastatin Calcium 10 MG 1700 09/06 1700 AC 09/06 PO 1922 Ceftazidime 1,000 MG Q8H 09/06 1230 AC 09/07 IV 0457 Finasteride 5 MG DAILY 09/06 0900 AC 09/07 PO 0810 Guaifenesin 600 MG Q12P PRN 09/06 0815 AC 09/06 PO 2201 Heparin Sodium 5,000 UNIT Q8 09/06 0600 AC 09/07 (Porcine) SC 0502 Patient Medication 1 ED ONE ONE 09/06 1200 DC 09/06 Teaching ED 09/06 1201 1154 Prednisone 10 MG DAILY 09/06 0900 AC 09/07 PO 0810 Sodium Chloride 1,000 ML Q13H 09/06 0545 DC 09/06 IV 09/07 0444 1922 Vancomycin HCl 2,000 MG Q24H 09/06 0730 DC 09/06 Sodium Chloride 500 ML IV 0808 Results Last 24 Hours of Lab Results: Laboratory Tests 09/07 09/06 0637 0905 Chemistry Sodium Pending Potassium Pending Chloride Pending Carbon Dioxide Pending Anion Gap Pending BUN Pending Creatinine Pending BUN/Creatinine Ratio Pending Troponin I (<0.11 ng/ml) 0.02 Hematology CBC w Diff Pending WBC Pending RBC Pending Hgb Pending Hct Pending MCV Pending MCH Pending MCHC Pending RDW Pending Plt Count Pending MPV Pending Assessment/Plan Assessment/Recommendations: Mr. Russell is a 72-year-old male with metastatic prostate cancer to bone, lung, and lymph nodes who is currently on cabazitaxel and prednisone (last on ) who presented with shortness of breath and fatigue. He has been having symptoms for 1 week. On admission, he was noted to be febrile. His blood work demonstrated WBC of 26,700. Hemoglobin is 11.0 with hematocrit of 33.1. Platelet count is 250,000. BUN and creatinine was 33 and 1.4, respectively. ProBNP was 1, 050. Alkaline phosphatase is elevated at 157. CTA of the chest demonstrated multifocal patchy consolidations in the mid and lower lungs bilaterally. He has multiple pulmonary nodules with extensive mediastinal and bilateral hilar lymphadenopathy. He also had scattered sclerotic osseous lesions. Clinically, he presented with multifocal pneumonia. He is currently on antibiotics with vancomycin and ceftazidime. He continues to feel better. He will need to follow up with Dr. Ponce. Pneumonia: -continue supportive care with oxygen as needed -encourage incentive spirometry usage -antibiotics as per primary Metastatic prostate cancer: -follow up with Dr. Ponce as outpatient Please call [phone] with any questions or concerns. Problem List: 1. Leukocytosis 2. Pneumonia 3. Adenocarcinoma of prostate, stage 4
--- NOTE | 2017-09-07 11:35 | Cons- Cardiology ---
General Information and HPI Consulting Request Date of Consult: 09/07/17 Requested By: Demetrius Brown MD Reason for Consult: chf Source of Information: patient, old records History of Present Illness: This is a 72-year-old male with a past medical history metastatic prostate cancer receiving chemotherapy, hypertension, hyperlipidemia, and recently diagnosed heart failure with preserved ejection fraction who presented to [facility] with chief complaint of productive cough along with worsening shortness of breath; not associated with chest pain or palpitations. He was noted to be febrile on presentation. Denies headache, slurring of speech, syncope, or worsening orthopnea. He recently had an echocardiogram and stress testing which showed a normal ejection fraction and perfusion pattern. Patient feels he is improving here in the hospital. Allergies/Medications Allergies: Coded Allergies: No Known Allergies (10/12/16) Home Med List: Alendronate Sodium (Fosamax) 70 MG TABLET 1 TAB PO QW BONES (Reported) in the morning, at least 30 minutes before the first food, beverage, or medication of the day Every Sunday Amlodipine Besylate 5 MG TABLET 1 TAB PO DAILY BP (Reported) Aspirin (Aspirin*) 81 MG TAB.CHEW 1 TAB PO DAILY HEART (Reported) Finasteride (Proscar) 5 MG TABLET 1 TAB PO DAILY BPH (Reported) Furosemide (Lasix) 40 MG TABLET 1 TAB PO DAILY HEART (Reported) Lisinopril 10 MG TABLET 1 TAB PO DAILY HTN (Reported) Prednisone 10 MG TABLET 1 TAB PO DAILY PROSTRATE CANCER (Reported) Simvastatin (Simvastatin*) 10 MG TABLET 1 TAB PO QPM CHOLESTEROL (Reported) Current Medications: Current Medications Sig/Heath Start time Last Medication Dose Route Stop Time Status Admin Acetaminophen 325 MG Q6P PRN 09/06 0515 AC PO Alendronate Sodium 70 MG QTHURS@0700 09/06 0700 AC 09/06 PO 0656 Amlodipine Besylate 5 MG DAILY 09/07 0900 AC 09/07 PO 1055 Aspirin 81 MG DAILY 09/06 0900 AC 09/07 PO 0810 Atorvastatin Calcium 10 MG 1700 05/ 1700 AC 09/06 PO 1922 Ceftazidime 1,000 MG Q8H / 1230 AC / IV 0457 Finasteride 5 MG DAILY 09/06 0900 AC 09/07 PO 0810 Furosemide 20 MG DAILY 09/07 0926 AC 09/07 PO 1055 Guaifenesin 600 MG Q12P PRN 09/06 0815 AC 09/06 PO 2201 Heparin Sodium 5,000 UNIT Q8 09/06 0600 AC 09/07 (Porcine) SC 0502 Magnesium Oxide 400 MG ONE ONE 09/07 0915 DC 09/07 PO 09/07 0916 1055 Patient Medication 1 ED ONE ONE 09/06 1200 DC 09/06 Teaching ED 09/06 1201 1154 Prednisone 10 MG DAILY 09/06 09 AC 09/07 PO 0810 Sodium Chloride 1,000 ML Q13H 09/06 0545 DC 09/06 IV 09/07 0444 1922 Review of Systems Review of Systems: Review of systems as per HPI. The remainder of a 10 point review of systems was reviewed and was otherwise negative. 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 Psychosocial History Services at Home: None Primary Language: East [place]orese Smoking Status: Never Smoked ETOH Use: denies use Illicit Drug Use: denies illicit drug use Functional Ability ADLs Independent: dressing, eating, toileting, bathing. Ambulation: independent IADLs Independent: shopping, housework, finances, food prep, telephone, transportation , medication admin. Exam & Diagnostic Data Vital Signs and I&O Vital Signs Date Time Temp Pulse Resp B/P B/P Pulse O2 O2 Flow FiO2 Mean Ox Delivery Rate 09/07 1055 84 128/60 09/07 0800 91 Nasal 2.0L Cannula 09/07 0656 98.0 83 20 124/60 93 / 0211 97.8 09/07 0000 CPAP 09/06 2300 90 91 09/06 2238 100.4 91 20 122/68 90 09/06 1445 98.0 87 20 124/58 93 Nasal 2.0L Cannula Intake & Output 09/07 1600 09/07 0800 05/ 0000 09/06 1600 09/06 0800 09/06 0000 Intake Total 601 610 5332 120 Output Total 250 250 725 Balance 490 350 775 120 Intake, IV 349 440 5120 Intake, Oral 240 200 500 120 Number 0 Bowel Movements Output, Urine 250 250 725 Patient 280 lb Weight Weight Reported by Patient Measurement Method Physical Exam: General: no apparent distress. Alert. Eyes: No obvious scleral icterus. HEENT: No jugular venous distention or abnormal jugular venous pulsations. Cardiovascular: Normal intensity S1/S2. 1 out of 6 systolic murmur. Respiratory: No rales or rhonchi Abdomen: Soft, nontender with no guarding or rebound tenderness. Musculoskeletal: No clubbing or cyanosis noted; trace lower extremity edema Skin: warm Neurologic: No gross focal deficits noted. Labs/Gabe Results: Laboratory Tests 09/07 09/06 0637 0905 Chemistry Sodium (137 - 145 mmol/L) 138 Potassium (3.5 - 5.1 mmol/L) 3.9 Chloride (98 - 107 mmol/L) 104 Carbon Dioxide (22 - 30 mmol/L) 21 L Anion Gap (5 - 16) 13 BUN (9 - 20 mg/dL) 32 H Creatinine (0.7 - 1.2 mg/dL) 1.2 Estimated GFR (>60 ml/min) 60 BUN/Creatinine Ratio (7 - 25 %) 26.7 H Troponin I (<0.11 ng/ml) 0.02 Hematology CBC w Diff MAN DIFF ORDERED WBC (4.8 - 10.8 /CUMM) 20.4 H RBC (4.70 - 6.10 /CUMM) 3.56 L Hgb (14.0 - 18.0 G/DL) 9.9 L Hct (42 - 52 %) 29.7 L MCV (80.0 - 94.0 FL) 83.4 MCH (27.0 - 31.0 PG) 27.8 MCHC (33.0 - 37.0 G/DL) 33.3 RDW (11.5 - 14.5 %) 20.4 H Plt Count (130 - 400 /CUMM) 195 MPV (7.4 - 10.4 FL) 8.5 Gran % (42.2 - 75.2 %) 92.6 H Lymphocytes % (20.5 - 51.1 %) 5.2 L Monocytes % (1.7 - 9.3 %) 1.3 L Eosinophils % (0 - 5 %) 0.6 Basophils % (0.0 - 2.0 %) 0.3 Absolute Granulocytes (1.4 - 6.5 /CUMM) 18.8 H Segmented Neutrophils (42.2 - 75.2 %) 86 H Band Neutrophils (0.0 - 5.0 %) 5 Absolute Lymphocytes (1.2 - 3.4 /CUMM) 1.0 L Lymphocytes (20.5 - 51.1 %) 7 L Monocytes (1.7 - 9.3 %) 2 Absolute Monocytes (0.10 - 0.60 /CUMM) 0.3 Absolute Eosinophils (0.0 - 0.7 /CUMM) 0.1 Absolute Basophils (0.0 - 0.2 /CUMM) 0.1 Nucleated RBCs (0.0 - 0.0 /100WBC) 1 H Platelet Estimate (ADEQUATE) VERIFIED BY SMEAR Normocytic RBCs VERIFIED Normochromic RBCs VERIFIED 09/06 09/06 0515 0230 Chemistry Sodium (137 - 145 mmol/L) 137 Potassium (3.5 - 5.1 mmol/L) 4.4 Chloride (98 - 107 mmol/L) 101 Carbon Dioxide (22 - 30 mmol/L) 21 L Anion Gap (5 - 16) 15 BUN (9 - 20 mg/dL) 33 H Creatinine (0.7 - 1.2 mg/dL) 1.4 H Estimated GFR (>60 ml/min) 50 L BUN/Creatinine Ratio (7 - 25 %) 23.6 Glucose (65 - 99 mg/dL) 136 H Calcium (8.4 - 10.2 mg/dL) 8.0 L Magnesium (1.6 - 2.3 mg/dL) 1.7 Total Bilirubin (0.2 - 1.3 mg/dL) 1.1 AST (17 - 59 U/L) 24 ALT (21 - 72 U/L) 26 Alkaline Phosphatase (< 127 U/L) 157 H Troponin I (<0.11 ng/ml) 0.03 [id number] Pept (<125 pg/mL) 1050 H Total Protein (6.3 - 8.2 g/dL) 6.9 Albumin (3.5 - 5.0 g/dL) 3.9 Globulin (1.9 - 4.2 gm/dL) 3.0 Albumin/Globulin Ratio (1.1 - 2.2 %) 1.3 Hematology CBC w Diff MAN DIFF ORDERED WBC (4.8 - 10.8 /CUMM) 26.7 H RBC (4.70 - 6.10 /CUMM) 3.97 L Hgb (14.0 - 18.0 G/DL) 11.0 L Hct (42 - 52 %) 33.1 L MCV (80.0 - 94.0 FL) 83.4 MCH (27.0 - 31.0 PG) 27.8 MCHC (33.0 - 37.0 G/DL) 33.4 RDW (11.5 - 14.5 %) 20.9 H Plt Count (130 - 400 /CUMM) 250 MPV (7.4 - 10.4 FL) 8.2 Gran % (42.2 - 75.2 %) 90.4 H Lymphocytes % (20.5 - 51.1 %) 5.2 L Monocytes % (1.7 - 9.3 %) 3.8 Eosinophils % (0 - 5 %) 0.5 Basophils % (0.0 - 2.0 %) 0.1 Absolute Granulocytes (1.4 - 6.5 /CUMM) 24.2 H Segmented Neutrophils (42.2 - 75.2 %) 72 Band Neutrophils (0.0 - 5.0 %) 6 H Absolute Lymphocytes (1.2 - 3.4 /CUMM) 1.4 Lymphocytes (20.5 - 51.1 %) 11 L Monocytes (1.7 - 9.3 %) 10 H Absolute Monocytes (0.10 - 0.60 /CUMM) 1.0 H Absolute Eosinophils (0.0 - 0.7 /CUMM) 0.1 Absolute Basophils (0.0 - 0.2 /CUMM) 0 Metamyelocytes (0.0 - 1.0 %) 1 Nucleated RBCs (0.0 - 0.0 /100WBC) 2 H Platelet Estimate (ADEQUATE) ADEQUATE Polychromasia 1+ Basophilic Stippling RARE Anisocytosis 1+ Elliptocytes 1+ Urines Urinalysis HEAVY H Urine Color (YEL,AMB,STR) YEL Urine Clarity (CLEAR) CLDY H Urine pH (5.0 - 8.0) 5.5 Ur Specific [place] (1.001 - 1.035) >= 1.030 Urine Protein (NEG,<30 MG/DL) 100 H Urine Ketones (NEG) NEG Urine Nitrite (NEG) NEG Urine Bilirubin (NEG) NEG Urine Urobilinogen (0.1 - 1.0 EU/dl) 0.2 Ur Leukocyte Esterase (NEG) NEG Ur Microscopic SEDIMENT EXAMINED Urine RBC (0 - 5 /HPF) 5-10 H Urine WBC (0 - 2 /HPF) 1-3 H Ur Epithelial Cells (NONE,FEW) FEW Urine Bacteria (NEG/NONE) FEW H Granular Casts (NONE /LPF) 3-5 H Urine Mucus (FEW,NONE) FEW Urine Hemoglobin (NEG) MOD H Urine Glucose (N MG/DL) NEG Diagnostic Data EKG Results Tracing was personally reviewed and shows sinus rhythm with possible LVH CXR Results IMPRESSION: No focal consolidation. Bibasilar interstitial prominence may reflect airways disease. Other Results CTA: 1. Limited assessment due to suboptimal bolus timing. No main pulmonary artery embolus is seen, though the remainder of the pulmonary vasculature is not assessed due to inadequate contrast opacification. 2. Multifocal patchy consolidations in the mid to lower lungs bilaterally, suspicious for pneumonia in the proper clinical setting. 3. Multiple scattered discrete pulmonary nodules, concerning for metastatic disease given the reported history of prostate cancer. 4. Extensive mediastinal and bilateral hilar lymphadenopathy, favored to reflect ne metastases. 5. Scattered sclerotic osseous lesions consistent with metastatic disease. Assessment/Plan Assessment/Plan 1. Pneumonia 2. Recently diagnosed heart failure with preserved ejection fraction 3. Metastatic prostate cancer 4. History of hypertension 5. History of hyperlipidemia 6. Mild aortic stenosis Patient presented with evidence of pneumonia; no evidence of heart failure decompensation but I agree with resuming Lasix at 20 mg p.o. daily to prevent recurrent volume overload. Recent outpatient echocardiogram and nuclear stress test showed a normal ejection fraction with normal perfusion pattern. Antibiotics per the medical team. He should follow-up in our office within 1 week of discharge. Please do not hesitate to call with any further questions or concerns. Farhat Mane MD [facility] Consult Acknowledgment - Thank you for your consult request.
[2017-09-07 15:07] VITALS: BP 120/60
[2017-09-07 21:32] VITALS: BP 110/64
[2017-09-08 05:47] VITALS: BP 128/72
--- NOTE | 2017-09-08 06:42 | PN- Housestaff ---
[facility]: Subjective Follow-up For: Acute hypoxic respiratory failure due to community-acquired pneumonia FLAKO (resloved) Sepsis (resolved) Subjective: No overnight events. Patient remained afebrile, PA-C and examined this morning. He denied any chest pain, nausea, vomiting, chills, fever, abdominal pain dysuria. He reported having dry cough and shortness of breath on exertion. He is using 2 L of oxygen maintaining saturation 93%. Patient reported that he try to walk around yesterday but he couldn't walk more than 20 steps because of short of breath and his saturation was close to 90% while on room air. Patient also reported having orthopnea. Review of Systems Constitutional: Reports: weakness. Denies: chills, fever. EENTM: Reports: no symptoms. Cardiovascular: Reports: orthopena. Denies: chest pain, palpitations. Respiratory: Reports: cough, short of breath. Denies: sputum production, wheezing. Gastrointestinal: Denies: abdominal pain, bloating, constipation, diarrhea, melena, nausea. Genitourinary: Reports: no symptoms. Musculoskeletal: Reports: no symptoms. Neurological/Psychological: Reports: no symptoms. Objective Last 24 Hrs of Vital Signs/I&O Vital Signs Date Time Temp Pulse Resp B/P B/P Pulse O2 O2 Flow FiO2 Mean Ox Delivery Rate 09/08 0547 97.9 76 20 128/72 93 Nasal 2.0L Cannula 09/08 0000 Nasal 2.0L Cannula 09/07 2132 97.8 77 18 110/64 91 09/07 1507 97.8 87 20 120/60 92 Nasal Cannula 09/07 1055 84 128/60 09/07 0800 91 Nasal 2.0L Cannula Intake & Output 09/08 0800 09/08 0000 09/07 1600 Intake Total 510 510 750 Output Total 350 250 500 Balance 160 260 250 Intake, IV 30 30 30 Intake, Oral 480 480 720 Number 0 0 1 Bowel Movements Output, Urine 350 250 500 Physical Exam General Appearance: Alert, Oriented X3, Cooperative Skin: No Rashes Skin Temp/Moisture Exam: Warm/Dry Sepsis Skin Exam (color): Normal for Ethnicity HEENT: Atraumatic, PERRLA, EOMI Neck: Supple Cardiovascular: Normal S1, Normal S2 Lungs: Clear to Auscultation, DECREASED BREATH SOUNDS B/L AT BASES Abdomen: Soft, No Tenderness Neurological: Normal Speech, Strength at 5/5 X4 Ext, Normal Tone Extremities: B/L PEDAL EDEMA GRADE 1 Assessment/Plan Assessment: 72 yo morbidly obese M has a h/o HTN, TROY on CPAP, castrate resistant, metastatic recurrent prostate cancer s/p immunotherapy (Provenge) and apheresis, c/b Staph line sepsis for which he was admitted to [place] (October 2016), currently on chemo Jevtana Q3 week (last dose was 1 week ago), is here for evaluation of 1 week h/o dyspnea (exertional and at rest) and cough productive of white phlegm. We're following the patient for following problems: Sepsis due to community-acquired pneumonia:(RESOLVED) -Patient had an elevated WBC count 26.7 and fever 102.[address] pneumonia on CT scan. -Sepsis has been resolved -Blood cultures are negative so far. -As patient was immunocompromised due to chemotherapy so there was risk of gram- negative pneumonia so patient was given ceftaz. Acute hypoxic respiratory failure due to community-acquired pneumonia: -Supplemental oxygen as needed to keep his oxygen saturation above 92%. Patient is using 2 L of oxygen and maintaining saturation 93%. -Continue ceftaz. Day 3 -Continue azithromycin for 5 days to cover atypical pneumonia. day 2 -Urine strep and Legionella antigens are negative. -TRC nebulization as needed -Incentive spirometry -Mucinex for cough Acute kidney injury:(improving) -Probably due to dehydration -Avoid nephrotoxic medication -Avoid NSAIDs -Hold lisinopril. -Monitor input and output -Monitor creatinine and BUN. History of obstructive sleep apnea: -Continue nighttime CPAP History of hyperlipidemia and hypertension: -Continue Lipitor -Continue amlodipine but hold lisinopril. History of diastolic congestive heart failure: -Last echo showed ejection fraction 62% -Continue lasix 20mg daily. -Continue aspirin History of stage IV prostate cancer: -Patient will resume his chemotherapy after the discharge -Continue prednisone -Continue finasteride DVT prophylaxis: Mechanical and subcutaneous heparin CODE STATUS: DNR Problem List: 1. Hypoxia 2. Pneumonia Pain Ratin Pain Location: none Pain Goal: Remain pain free Pain Plan: pain pathway Tomorrow's Labs & Rationales: cbc Alexandrea ARGUETA,[place] 09/08/17 1052: Attending MD Review Statement Attending Statement Attending MD Statement: examined this patient, discuss w/resident/PA/SENIOR TELECOMMUNICATIONS ENGINEER, agreed w/resident/PA/SENIOR TELECOMMUNICATIONS ENGINEER, reviewed EMR data (avail), discussed with nursing, reviewed images Attending Assessment/Plan: A 72-year-old male with past medical history of hypertension, hyperlipidemia, chronic diastolic heart failure and mild on Lasix, metastatic prostate CA with known bony metastases and a CTA showing likely lung and lymph node metastases as well. He is here with acute hypoxemic respiratory failure as evidenced by a pulse ox of 86% on room air, 86-88% on ambulation and 92% on 2 L with multi lobar pneumonia. Because of his immunosuppressed state on chronic prednisone and metastatic prostate CA he is getting ceftaz for a gram-negative pneumonia and Azithro to cover for atypical coverage. His white count is coming down from 26 to 19,000 although it's hard to interpret in the setting of chronic steroids. His lisinopril remains on hold because of the Flako on admission which is nicely resolving. His Lasix has been restarted at 20 mg a day and will continue to follow closely.
[2017-09-08 08:18] LABS: ABSOLUTE BASOPHIL COUNT 0 /CUMM (0.0-0.2); ABSOLUTE EOSINOPHIL COUNT 0.2 /CUMM (0.0-0.7); ABSOLUTE GRANULOCYTE CT 17.7 /CUMM (1.4-6.5); ABSOLUTE MONOCYTE COUNT 0.4 /CUMM (0.10-0.60); BASOPHIL % 0 % (0.0-2.0); EOSINOPHIL % 1.2 % (0-5); HEMATOCRIT 28.9 % (42-52); MEAN CORPUSCULAR HGB CONC 33.5 G/DL (33.0-37.0); MEAN CORPUSCULAR VOLUME 83.6 FL (80.0-94.0); MEAN PLATELET VOLUME 8.3 FL (7.4-10.4); PLATELET COUNT 190 /CUMM (130-400); RBC DISTRIBUTION WIDTH 20.3 % (11.5-14.5); RED BLOOD CELL CT 3.46 /CUMM (4.70-6.10); WHITE BLOOD CELL COUNT 19.3 /CUMM (4.8-10.8)
[2017-09-08 09:42] LABS: GRANULOCYTE % 91.5 % (42.2-75.2)
[2017-09-08 13:48] VITALS: BP 128/56
[2017-09-08 22:14] VITALS: BP 118/60
--- NOTE | 2017-09-09 07:01 | PN- Housestaff ---
[facility]01[facility] Subjective Follow-up For: Acute hypoxic respiratory failure due to community-acquired pneumonia Subjective: No overnight events. Patient remained afebrile. Seen and examined this morning. He is using 2 L of oxygen and maintaining saturation 95% is using nighttime CPAP. Patient denied any chest pain, nausea, vomiting, chills, fever, abdominal pain dysuria. He reported having exertional dyspnea that has pain improved. Patient having intermittent cough and sometimes he brings mucus. Patient walked around yesterday with 2 L of oxygen and he was maintaining oxygen saturation above 92%. Patient wishes to see palliative care physician as outpatient and they will give him referal. Patient doesn't want to continue chemotherapy for prostate cancer because of the side effects. He reported that after chemotherapy he is feeling more weak. Review of Systems Constitutional: Denies: chills, fever, malaise. EENTM: Reports: no symptoms. Cardiovascular: Denies: chest pain, orthopena, palpitations. Respiratory: Reports: cough, short of breath. Denies: sputum production. Gastrointestinal: Denies: abdominal pain, constipation, diarrhea, melena, nausea. Genitourinary: Reports: no symptoms. Neurological/Psychological: Reports: no symptoms. Objective Last 24 Hrs of Vital Signs/I&O Vital Signs Date Time Temp Pulse Resp B/P B/P Pulse O2 O2 Flow FiO2 Mean Ox Delivery Rate 09/09 0702 97.7 83 20 105/60 92 Room Air / 0000 94 Nasal 2.0L Cannula 09/08 2214 98.1 82 19 118/60 95 Nasal 3.0L Cannula 09/08 1600 Nasal 2.0L Cannula 09/08 1348 97.8 87 17 128/56 92 Nasal 3.0L Cannula 09/08 0815 76 128/72 09/08 0800 93 Nasal 2.0L Cannula Intake & Output 09/09 0800 05/06 0000 05/05 1600 Intake Total 604 652 2081 Output Total Balance 983 415 8369 Intake, IV 280 40 Intake, Oral 223 037 9633 Number 0 Bowel Movements Physical Exam General Appearance: Alert, Oriented X3, Cooperative Skin: No Rashes Skin Temp/Moisture Exam: Warm/Dry Sepsis Skin Exam (color): Normal for Ethnicity HEENT: Atraumatic, PERRLA, EOMI Neck: Supple Cardiovascular: Normal S1, Normal S2 Lungs: Clear to Auscultation Abdomen: Soft, No Tenderness Neurological: Normal Speech, Strength at 5/5 X4 Ext, Normal Tone Extremities: b/l pedal edema grade 1 Assessment/Plan Assessment: 72 yo morbidly obese M has a h/o HTN, TROY on CPAP, castrate resistant, metastatic recurrent prostate cancer s/p immunotherapy (Provenge) and apheresis, c/b Staph line sepsis for which he was admitted to [place] (October 2016), currently on chemo Jevtana Q3 week (last dose was 1 week ago), is here for evaluation of 1 week h/o dyspnea (exertional and at rest) and cough productive of white phlegm. We are following the patient for following problems: Sepsis due to community-acquired pneumonia:(RESOLVED) -Sepsis has been resolved -Blood cultures are negative so far. -As patient was immunocompromised due to chemotherapy so there was risk of gram- negative pneumonia so patient was given ceftaz. Azithromycin saline has been added to cover atypical bacteria. Acute hypoxic respiratory failure due to community-acquired pneumonia: -Patient is using 2 L of oxygen and maintaining saturation 95%. He is using nighttime CPAP. -Continue ceftaz. Day 4 -Continue azithromycin for 5 days to cover atypical pneumonia. day 3 -Urine strep and Legionella antigens are negative. -TRC nebulization as needed -Continue incentive spirometry -Continue Mucinex -Patient is feeling much improved. We will check ambulatory sats today without O2. Acute kidney injury:(improving) -Probably due to dehydration -Avoid nephrotoxic medication -Avoid NSAIDs -Holding lisinopril. History of obstructive sleep apnea: -Continue nighttime CPAP History of hyperlipidemia and hypertension: -Continue Lipitor -Continue amlodipine but hold lisinopril. History of diastolic congestive heart failure: -Last echo showed ejection fraction 62% -Continue lasix 20mg daily. -Continue aspirin History of stage IV prostate cancer: -Patient will resume his chemotherapy after the discharge. -Continue prednisone -Continue finasteride -Patient wishes to see palliative care physician as outpatient. DVT prophylaxis: Mechanical and subcutaneous heparin CODE STATUS: DNR Problem List: 1. Hypoxia 2. Pneumonia Pain Ratin Pain Location: none Pain Goal: Remain pain free Pain Plan: pain pathway Tomorrow's Labs & Rationales: watson Lechuga MD,[place] 09/09/17 1130: Attending MD Review Statement Attending Statement Attending MD Statement: examined this patient, discuss w/resident/PA/LABORER STEEL HANDLING, agreed w/resident/PA/LABORER STEEL HANDLING, reviewed EMR data (avail), discussed with nursing, reviewed images Attending Assessment/Plan: Overall patient appears to be doing better. He continues on ceftaz and azithro for pneumonia in the setting of metastatic prostate CA with documented bony metastases and lung and lymph node metastases. He is on chronic steroid therapy. He wants to talk to the oncologist in the morning as he is unsure whether he is going to continue anymore chemotherapy for prostate CA. He feels like the side effects of the chemotherapy may outweigh benefits. He has acute hypoxemic respiratory failure secondary to the pneumonia and the titrating the oxygen slowly.
[2017-09-09 07:02] VITALS: BP 105/60
[2017-09-09 08:49] LABS: ABSOLUTE BASOPHIL COUNT 0 /CUMM (0.0-0.2); ABSOLUTE EOSINOPHIL COUNT 0.2 /CUMM (0.0-0.7); ABSOLUTE GRANULOCYTE CT 14.7 /CUMM (1.4-6.5); ABSOLUTE MONOCYTE COUNT 0.3 /CUMM (0.10-0.60); BASOPHIL % 0.1 % (0.0-2.0); HEMATOCRIT 28.1 % (42-52); MEAN CORPUSCULAR HGB 28.2 PG (27.0-31.0); MEAN CORPUSCULAR VOLUME 82.9 FL (80.0-94.0); MEAN PLATELET VOLUME 8.3 FL (7.4-10.4); PLATELET COUNT 194 /CUMM (130-400); RBC DISTRIBUTION WIDTH 20.8 % (11.5-14.5); RED BLOOD CELL CT 3.39 /CUMM (4.70-6.10); WHITE BLOOD CELL COUNT 16.2 /CUMM (4.8-10.8)
[2017-09-09 09:31] LABS: GRANULOCYTE % 90.6 % (42.2-75.2)
[2017-09-09 14:29] VITALS: BP 118/62
[2017-09-09 21:28] VITALS: BP 134/72
[2017-09-10 05:49] VITALS: BP 118/64
--- NOTE | 2017-09-10 07:03 | PN- Housestaff ---
[facility]: Subjective Follow-up For: Acute hypoxic respiratory failure due to community-acquired pneumonia Subjective: No over night event. patient remained afibrile. Denied chest pain, nausea, vomiting, short of breath, chills, fever, abdominal pain dysuria. Patient reported having intermittent dry cough. He is on room air and maintaining saturation 93%. Review of Systems Constitutional: Denies: chills, fever. EENTM: Reports: no symptoms. Cardiovascular: Denies: chest pain, palpitations. Respiratory: Reports: cough. Denies: short of breath, sputum production. Gastrointestinal: Denies: abdominal pain, diarrhea, melena, nausea. Genitourinary: Reports: no symptoms. Neurological/Psychological: Reports: no symptoms. Objective Last 24 Hrs of Vital Signs/I&O Vital Signs Date Time Temp Pulse Resp B/P B/P Pulse O2 O2 Flow FiO2 Mean Ox Delivery Rate 09/10 0549 98.0 81 24 118/64 93 Room Air 09/10 0020 82 96 09/10 0000 CPAP 09/09 2128 98.2 84 19 134/72 92 Room Air 09/09 2059 78 93 09/09 1600 90 Room Air Room Air 09/09 1429 97.6 85 18 118/62 91 Room Air Intake & Output 09/10 1600 09/10 0800 09/10 0000 Intake Total 520 270 Output Total Balance 520 270 Intake, IV 40 30 Intake, Oral 480 240 Number 1 1 Bowel Movements Physical Exam General Appearance: Alert, Oriented X3, Cooperative Skin Temp/Moisture Exam: Warm/Dry Sepsis Skin Exam (color): Normal for Ethnicity HEENT: Atraumatic, PERRLA, EOMI Neck: Supple Cardiovascular: Normal S1, Normal S2 Lungs: Clear to Auscultation Abdomen: Soft, No Tenderness Neurological: Normal Speech, Strength at 5/5 X4 Ext, Normal Tone Extremities: No Edema Assessment/Plan Assessment: 72 yo morbidly obese M has a h/o HTN, TROY on CPAP, castrate resistant, metastatic recurrent prostate cancer s/p immunotherapy (Provenge) and apheresis, c/b Staph line sepsis for which he was admitted to [facility] (October 2016), currently on chemo Jevtana Q3 week (last dose was 1 week ago), is here for evaluation of 1 week h/o dyspnea (exertional and at rest) and cough productive of white phlegm. We are following the patient for following problems: Sepsis due to community-acquired pneumonia:(RESOLVED) -Sepsis has been resolved -Blood cultures are negative so far. -As patient was immunocompromised due to chemotherapy so there was risk of gram- negative pneumonia so patient was given ceftaz. Azithromycin saline has been added to cover atypical bacteria. Acute hypoxic respiratory failure due to community-acquired pneumonia: -Patient is on room air and maintaining saturation 93%. He is using nighttime CPAP. -Continue ceftaz. Day 5 -Continue azithromycin for 5 days to cover atypical pneumonia. day 4 -Urine strep and Legionella antigens are negative. -TRC nebulization as needed -Continue incentive spirometry -Continue Mucinex -Patient is feeling much improved. possible discharge today. We will discharge the patient on Augmentin for 4 more days to complete 7-10 days course of antibiotics. Acute kidney injury:(resolved) -Probably due to dehydration -Avoid nephrotoxic medication -Avoid NSAIDs -Holding lisinopril. History of obstructive sleep apnea: -Continue nighttime CPAP History of hyperlipidemia and hypertension: -Continue Lipitor -Continue amlodipine but hold lisinopril. History of diastolic congestive heart failure: -Last echo showed ejection fraction 62% -Continue lasix 20mg daily. -Continue aspirin History of stage IV prostate cancer: -Patient will resume his chemotherapy after the discharge. -Continue prednisone -Continue finasteride -Patient wishes to see palliative care physician as outpatient. DVT prophylaxis: Mechanical and subcutaneous heparin CODE STATUS: DNR Problem List: 1. Hypoxia 2. Pneumonia Pain Ratin Pain Location: none Pain Goal: Remain pain free Pain Plan: pain pathway Tomorrow's Labs & Rationales: none Demetrius Brown MD 09/10/17 1218: Attending MD Review Statement Attending Statement Attending MD Statement: examined this patient, discuss w/resident/PA/FUEL CELL TECHNICIAN, agreed w/resident/PA/FUEL CELL TECHNICIAN, reviewed EMR data (avail), discussed with nursing, discussed with case mgmt, amended to note Attending Assessment/Plan: Patient reports feeling much better this morning. He is off oxygen supplementation at rest and with ambulation. He is afebrile and hemodynamically stable. He is eager to go home today. Given his significant improvements, he has reconsidered stopping chemotherapy and has discussed this with his oncologist. Apparently plans are being made to reduce the dose of his chemotherapy once he resumes. Blood pressure has been stable here on amlodipine and a lower dose of Lasix. He will be discharged on this regimen. We will continue to hold his lisinopril as his blood pressure for now. This may resume in the outpatient setting by his primary care provider or power line installer and repairer should his blood pressure improved further. Patient has been made aware of this.
[2017-09-10] MEDS ORDERED: AUGMENTIN 875-1 EACH PO ×2 (08:52→08:56)
[2017-09-10 08:54] LABS: ABSOLUTE BASOPHIL COUNT 0 /CUMM (0.0-0.2); ABSOLUTE EOSINOPHIL COUNT 0.1 /CUMM (0.0-0.7); ABSOLUTE GRANULOCYTE CT 14.5 /CUMM (1.4-6.5); ABSOLUTE LYMPH COUNT 1.2 /CUMM (1.2-3.4); ABSOLUTE MONOCYTE COUNT 0.3 /CUMM (0.10-0.60); BASOPHIL % 0 % (0.0-2.0); EOSINOPHIL % 0.9 % (0-5); HEMATOCRIT 28.9 % (42-52); MEAN CORPUSCULAR HGB 27.9 PG (27.0-31.0); MEAN CORPUSCULAR HGB CONC 33.6 G/DL (33.0-37.0); MEAN CORPUSCULAR VOLUME 83.1 FL (80.0-94.0); MEAN PLATELET VOLUME 8.5 FL (7.4-10.4); PLATELET COUNT 200 /CUMM (130-400); RBC DISTRIBUTION WIDTH 20.2 % (11.5-14.5); RED BLOOD CELL CT 3.48 /CUMM (4.70-6.10); WHITE BLOOD CELL COUNT 16.2 /CUMM (4.8-10.8)
[2017-09-10] MEDS ORDERED: LASIX20 M1 PO (08:55)
[2017-09-10 10:02] LABS: GRANULOCYTE % 89.8 % (42.2-75.2)
[2017-09-10 10:07] VITALS: BP 134/88
--- NOTE | 2017-09-10 10:17 | PN- Cardiology ---
Subjective Subjective: The patient is awake, alert The events of the last 24 hours as well as telemetry were reviewed. Review of Systems: The review of systems is negative for chest pains, palpitations nor lightheadedness. The remainder of the 14 point review of systems is noncontributory with the exception of above. Objective Vital Signs and I&Os Vital Signs Date Time Temp Pulse Resp B/P B/P Pulse O2 O2 Flow FiO2 Mean Ox Delivery Rate 09/10 1007 76 134/88 09/10 0549 98.0 81 24 118/64 93 Room Air 09/10 0020 82 96 / 0000 CPAP 09/09 2128 98.2 84 19 134/72 92 Room Air 09/09 2059 78 93 09/09 1600 90 Room Air Room Air 09/09 1429 97.6 85 18 118/62 91 Room Air Intake & Output 09/10 1600 09/10 0800 09/10 0000 09/09 1600 09/09 0800 09/09 0000 Intake Total 950 555 9274 600 520 Output Total Balance 514 935 2821 600 520 Intake, IV 40 30 40 280 Intake, Oral 782 025 0582 600 240 Number 1 1 0 Bowel Movements Physical Exam: General: Nontoxic, no apparent distress. HEENT: Sclera and conjunctiva within normal limits, without xanthelasmas. Neck: Carotids 2+ without bruits. Respiratory: Clear to auscultation, air movement is good, without accessory respiratory muscle use. Heart: Regular rate and rhythm, without murmurs, without JVD. Abdomen: Soft, nontender, no masses, normoactive bowel sounds. Extremities: Without clubbing, cyanosis, without edema. Neuro: Nonfocal exam, strength, 5 out of 5 Skin: Within normal limits without lesions. Psych: Mood and affect: Normal Current Medications: Current Medications Sig/Heath Start time Last Medication Dose Route Stop Time Status Admin Acetaminophen 325 MG Q6P PRN 09/06 0515 AC PO Alendronate Sodium 70 MG QTHURS@09/06 07 AC 09/06 PO 0656 Amlodipine Besylate 5 MG DAILY 09/07 09 AC 09/10 PO 1007 Aspirin 81 MG DAILY 09/06 899 AC 09/10 PO 1007 Atorvastatin Calcium 10 MG 1700 09/06 1700 AC 05 PO 1736 Azithromycin 500 MG 1800 09/08 1800 AC 05/06 Sodium Chloride 250 ML IV 1737 Ceftazidime 1,000 MG Q8H 09/06 1230 AC 09/10 IV 0439 Finasteride 5 MG DAILY 09/06 0900 AC 09/10 PO 1005 Furosemide 20 MG DAILY 09/07 0926 AC 09/10 PO 1007 Guaifenesin 600 MG Q12P PRN 09/06 0815 AC 09/08 PO 2024 Heparin Sodium 5,000 UNIT Q8 09/06 0600 AC 09/10 (Porcine) SC 0439 Prednisone 10 MG DAILY 09/06 0900 AC 09/10 PO 1005 Assessment/Plan Assessment/Plan 1. Pneumonia 2. Recently diagnosed heart failure with preserved ejection fraction 3. Metastatic prostate cancer 4. History of hypertension 5. History of hyperlipidemia 6. Mild aortic stenosis The patient presented with dyspnea secondary to underlying pneumonia, with noted significant hypoxia. He is currently overall improved and is stable from a cardiac standpoint. We may discharge him to home with further outpatient cardiac follow-up in approximately one week. Continue telemetry? No
[2017-11-08] MEDS ORDERED: XARELTO15 M2 PO (07:52)
[2017-11-08] MEDS ORDERED: POTASSIUM CHLO20 ME2 PO (07:53)
[2017-11-08] MEDS ORDERED: FUROSEMIDE40 M1 PO (07:53)
[2017-11-08] MEDS ORDERED: ELIGARD22.5 M1 SC (07:54)
[2017-11-08] MEDS ORDERED: XGEVA120 MG/1.1 SC (07:55)
[2017-11-08] MEDS ORDERED: DEXAMETHASONE4 M1 PO (07:55)
[2017-11-08] MEDS ORDERED: BENADRYL25 MG PO (07:56)
[2017-11-08] MEDS ORDERED: AUGMENTIN 500-1 EACH PO (10:15)
[2017-11-08] MEDS ORDERED: OXYGEN INH (10:15)
[2017-11-09] MEDS ORDERED: OXYGEN NS (11:53)
[2018-01-10] MEDS ORDERED: LEVAQUIN750 M1 PO (14:21)
[2018-01-18] MEDS ORDERED: LACTULOSE20 GM/30 M PO (02:17)
[2018-01-18] MEDS ORDERED: SENNA8.6 M3 PO (02:17)
[2018-01-18] MEDS ORDERED: MIRALAX17 G1 PO (02:18)
[2018-01-18] MEDS ORDERED: OXYCODONE HCL5 M1 PO (02:22)
== END 2017-09-10 12:30 | DRG 871 ==
LOC: ERH 02:11 → 2NB 03:33 → ERHI 03:33 → ENRESERV 04:51 → 2NB 05:31 → ENPENDDIS 09-10 09:14 → ENTRNSPT 09-10 12:23 → 2NB 09-10 12:30 → EDTRNSPT 09-10 12:32 → EDTRNSPTSTS 09-10 12:32 → CMPTRNSPT 09-10 12:56
PROVIDERS: Emergency Medicine; Student in an Organized Health Care Education/Training Program
DX: A41.9 Sepsis, unspecified organism (principal); J15.6 Pneumonia due to other Gram-negative bacteria; J96.01 Acute respiratory failure with hypoxia; N17.9 Acute kidney failure, unspecified; C79.51 Secondary malignant neoplasm of bone; I11.0 Hypertensive heart disease with heart failure; J18.9 Pneumonia, unspecified organism; E86.0 Dehydration; E66.01 Morbid (severe) obesity due to excess calories; I50.32 Chronic diastolic (congestive) heart failure; C61 Malignant neoplasm of prostate; Z68.39 Body mass index [BMI] 39.0-39.9, adult; Z92.21 Personal history of antineoplastic chemotherapy; Z79.52 Long term (current) use of systemic steroids; E78.5 Hyperlipidemia, unspecified; F41.9 Anxiety disorder, unspecified; Z66 Do not resuscitate
CPT/HCPCS: 2NBP; 36415; 36592; 71045; 81001; 82436; 87040; 87070; 87449; 87450; 93005; 93010; J0456; J0713; J1644; J3370; J3490; J7040; J7512

== ENCOUNTER 2018-01-12 00:06 | Inpatient (IN) | payer OTHER ==
[~2018-01-12] VITALS: Ht 180.3 cm; Wt 117.9 kg
[~2018-01-12 00:06] MED LIST changes: +AMLODIPINE BESYL5 M1 PO; +ASPIRIN81 M4 PO; +AUGMENTIN 500-1 EACH PO; +AUGMENTIN 875-1 EACH PO; +BENADRYL25 MG PO; +DEXAMETHASONE4 M1 PO; +ELIGARD22.5 M1 SC; +FUROSEMIDE40 M1 PO; +LASIX20 M1 PO; +LASIX40 M1 PO; +LEVAQUIN750 M1 PO; +OXYGEN INH; +OXYGEN NS; +POTASSIUM CHLO20 ME2 PO; +PREDNISONE10 M2 PO; +PROSCAR5 M1 PO; +XARELTO15 M2 PO; +XGEVA120 MG/1.1 SC
--- NOTE | 2018-01-12 00:32 | ED DYSPNEA/ASTHMA COMPLAINT ---
History of Present Illness General Chief Complaint: General Adult Stated Complaint: SEEN YESTERDAY C/O,"TIRED,PNEUMONIA" Source: patient Exam Limitations: no limitations Vital Signs & Intake/Output Vital Signs & Intake/Output Vital Signs Date Time Temp Pulse Resp B/P B/P Pulse O2 O2 Flow FiO2 Mean Ox Delivery Rate 01/12 229 94 18 113/56 95 Nasal 3.0L Cannula 01/12 222 Nasal 2.0L Cannula 01/12 011 89 01/12 0026 99.0 92 20 106/67 92 Room Air Allergies Coded Allergies: No Known Allergies (10/12/16) Reconcile Medications Alendronate Sodium (Fosamax) 70 MG TABLET 1 TAB PO QW BONES (Reported) in the morning, at least 30 minutes before the first food, beverage, or medication of the day Every Sunday Amlodipine Besylate 5 MG TABLET 1 TAB PO DAILY BP (Reported) Denosumab (Xgeva) 120 MG/1.7 ML (70 MG/ML) VIAL 1 INJ SC Q30D UNKNOWN ( Reported) Finasteride (Proscar) 5 MG TABLET 1 TAB PO DAILY BPH (Reported) Furosemide 40 MG TABLET 1 TAB PO DAILY WATER RETENTION (Reported) Leuprolide Acetate (Eligard) 22.5 MG (3 MONTH) SYRINGE UNKNOWN (Reported) Levofloxacin (Levaquin) 750 MG TABLET 1 TAB PO DAILY ANTIBIOTIC, INFECTION ( Reported) Rivaroxaban (Xarelto) 15 MG TABLET 1 TAB PO BID BLOOD CLOTS (Reported) Simvastatin (Simvastatin*) 10 MG TABLET 1 TAB PO QPM CHOLESTEROL (Reported) Triage Nurses Notes Reviewed? yes Onset: Gradual Duration: day(s): Timing: recent history Severity: moderate Activities at Onset: none Prior Episodes/Possible Cause: occasional episodes Modifying Factors: Improves With: rest. Associated Symptoms: cough, weakness HPI: 72 yo gentleman stage IV prostate CA on experimental chemo, h/o PE, on xarelto presents with fatigue, dyspnea, cough w/ phlegm. He was evaluated yesterday, was on levaquin, had stable presentation and was discharged. He shares, "Since then, I have gotten worse... I can hardly walk... I am very short of breath... The phlegm has gotten better but I just have no energy." He notes no chest pain, lower extremity swelling, fever, abdominal pain. He is otherwise well. Past History Travel History Traveled to [place] past 21 day No Medical History Any Pertinent Medical History? 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 Hx Contributory? No Review of Systems Review of Systems Constitutional: Reports: no symptoms. EENTM: Reports: no symptoms. Respiratory: Reports: no symptoms. Cardiovascular: Reports: no symptoms. GI: Reports: no symptoms. Genitourinary: Reports: no symptoms. Musculoskeletal: Reports: no symptoms. Skin: Reports: no symptoms. Neurological/Psychological: Reports: no symptoms. Hematologic/Endocrine: Reports: no symptoms. Immunologic/Allergic: Reports: no symptoms. All Other Systems: Reviewed and Negative Physical Exam Physical Exam General Appearance: well developed/nourished Head: atraumatic, normal appearance Eyes: Bilateral: normal appearance. Ears, Nose, Throat: normal pharynx, normal ENT inspection Neck: normal inspection, supple, full range of motion Respiratory: chest non-tender, rhonchi, prolonged expiratory phase Cardiovascular: regular rate/rhythm Gastrointestinal: normal bowel sounds, soft, non-tender Extremities: normal inspection, normal capillary refill, normal range of motion, no edema Neurologic/Psych: no motor/sensory deficits, awake, alert, oriented x 3 Skin: intact, normal color Core Measures ACS in differential dx? No CVA/TIA Diagnosis No Sepsis Present: No Sepsis Focused Exam Completed? No Progress Differential Diagnosis: asthma, bronchitis, CHF, COPD, pneumonia Plan of Care: Orders Procedure Date/time Status Saline Lock 01/12 311 Active Misc Message 01/12 311 Active ED Holding Orders 01/12 311 Active Admit to inpatient 01/12 311 Active Vital Signs 01/12 311 Active Code Status 01/12 311 Active OXYGEN SETUP (GEN) 01/12 135 Complete CONTIN. POSITIVE AIRWAY PRESS 01/12 135 Complete BLOOD CULTURE 01/12 35 Active BLOOD CULTURE 01/12 33 Active TROPONIN LEVEL 01/12 14 Complete LIPASE 01/12 14 Complete LACTIC ACID 01/12 14 Complete HEPATIC FUNCTION PANEL 01/12 14 Complete CBC WITHOUT DIFFERENTIAL 01/12 14 Complete BASIC METABOLIC PANEL 01/12 14 Complete AMYLASE 01/12 14 Complete EKG 01/12 14 Active Current Medications Sig/Heath Start time Last Medication Dose Stop Time Status Admin Sodium Chloride 1,000 ML BOLUS ONE 01/12 315 AC (Normal Saline 0.9%) 01/12 414 Azithromycin 500 MG ONCE ONE 01/12 45 CAN (Zithromax) 01/13 144 Sodium Chloride 250 ML (Normal Saline 0.9%) Laboratory Tests 01/12/18133: Anion Gap 13, Estimated GFR 40 L, BUN/Creatinine Ratio 30.0 H, Glucose 118 H, Lactic Acid 1.0, Calcium 7.4 L, Total Bilirubin 0.5, Direct Bilirubin 0.3, AST 64 H, ALT 57, Alkaline Phosphatase 123, Troponin I < 0.01, Total Protein 5.9 L , Albumin 3.1 L, Amylase 33, Lipase 11 L, CBC w Diff NO MAN DIFF REQ, RBC 3.41 L, MCV 82.7, MCH 28.0, MCHC 33.8, RDW 19.4 H, MPV 7.0 L, Gran % 80.9 H, Lymphocytes % 12.3 L, Monocytes % 4.6, Eosinophils % 1.4, Basophils % 0.8, Absolute Granulocytes 6.5, Absolute Lymphocytes 1.0 L, Absolute Monocytes 0.4, Absolute Eosinophils 0.1, Absolute Basophils 0.1 Microbiology 01/12 134 BLOOD: Blood Culture - RECD 01/12 35 BLOOD: Blood Culture - ORD Diagnostic Imaging: Viewed by Me: Radiology Read. Discussed w/RAD: Radiology Read. CXR Impression: PATIENT: GURPREET HOLDER PRESENT AGE : 72 PATIENT ACCOUNT NO: [id number] : 46 LOCATION: [facility] ORDERING PHYSICIAN: Joni Lott MD SERVICE DATE: 01/12/18 EXAM TYPE: RAD - XRY-PORTABLE CHEST XRAY EXAMINATION: CHEST 1 VIEW CLINICAL INFORMATION: Shortness of breath. COMPARISON: January 10, 2018. TECHNIQUE: An AP view of the chest is provided. FINDINGS: The cardiac silhouette is prominent, though stable. A right-sided port is in place. Evaluation of the lungs is limited due to low lung volumes and extensive overlying soft tissue secondary to the patient's body habitus. There is a appearance of fullness of the mediastinum, though that is also likely accentuated due to low lung volumes. There is an increase in interstitial prominence throughout both lungs, particularly within the lower aspects of each hemithorax. There is a developing rounded opacity within the medial right lung base. The osseous structures are stable. IMPRESSION: Slightly limited evaluation due to low lung volumes, though there is the appearance of increase in interstitial prominence throughout both lungs as well as more focal opacification within the medial right lung base. Continued follow-up is warranted. DICTATED BY: Zach Carmichael MD DATE/TIME DICTATED:01/12/18157 CHAINSTITCH BINDER:MARYANNE DATE/TIME TRANSCRIBED:01/12/18157 CONFIDENTIAL, DO NOT COPY WITHOUT APPROPRIATE AUTHORIZATION. <Electronically signed in Other Vendor System> SIGNED BY: Zach Carmichael MD 01/12/18 0213 Initial ED EKG: trigeminy without acute changes from prior, Departure Departure Disposition: STILL A PATIENT Condition: Stable Clinical Impression Primary Impression: COPD exacerbation Secondary Impressions: Acute renal failure, Adenocarcinoma of prostate, stage 4 Referrals: Marcellus Vasquez MD (PCP/Family) Departure Forms: Customer Survey General Discharge Information Admission Note Spoke With: Clarke Salas MD Documentation of Exam: Documentation of any treatments & extenuating circumstances including Concerns Regarding Discharge (functional status, medication knowledge or non-compliance, living conditions, etc.) that warrant an admission rather than observation: pt with acute renal failure, copd exacerbation/bronchitis with increased 02 requirement, merits iv steroids/abx, iv fluids.... pt is high risk... stage IV prostate cancer, conferring increased morbidity. Critical Care Note Critical Care Note Critical Care Time: 30-74 min
[2018-01-12 01:46] LABS: ABSOLUTE BASOPHIL COUNT 0.1 /CUMM (0.0-0.2); ABSOLUTE EOSINOPHIL COUNT 0.1 /CUMM (0.0-0.7); ABSOLUTE GRANULOCYTE CT 6.5 /CUMM (1.4-6.5); ABSOLUTE MONOCYTE COUNT 0.4 /CUMM (0.10-0.60); BASOPHIL % 0.8 % (0.0-2.0); EOSINOPHIL % 1.4 % (0-5); GRANULOCYTE % 80.9 % (42.2-75.2); HEMATOCRIT 28.2 % (42-52); MEAN CORPUSCULAR HGB CONC 33.8 G/DL (33.0-37.0); MEAN CORPUSCULAR VOLUME 82.7 FL (80.0-94.0); PLATELET COUNT 301 /CUMM (130-400); RBC DISTRIBUTION WIDTH 19.4 % (11.5-14.5); RED BLOOD CELL CT 3.41 /CUMM (4.70-6.10)
--- NOTE | 2018-01-12 02:13 | RADIOLOGY REPORT ---
EXAMINATION: CHEST 1 VIEW CLINICAL INFORMATION: Shortness of breath. COMPARISON: January 10, 2018. TECHNIQUE: An AP view of the chest is provided. FINDINGS: The cardiac silhouette is prominent, though stable. A right-sided port is in place. Evaluation of the lungs is limited due to low lung volumes and extensive overlying soft tissue secondary to the patient's body habitus. There is a appearance of fullness of the mediastinum, though that is also likely accentuated due to low lung volumes. There is an increase in interstitial prominence throughout both lungs, particularly within the lower aspects of each hemithorax. There is a developing rounded opacity within the medial right lung base. The osseous structures are stable. IMPRESSION: Slightly limited evaluation due to low lung volumes, though there is the appearance of increase in interstitial prominence throughout both lungs as well as more focal opacification within the medial right lung base. Continued follow-up is warranted.
--- NOTE | 2018-01-12 04:34 | History & Physical ---
Sara ARGUETA,[facility] 01/12/18 0433: General Information and HPI MD Statement: I have seen and personally examined GURPREET HOLDER and documented this H&P. The patient is a 72 year old M who presented with a patient stated chief complaint of [SOB]. Source of Information: patient Exam Limitations: no limitations History of Present Illness: 72 yo morbidly obese M has a h/o HTN, TROY on CPAP and 2 L of Oxygen at home(as needed), recurrent metastatic prostate cancer s/p chemotherapy, currently in an experimental chemo trial, HFpEF and PE on Xarelto(november 2017) presents with shortness of breath and body aches. Per the patient, he started the getting experimental chemotherapy agent if you starting January 04. On January 07 he went to the ER because he will feeling fatigued, short of breath and had pain in his legs. Also had some cough with sputum production. He was diagnosed with pneumonia and started on Levaquin. He was told to come back in 2 days, and he was seen in the ER again on January 09, at that time day told the patient to get admitted which the patient refused. Last night felt he was getting worse as he had severe body aches, felt short of breath and could not walk, states he was shuffling his gait. Also reports decreased appetite, orthopnea and exertional dyspnea. He has been using the oxygen on and off. Reports improvement in his cough with clear-colored sputum production. Also saw his PCP yesterday who told him to continue taking antibiotics and prescribed Tylenol with codeine for body aches. Denies any fever/chills, sick contacts, recent travel, chest pain, worsening leg swelling or PND. 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 Psychosocial History Where do you live? Home Who Do You Live With? self Services at Home: None Primary Language: Egyptian Smoking Status: Never Smoked ETOH Use: occasional use Illicit Drug Use: denies illicit drug use Functional Ability ADLs Independent: dressing, eating, toileting, bathing. Ambulation: independent IADLs Independent: shopping, housework, finances, food prep, telephone, transportation , medication admin. Review of Systems Review of Systems Constitutional: Reports: no symptoms. EENTM: Reports: no symptoms. Cardiovascular: Reports: orthopena, peripheral edema. Respiratory: Reports: cough, short of breath. GI: Reports: no symptoms. Genitourinary: Reports: no symptoms. Musculoskeletal: Reports: no symptoms. Skin: Reports: no symptoms. Neurological/Psychological: Reports: no symptoms. Hematologic/Endocrine: Reports: no symptoms. Immunologic/Allergic: Reports: no symptoms. All Other Systems: Reviewed and Negative Exam & Diagnostic Data Last 24 Hrs of Vital Signs/I&O Vital Signs Date Time Temp Pulse Resp B/P B/P Pulse O2 O2 Flow FiO2 Mean Ox Delivery Rate 01/12 0559 86 94 01/12 0427 98.0 84 20 111/57 96 Nasal 2.0L Cannula 01/12 0229 94 18 113/56 95 Nasal 3.0L Cannula 01/12 0222 Nasal 2.0L Cannula 01/12 0112 89 01/12 0026 99.0 92 20 106/67 92 Room Air Intake & Output 01/12 0800 01/12 0000 01/11 1600 Intake Total 120 Output Total Balance 120 Intake, Oral 120 Patient 260 lb Weight Weight Reported by Patient Measurement Method Physical Exam General Appearance Alert, Oriented X3, Cooperative Skin No Rashes, No Breakdown HEENT Atraumatic, PERRLA, EOMI, Mucous Membr. moist/pink Neck Supple, No JVD, No thryomegaly Cardiovascular Regular Rate, Normal S1, Normal S2 Lungs Clear to Auscultation Abdomen Normal Bowel Sounds, Soft, No Tenderness, distended Extremities No Clubbing, No Cyanosis, +1 pitting edema Last 24 Hrs of Labs/Gabe: Laboratory Tests 01/12/18 0134: Anion Gap 13, Estimated GFR 40 L, BUN/Creatinine Ratio 30.0 H, Glucose 118 H, Lactic Acid 1.0, Calcium 7.4 L, Total Bilirubin 0.5, Direct Bilirubin 0.3, AST 64 H, ALT 57, Alkaline Phosphatase 123, Troponin I < 0.01, Total Protein 5.9 L , Albumin 3.1 L, Amylase 33, Lipase 11 L, CBC w Diff NO MAN DIFF REQ, RBC 3.41 L, MCV 82.7, MCH 28.0, MCHC 33.8, RDW 19.4 H, MPV 7.0 L, Gran % 80.9 H, Lymphocytes % 12.3 L, Monocytes % 4.6, Eosinophils % 1.4, Basophils % 0.8, Absolute Granulocytes 6.5, Absolute Lymphocytes 1.0 L, Absolute Monocytes 0.4, Absolute Eosinophils 0.1, Absolute Basophils 0.1 Microbiology 01/12 711 URINE ROUT: Legionella Antigen - ORD 01/12 711 URINE ROUT: Streptococcus pneumoniae Antigen (M - ORD 01/12 711 LOWER RESP: Respiratory Culture - ORD 01/12 711 LOWER RESP: Gram Stain - ORD 01/12 013 BLOOD: Blood Culture - RECD 01/12 003 BLOOD: Blood Culture - ORD Diagnostic Data CXR Results IMPRESSION: Slightly limited evaluation due to low lung volumes, though there is the appearance of increase in interstitial prominence throughout both lungs as well as more focal opacification within the medial right lung base. Continued follow-up is warranted. Assessment/Plan Assessment: 72 yo morbidly obese M has a h/o HTN, TROY on CPAP and 2 L of Oxygen at home(as needed), recurrent metastatic prostate cancer s/p chemotherapy, currently in an experimental chemo trial, HFpEF and PE on Xarelto(november 2017) presents with shortness of breath and body aches. Vitals Temp 99.0 %, HR 92, RR 20, BP 106/67 and O 2 sats 89 % started on 2L. Labs showed WBC WNL but with elevated gran, NA 133, BUN/Cr. 51/1.7, glucose 118, Ca 7.4, and of AST 64. CXR increase in interstitial prominence throughout both lungs as well as more focal opacification within the medial right lung base. Problem List; 1. SOB; 2/2 to ?? CAP 2. Body aches, deconditioning; ?? S/E from chemo 3. FLAKO 4. Hx of prostate Ca, with active chemoHFpEF 5. Other chronic medical conditions. - Admit the patient to Gen med floor. - No improvement with Levaquin, will start the patient on ceftriaxone and azithro. - Follow-up sputum culture, urine Legionella and pneumonia. - Supplemental oxygen as needed - Hold Lasix for FLAKO - Give gentle IV fluids if Cr. does not improve. - Continue home meds. DVT Prophylaxis; ALPS and Xarelto Patient is full code. As Ranked By This Provider Problem List: 1. Acute renal failure 2. Shortness of breath 3. Pneumonia Core Measures/Misc (01/21) Acute Coronary Syndrome ACS Diagnosis: No Congestive Heart Failure Congestive Heart Failure Diagnosis No Cerebrovascular Accident CVA/TIA Diagnosis: No VTE (View Protocol) VTE Risk Factors Age>40 No Mechanical VTE Prophylaxis d/t N/A MechProphylax Ordered No VTE Pharm Prophylaxis d/t NA PharmProphylax ordered Sepsis (View protocol) Sepsis Present: No If YES complete Sepsis Event Note If YES complete Sepsis Event Note Clarke Salas 01/12/18 0441: General Information and HPI Allergies/Medications Home Med list Alendronate Sodium (Fosamax) 70 MG TABLET 1 TAB PO QW BONES (Reported) in the morning, at least 30 minutes before the first food, beverage, or medication of the day Every Sunday Amlodipine Besylate 5 MG TABLET 1 TAB PO DAILY BP (Reported) Denosumab (Xgeva) 120 MG/1.7 ML (70 MG/ML) VIAL 1 INJ SC Q30D UNKNOWN ( Reported) Finasteride (Proscar) 5 MG TABLET 1 TAB PO DAILY BPH (Reported) Furosemide 40 MG TABLET 1 TAB PO DAILY WATER RETENTION (Reported) Leuprolide Acetate (Eligard) 22.5 MG (3 MONTH) SYRINGE UNKNOWN (Reported) Levofloxacin (Levaquin) 750 MG TABLET 1 TAB PO DAILY ANTIBIOTIC, INFECTION ( Reported) Rivaroxaban (Xarelto) 20 MG TABLET 1 TAB PO DAILY PE (Reported) with food Simvastatin (Simvastatin*) 10 MG TABLET 1 TAB PO QPM CHOLESTEROL (Reported) Core Measures/Misc (01/21) Sepsis (View protocol) If YES complete Sepsis Event Note If YES complete Sepsis Event Note Attending MD Review Statement Attending Statement Attending MD Statement: examined this patient, discuss w/resident/PA/AIRCRAFT MAINTENANCE MANAGER, agreed w/resident/PA/AIRCRAFT MAINTENANCE MANAGER Attending Assessment/Plan: Addendum by . Patient was seen and examined at bedside today ( 01/12/18 ) at 3Am. Reviewed the history physical done by the resident. Reviewed the past medical family, family, social history. ROS: 10 point system reviewed and negative except as described above. Additional details: Patient is a 72-year-old male with pmh of stage IV adenocarcinoma of the prostate with bone metastases was currently on chemotherapy(JEVTANA-cabazitaxel) in the past, now on leuprolide and monthly Denosumab injection, h/o PE On Xarelto, hypertension, hyperlipidemia , HFpEF on lasix is here with increased sob and body aches. Patient says that he has been having short of breath for the last 2 months, but for the last 1 week it has been worse. Patient is attending a trial at [place] which involves OLAPARIB. Which he took for about 7 days. Patient went to the with the shortness of breath, digit chest x-ray and he was told that he had a pneumonia. Patient says that he was given a dose of IV antibiotic which she does not know the name, also sent home with levofloxacin. Patient was here in the emergency room day before yesterday with similar complaints, had a chest x-ray which was not showing much infiltrates so he was sent home to continue the home antibiotics. Comes back with slightly worsening dyspnea and body aches. Patient also visited his PCP yesterday. Patient says that for 2 months has been not able to lie flat, has been using recliner to sleep. Has mild cough with scanty sputum. No fever. Exam: Patient was sitting comfortably. Alert, awake, oriented 3, not in distress, on 2 L oxygen via nasal cannula. obese. No JVD Heart-regular heart sounds, no murmurs, Lungs-bilaterally good air entry, no wheezing, no crackles on my exam. Abdomen obese, nontender. No leg edema. See the full exam per resident note. Chest x-ray, labs, prior echo, old records reviewed. Assessment: #Increased shortness of breath: Probable bilateral pneumonia basis +/- COPD. Patient has increased opacities on the chest x-ray from today compared to x-ray from yesterday but today's x-ray is portable and on clinical examination there was no evidence of crackles. Given his complaints and x-ray findings would treat as pneumonia. Patient did not improve with the levofloxacin. Will give ceftriaxone plus Zithromax IV. Get sputum cultures. Not completely convinced that there is pneumonia but would get pulmonology opinion. #Acute renal failure: Creatinine is 1.7, baseline is around 1. Will hold off Lasix. We will not give any IV fluids. Watch the creatinine. #Chronic hypoxic respiratory failure patient is on 2 L oxygen at home at baseline. Patient says he has COPD but never smoked and also no documentation of COPD noted in the previous records. Patient is also on CPAP at home, will continue CPAP here. Continue with oxygen support. #Heart failure with preserved EF. Patient is on Lasix 40 mg daily. Get cardiac BNP. Patient is not in overt fluid overload. His last EF was 62%. Will hold Lasix in view of acute renal failure. #Stage IV metastatic prostate cancer. Currently on leuprolide and denosumab monthly injections. Patient is enrolled in trial at [facility]. Patient was given OLAPARIB as a part of trial, took it for ~7 days. Question whether his body pains and shortness of breath's due to this medication. #hypertension, hyperlipidemia-continue with the home medications. #history of PE-continue with Xarelto. Reviewed with the resident. Agree with the rest of the plan as per resident's note. Dr.Ravinder Bob MD. Hospitalist. Pager: [phone], cell: [phone].
[2018-01-12] MEDS ORDERED: XARELTO20 M2 PO (05:08)
[2018-01-12 06:54] VITALS: BP 114/62
[2018-01-12 14:39] VITALS: BP 108/58
--- NOTE | 2018-01-12 15:17 | PN- Att Addend ---
Attending Addendum Attending Brief Note stage 4 adenocarcinoma of prostate with bone mets- pt on experimental therapy with Olaparib as part of clinical trial with Dr Rivera. PNeumonia - on ceftriaxone and zithromax. for b/l Pneumonia. Failed levofloxacin as outpatient. Constipation- pt started on bowel regimen. Pulmonary embolism- on xarelto.
[2018-01-12 22:12] VITALS: BP 116/60
[2018-01-13 06:34] VITALS: BP 108/62
--- NOTE | 2018-01-13 08:13 | PN- Housestaff ---
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 Claims he feels much better since admission. On room air, normally takes oxygen as needed 2L at home. Currently on Azithromycin but no steroids. Patient concerned about his calcium levels for his cancer medciation Xgeva. Will follow today. Review of Systems Constitutional: Denies: see HPI. Objective Last 24 Hrs of Vital Signs/I&O Vital Signs Date Time Temp Pulse Resp B/P B/P Pulse O2 O2 Flow FiO2 Mean Ox Delivery Rate 01/13 0856 98.7 80 20 108/62 01/13 0800 Room Air 01/13 0634 98.7 80 20 108/62 92 01/13 0000 97 Nasal 2.0L Cannula 01/12 2212 97.7 84 18 116/60 97 Nasal Cannula 01/12 1910 89 98 01/12 1600 Nasal 2.0L Cannula 01/12 1439 98.1 77 18 108/58 94 Intake & Output 01/13 1600 01/13 0800 01/13 0000 Intake Total 450 120 Output Total Balance 450 120 Intake, IV 250 Intake, Oral 200 120 Physical Exam General Appearance: Alert, Oriented X3, Cooperative Skin: No Rashes, No Breakdown HEENT: EOMI, Mucous Membr. moist/pink Cardiovascular: Regular Rate, Normal S1, Normal S2 Lungs: Clear to Auscultation, Normal Air Movement Abdomen: Normal Bowel Sounds, Soft, No Tenderness Extremities: No Clubbing, No Cyanosis, No Edema Vascular: Pulses Symmetrical Current Medications: Current Medications Sig/Heath Start time Last Medication Dose Route Stop Time Status Admin Acetaminophen 1,000 MG ONCE PRN 01/12 1830 DC N/A 1 UNIT IV 01/12 2300 Acetaminophen 650 MG Q6PRN PRN 01/12 0600 AC 01/13 PO 0240 Alendronate Sodium 70 MG QWED 01/16 09 AC PO Amlodipine Besylate 5 MG DAILY 01/12 09 AC 01/13 PO 0856 Atorvastatin Calcium 5 MG 1700 01/12 1700 AC 01/12 PO 1745 Azithromycin 500 MG Q24H 01/13 0100 AC 01/13 Sodium Chloride 250 ML IV 0049 Azithromycin 500 MG Q24H 01/12 1400 DC Sodium Chloride 250 ML IV Ceftriaxone Sodium 1,000 MG Q24H 01/12 1400 AC 01/12 IV 1443 Docusate Sodium 100 MG DAILY 01/12 1351 AC 01/12 PO 1443 Finasteride 5 MG DAILY 01/12 0900 AC 01/13 PO 0855 Polyethylene Glycol 17 GM DAILY 01/12 1351 AC 01/13 PO 0857 Rivaroxaban 20 MG DAILY 01/12 900 AC 01/13 PO 0855 Senna/Docusate Sodium 2 TAB DAILY PRN 01/12 1400 AC 01/13 PO 0856 Last 24 Hrs of Lab/Gabe Results Last 24 Hrs of Labs/Mics: Laboratory Tests 01/13/18 1124: Anion Gap 11, Estimated GFR 40 L, BUN/Creatinine Ratio 42.4 H, Calcium 7.3 L 01/13/18 1124: Albumin 3.2 L, CBC w Diff Pending, WBC Pending, RBC Pending, Hgb Pending, Hct Pending, MCV Pending, MCH Pending, MCHC Pending, RDW Pending, Plt Count Pending, MPV Pending, Gran % Pending, Lymphocytes % Pending, Monocytes % Pending, Eosinophils % Pending, Basophils % Pending, Absolute Granulocytes Pending, Absolute Lymphocytes Pending, Absolute Monocytes Pending, Absolute Eosinophils Pending, Absolute Basophils Pending 01/12/18 1312: Anion Gap 11, Estimated GFR 46 L, BUN/Creatinine Ratio 35.3 H Microbiology 01/13 1820 LOWER RESP: Respiratory Culture - RES 01/13 1820 LOWER RESP: Gram Stain - RES Assessment/Plan Assessment: 72 yo morbidly obese M has a h/o HTN, TROY on CPAP and 2 L of Oxygen at home(as needed), recurrent metastatic prostate cancer s/p chemotherapy, currently in an experimental chemo trial, HFpEF and PE on Xarelto(november 2017) presents with shortness of breath and body aches. CXR increase in interstitial prominence throughout both lungs as well as more focal opacification within the medial right lung base. 01/13: On room air, afebrile on IV azithromycin. Leukocytosis today of 11.8. Claims he feels much better and able to ambulate compared to admission. Concerned about his calcium levels for his cancer medication Xgeva which is 7.3 today. Normally takes 2400mg of calcium daily. Creatinine continuing to increase to 1.7. PROBLEM LIST: 1. CAP 2. FLAKO 3. COPD on 2L baseline 4. HF w. presereved EF 5. Stage IV metastatic prostate CA 6. Chronic medical conditions: HTN, HLD 7. History of PE PLAN: * Continue Azithro for suspected PNA on imaging; Leukocytosis of 11.8 today from 8.0 * Cultures/lantigens/stains negative as of now * Hold lasix for FLAKO For now; creatinine: 1.7 today DVT Prophylaxis; ALPS and Xarelto FULL CODE Problem List: 1. Pneumonia Pain Ratin Pain Location: denies pain today Pain Goal: Remain pain free Pain Plan: as per pain pathway Tomorrow's Labs & Rationales: cbc bep Sherin Owenchaya 01/13/18 1438: Attending MD Review Statement Attending Statement Attending MD Statement: examined this patient, discuss w/resident/PA/SELF RISING FLOUR MIXER, agreed w/resident/PA/SELF RISING FLOUR MIXER, reviewed EMR data (avail), discussed with nursing Attending Assessment/Plan: stage 4 adenocarcinoma of prostate with bone mets- pt on experimental therapy with Olaparib as part of clinical trial with Dr Ho Rivera. Will need to inform him about FLAKO as it is a known side effect of this med. PNeumonia - on ceftriaxone and zithromax. for b/l Pneumonia. Failed levofloxacin as outpatient. FLAKO- not resolving. BUN up and cr up. start on iv fluids NS at 100ml/hr and recheck in am. Constipation- pt started on bowel regimen.
[2018-01-13 12:11] LABS: ABSOLUTE BASOPHIL COUNT 0 /CUMM (0.0-0.2); ABSOLUTE EOSINOPHIL COUNT 0 /CUMM (0.0-0.7); ABSOLUTE GRANULOCYTE CT 10.4 /CUMM (1.4-6.5); ABSOLUTE LYMPH COUNT 0.7 /CUMM (1.2-3.4); ABSOLUTE MONOCYTE COUNT 0.7 /CUMM (0.10-0.60); BASOPHIL % 0 % (0.0-2.0); EOSINOPHIL % 0 % (0-5); HEMATOCRIT 26.6 % (42-52); MEAN CORPUSCULAR HGB 28.1 PG (27.0-31.0); MEAN CORPUSCULAR HGB CONC 33.9 G/DL (33.0-37.0); MEAN CORPUSCULAR VOLUME 82.8 FL (80.0-94.0); MEAN PLATELET VOLUME 7.2 FL (7.4-10.4); PLATELET COUNT 329 /CUMM (130-400); RBC DISTRIBUTION WIDTH 20.1 % (11.5-14.5); WHITE BLOOD CELL COUNT 11.8 /CUMM (4.8-10.8)
[2018-01-13 12:27] LABS: RED BLOOD CELL CT 3.21 /CUMM (4.70-6.10)
[2018-01-13 12:44] LABS: GRANULOCYTE % 88.1 % (42.2-75.2)
[2018-01-13 14:27] VITALS: BP 132/70
[2018-01-13 22:05] VITALS: BP 124/56
--- NOTE | 2018-01-14 06:53 | PN- Housestaff ---
See Addendum Cecil Ojeda 01/14/18 0653: Subjective Follow-up For: CAP Subjective: Pt seen and examined today. He is on 2L NC, sat of 95%. He complains of worsening lower back pain. Had to sleep on the recliner chair as he couldn't lay flat on the bed. He is afebrile, with resolved leukocytosis. He is currently on day #3 of azithromycin and ceftriaxone. Had a suppository yesterday with a subsequent BM, though patient still feels bloated. Review of Systems Constitutional: Reports: see HPI. Objective Last 24 Hrs of Vital Signs/I&O Vital Signs Date Time Temp Pulse Resp B/P B/P Pulse O2 O2 Flow FiO2 Mean Ox Delivery Rate 01/15 0848 98.0 81 20 110/60 01/14 0800 95 Nasal 2.0L Cannula 01/14 0714 98.0 81 20 110/60 92 09/ 0000 CPAP 01/13 2205 97.9 83 20 124/56 93 Room Air 01/13 2146 87 98 01/13 1427 98.6 86 20 132/70 93 Room Air Intake & Output 01/14 1600 01/14 0800 01/14 0000 Intake Total 650 800 Output Total Balance 650 800 Intake, IV 650 800 Physical Exam General Appearance: Alert, Oriented X3, Cooperative, Mild Distress, Obese Skin: No Rashes HEENT: Atraumatic Neck: Supple Cardiovascular: Regular Rate, Normal S1, Normal S2, No Murmurs Lungs: Scattered rhonchi heard B/L Abdomen: Normal Bowel Sounds, Soft, No Tenderness, Abdominal distension noted Extremities: No Edema Current Medications: Current Medications Sig/Heath Start time Last Medication Dose Route Stop Time Status Admin Acetaminophen 650 MG Q6PRN PRN 01/12 0600 AC 01/14 PO 0848 Alendronate Sodium 70 MG QWED 01/16 09 AC PO Amlodipine Besylate 5 MG DAILY 01/12 09 AC 01/14 PO 0848 Atorvastatin Calcium 5 MG 1700 01/12 1700 AC 01/13 PO 1649 Azithromycin 500 MG Q24H 01/13 0100 AC 01/14 Sodium Chloride 250 ML IV 0026 Bisacodyl 10 MG DAILY PRN 01/13 1445 AC 01/13 AZ 1647 Calcium 600 MG 4 TIMES/DAY 01/13 1441 AC 01/14 PO 1319 Ceftriaxone Sodium 1,000 MG Q24H 01/12 1400 AC 01/14 IV 1321 Docusate Sodium 100 MG DAILY 01/12 1351 AC 01/14 PO 0848 Finasteride 5 MG DAILY 01/12 0900 AC 01/14 PO 0849 Patient Medication 1 ED ONE ONE 01/14 1045 DC 01/14 Teaching ED 01/14 1046 1324 Polyethylene Glycol 17 GM DAILY 01/12 1351 AC 01/14 PO 0849 Rivaroxaban 20 MG DAILY 01/12 09 AC 01/14 PO 0848 Senna/Docusate Sodium 2 TAB DAILY PRN 01/12 1400 AC 01/13 PO 0856 Sodium Chloride 1,000 ML Q10H 01/13 1500 DC 01/13 IV 01/14 0059 1647 Last 24 Hrs of Lab/Gabe Results Last 24 Hrs of Labs/Mics: Laboratory Tests 01/14/18 1119: Anion Gap 8, Estimated GFR > 60, BUN/Creatinine Ratio 52.7 H, CBC w Diff NO MAN DIFF REQ, RBC 3.22 L, MCV 82.9, MCH 27.8, MCHC 33.5, RDW 20.4 H, MPV 6.7 L, Gran % 82.2 H, Lymphocytes % 9.4 L, Monocytes % 7.9, Eosinophils % 0.5, Basophils % 0, Absolute Granulocytes 6.6 H, Absolute Lymphocytes 0.8 L, Absolute Monocytes 0.6, Absolute Eosinophils 0, Absolute Basophils 0 Assessment/Plan Assessment: 72 y/o morbidly obese M with a PMH h/o HTN, TROY on CPAP and 2 L of Oxygen at home (as needed), recurrent metastatic prostate cancer s/p chemotherapy, currently in an experimental chemo trial, HFpEF and PE on Xarelto(started november 2017) presents with shortness of breath and body aches. CXR on admission showed increased interstitial prominence throughout both lungs as well as more opacification within the medial right lung base. He was admitted to general medicine for further management of: PROBLEM LIST: 1. CAP, on azithro, ceftriaxone (Day #3) 2. FLAKO, resolving 3. COPD on 2L baseline 4. HF w. presereved EF 5. Stage IV metastatic prostate CA 6. Chronic medical conditions: HTN, HLD 7. History of PE PLAN: * Continue Azithro and ceftriaxone (day #3) for suspected PNA on imaging; Leukocytosis of 11.8 yesterday to 8.0 today. Will need transition to PO antibiotics. * Cultures no growth yet - Urinary antigens for Legionella and Strep pneumo are negative. * Continue to hold lasix for FLAKO For now; creatinine: 1.1 today * PT evaluated the patient: he demonstrated safe mobility at this time; they did not recommened continued skilled physical therapy at this point. DVT Prophylaxis; ALPS and Xarelto FULL CODE Problem List: 1. Pneumonia Pain Ratin Pain Location: Lower back pain Pain Goal: Remain pain free Pain Plan: as indicated Tomorrow's Labs & Rationales: n/a Zach Tracey MD 01/14/18 2016: Attending MD Review Statement Attending Statement Attending MD Statement: examined this patient, discuss w/resident/PA/PARTNER CCO, agreed w/resident/PA/PARTNER CCO, reviewed EMR data (avail), discussed with nursing, discussed with case mgmt, amended to note Attending Assessment/Plan: The patient was seen and discussed with house staff, nursing, and case management. The patient's breathing has improved. Does note back pain and difficulty sleeping secondary to this. Agree with trial of pain med, cyclobenzaprine, May benefit from follow-up with oncology/radiation oncology regarding back pain as outpatient.
[2018-01-14 07:14] VITALS: BP 110/60
[2018-01-14 11:37] LABS: ABSOLUTE BASOPHIL COUNT 0 /CUMM (0.0-0.2); ABSOLUTE EOSINOPHIL COUNT 0 /CUMM (0.0-0.7); ABSOLUTE GRANULOCYTE CT 6.6 /CUMM (1.4-6.5); ABSOLUTE LYMPH COUNT 0.8 /CUMM (1.2-3.4); ABSOLUTE MONOCYTE COUNT 0.6 /CUMM (0.10-0.60); BASOPHIL % 0 % (0.0-2.0); EOSINOPHIL % 0.5 % (0-5); GRANULOCYTE % 82.2 % (42.2-75.2); HEMATOCRIT 26.7 % (42-52); MEAN CORPUSCULAR HGB 27.8 PG (27.0-31.0); MEAN CORPUSCULAR HGB CONC 33.5 G/DL (33.0-37.0); MEAN CORPUSCULAR VOLUME 82.9 FL (80.0-94.0); MEAN PLATELET VOLUME 6.7 FL (7.4-10.4); PLATELET COUNT 320 /CUMM (130-400); RBC DISTRIBUTION WIDTH 20.4 % (11.5-14.5); RED BLOOD CELL CT 3.22 /CUMM (4.70-6.10)
[2018-01-14 14:52] VITALS: BP 115/60
[2018-01-14] MEDS ORDERED: CEFUROXIME500 MG PO (15:26)
[2018-01-14] MEDS ORDERED: ZITHROMAX500 M2 PO (15:26)
--- NOTE | 2018-01-14 15:31 | Patient Discharge Instructions ---
Discharge Instructions General Discharge Information You were seen/treated for: Pneumonia Special Instructions: Please follow up with Oncologist Dr Lindsay within 1 week of discharge Please follow up with your PCP within 1 week regarding this sadmission. Please follow up with your pulmunologist within 2 weeks of discharge. You were discharged on antibiotics. Please take both of them twice a day for 5 days. Acute Coronary Syndrome Inclusion Criteria At DC or during hospital stay patient has or had the following: ACS DIAGNOSIS No Discharge Core Measures Meds if any: Prescribed or Continued at Discharge Meds if any: NOT Prescribed or Continued at Discharge Congestive Heart Failure Inclusion Criteria At DC or during hospital stay patient has or had the following: CHF DIAGNOSIS No Discharge Core Measures Meds if any: Prescribed or Continued at Discharge Meds if any: NOT Prescribed or Continued at Discharge Cerebrovascular accident Inclusion Criteria At DC or during hospital stay patient has or had the following: CVA/TIA Diagnosis No Discharge Core Measures Meds if any: Prescribed or Continued at Discharge Meds if any: NOT Prescribed or Continued at Discharge Venous thromboembolism Inclusion Criteria VTE Diagnosis No VTE Type NONE VTE Confirmed by (Test) NONE Discharge Core Measures - Per Current guidelines, there needs to be overlap - treatment for the first 5 days of Warfarin therapy. - If discharged on Warfarin prior to 5 days of - overlap therapy, the patient will need to be - assessed for post discharge needs including - *Post discharge parental anticoagulation - *Warfarin and/or parental anticoagulation education - *Follow up date to check INR post discharge At least 5 days overlap therapy as Inpatient No Meds if any: Prescribed or Continued at Discharge Note: Overlap Therapy is Warfarin and Anticoagulant Meds if any: NOT Prescribed or Continued at Discharge
--- NOTE | 2018-01-14 15:32 | Discharge Summary ---
Visit Information Visit Dates Admission Date: 01/12/18 Discharge Date: 01/16/18 Hospital Course Course Attending Physician: Zach Tracey MD Primary Care Physician: Christina ARGUETA,[facility] Course: 72 y/o morbidly obese M with a PMH h/o HTN, TROY on CPAP and 2 L of Oxygen at home (as needed), recurrent metastatic prostate cancer s/p chemotherapy, currently in an experimental chemo trial, HFpEF and PE on Xarelto(started november 2017) presents with shortness of breath and body aches. CXR on admission showed increased interstitial prominence throughout both lungs as well as more opacification within the medial right lung base. He was admitted to general medicine for further management of the following active issues: 1. Community-acquired pneumonia 2. FLAKO History of: 3. COPD on 2L baseline 4. HF w. presereved EF 5. Stage IV metastatic prostate CA 6. Chronic medical conditions: HTN, HLD 7. History of PE 1. Community-acquired pneumonia Patient's complain of SOB and body aches with CXR on admission showing opacificitions and interstitial prominence throughout both lungs was concerning for PNA. Notably, he was already diagnosed with PNA on jan 07 with the same complains where he was started on levofloxacin. We started a course of ceftriaxone and azithromycin IV for 3 days with noted improvement in his symptoms. He was on his baseline oxygen requirement throughout his stay. He was discharged on cefuroxime and azithromycin PO twice a day for 5 days. He was given a flu vaccination. 2. FLAKO Patient's initial Cr on admission was 1.7. He normally takes lasix - that was held. His Cr went back to normal by day #3 of hospitalization, latest being 1.1. He received 1L of NS. The rest of his medications for his other medical conditions were continued. Amlodipine, finasteride, rivaroxaban, atorvastin, calcium carbonate, alendronate. PAtient had intense back pain, he was discharged on percocet with instructions to follow DR. Mcfarlane for the pain. During his stay, the patient was a FULL CODE. He had a regular diet, well tolerated. Allergies: Coded Allergies: No Known Allergies (10/12/16) Significant Procedures: PATIENT: GURPREET HOLDER PRESENT AGE: 72 PATIENT ACCOUNT NO: [id number] : 46 LOCATION: [facility] ORDERING PHYSICIAN: Joni Lott MD SERVICE DATE: 01/12/180014 EXAM TYPE: RAD - XRY-PORTABLE CHEST XRAY EXAMINATION: CHEST 1 VIEW CLINICAL INFORMATION: Shortness of breath. COMPARISON: January 10, 2018. TECHNIQUE: An AP view of the chest is provided. FINDINGS: The cardiac silhouette is prominent, though stable. A right-sided port is in place. Evaluation of the lungs is limited due to low lung volumes and extensive overlying soft tissue secondary to the patient's body habitus. There is a appearance of fullness of the mediastinum, though that is also likely accentuated due to low lung volumes. There is an increase in interstitial prominence throughout both lungs, particularly within the lower aspects of each hemithorax. There is a developing rounded opacity within the medial right lung base. The osseous structures are stable. IMPRESSION: Slightly limited evaluation due to low lung volumes, though there is the appearance of increase in interstitial prominence throughout both lungs as well as more focal opacification within the medial right lung base. Continued follow-up is warranted. DICTATED BY: Zach Carmichael MD DATE/TIME DICTATED:01/12/18157 RIGGER HELPER:MARYANNE DATE/TIME TRANSCRIBED:01/12/18157 CONFIDENTIAL, DO NOT COPY WITHOUT APPROPRIATE AUTHORIZATION. <Electronically signed in Other Vendor System> SIGNED BY: Zach Carmichael MD 01/12/18 0213 Disposition Summary Disposition Principal Diagnosis: Community acquired pneumonia Additional Diagnosis: FLAKO Discharge Disposition: home or self care Discharge Instructions General Discharge Information Code Status: Full Code Patient's Diet: Regular Diet Patient's Activity: As tolerated Follow-Up Instructions/Appts: Please follow up with your PCP within 1 week of discharge to discuss this hospital admission. You were discharged on antibiotics. Please take them as directed. Medications at Discharge Discharge Medications: Stop taking the following medications: Levofloxacin (Levaquin) 750 MG TABLET ORAL DAILY Continue taking these medications: Simvastatin (Simvastatin*) 10 MG TABLET 1 Tablet ORAL Every night Comments: LAST GIVEN 01/15/18 @ 6:00 PM Alendronate Sodium (Fosamax) 70 MG TABLET 1 Tablet ORAL Once a Week Instructions: in the morning, at least 30 minutes before the first food, beverage, or medication of the day Every Sunday Comments: LAST TAKEN: 9/12/18 @ 11 AM Amlodipine Besylate (Amlodipine Besylate) 5 MG TABLET 1 Tablet ORAL DAILY Comments: LAST GIVEN 01/16/18 @ 9:30 AM Finasteride (Proscar) 5 MG TABLET 1 Tablet ORAL DAILY Comments: LAST GIVEN: 01/16/18 9:30 AM Furosemide (Furosemide) 40 MG TABLET 1 Tablet ORAL DAILY Comments: NOT TAKEN IN HOSPITAL Leuprolide Acetate (Eligard) 22.5 MG (3 MONTH) SYRINGE Inj SC Every 3 months Comments: NOT TAKEN IN HOSPITAL Denosumab (Xgeva) 120 MG/1.7 ML (70 MG/ML) VIAL 1 Inj SC ONCE A MONTH Comments: NOT TAKEN IN HOSPITAL Rivaroxaban (Xarelto) 20 MG TABLET 1 Tablet ORAL DAILY Instructions: with food Comments: LAST TAKEN: 01/16/18 @ 9:30 AM Start taking the following new medications: Azithromycin (Zithromax) 500 MG TABLET 500 Milligram ORAL TWICE DAILY Qty = 4 No Refills Instructions: . Comments: NOT TAKEN IN HOSPITAL TODAY Oxycodone HCl/Acetaminophen (Percocet 5-325 MG Tablet) 5 MG-325 MG TABLET 1-2 Tablet ORAL THREE TIMES A DAY NEEDED Qty = 40 No Refills Comments: LAST TAKEN: 01/16/18 @ 9:30 AM Copies To: Christina ARGUETA,[facility]ell[facility] Attending Review Statement Documenting Attending: Zach Tracey MD Other Findings: Agree with the above summary of care and plan of care upon discharge. Will follow up with primary oncology Dr. Ponce in [place]- ? Palliative XRT to focal back pain? business services director consult at [facility] sources of assistance.
[2018-01-14 21:10] VITALS: BP 138/60
[2018-01-15 06:06] VITALS: BP 140/60
--- NOTE | 2018-01-15 06:31 | PN- Housestaff ---
Yrn Murillo 01/15/18 0630: Subjective Follow-up For: CAP FLAKO Subjective: Patient was seen and examied today. He is sitting in the chair and c/o SOB on lying supine and needs to sleep in chair that is giving him back pain. He says he cant go home until he gets a home designer to walk him around. No fever or cough or SOB otherwise Review of Systems Constitutional: Reports: see HPI. Objective Last 24 Hrs of Vital Signs/I&O Vital Signs Date Time Temp Pulse Resp B/P B/P Pulse O2 O2 Flow FiO2 Mean Ox Delivery Rate 01/16 0013 78 95 01/16 0000 96 CPAP 01/15 2214 98.7 86 20 126/64 96 Nasal Cannula 01/15 2137 82 98 01/15 1600 92 Nasal 2.0L Cannula 01/15 1427 98.9 84 20 130/67 94 Nasal Cannula 01/15 0838 140/60 01/15 0800 95 Nasal 2.0L Cannula Intake & Output 01/16 0800 01/16 0000 01/15 1600 Intake Total 510 240 500 Output Total 100 Balance 510 240 400 Intake, IV 270 Intake, Oral 240 240 500 Output, Urine 100 Physical Exam General Appearance: Alert, Oriented X3, Cooperative, No Acute Distress Cardiovascular: Regular Rate, No Murmurs Lungs: Clear to Auscultation, Normal Air Movement Abdomen: Normal Bowel Sounds, Soft, No Tenderness, No Hepatospenomegaly, No Masses Neurological: Normal Speech, Strength at 5/5 X4 Ext, Normal Tone, Sensation Intact Extremities: No Clubbing, No Cyanosis, No Edema, Normal Pulses, No Tenderness/ Swelling Current Medications: Current Medications Sig/Heath Start time Last Medication Dose Route Stop Time Status Admin Acetaminophen 650 MG Q6PRN PRN 01/12 06 AC 01/14 PO 0848 Alendronate Sodium 70 MG QWED 01/16 900 AC PO Amlodipine Besylate 5 MG DAILY 01/12 09 AC 01/15 PO 0838 Atorvastatin Calcium 5 MG 1700 01/12 1700 AC 01/14 PO 1611 Azithromycin 500 MG Q24H 01/13 0100 AC 01/15 Sodium Chloride 250 ML IV 0126 Bisacodyl 10 MG DAILY PRN 01/13 1445 AC 01/13 ME 1647 Calcium 600 MG 4 TIMES/DAY 01/13 1441 AC 01/15 PO 0838 Ceftriaxone Sodium 1,000 MG Q24H 01/12 1400 AC 01/14 IV 1321 Cyclobenzaprine HCl 5 MG BIDPRN PRN 01/14 1500 AC 01/15 PO 0837 Docusate Sodium 100 MG DAILY 01/12 1351 AC 01/15 PO 0838 Finasteride 5 MG DAILY 01/12 0900 AC 01/15 PO 0838 Influenza Virus 0 .STK-MED ONE 01/15 839 DC Vaccine IM Lidocaine 1 PAT DAILY 01/14 1450 AC 01/15 EXT 0839 Melatonin 5 MG AT BEDTIME PRN 01/14 211 AC 01/14 PO 2119 Melatonin 0 .STK-MED ONE 01/15 2112 DC PO Oxycodone/ 2 TAB Q6P PRN 01/15 900 AC Acetaminophen PO Oxycodone/ 1 TAB Q4P PRN 01/15 900 AC 01/15 Acetaminophen PO 904 Oxycodone/ 1 TAB ONCE ONE 01/15 0200 DC 01/15 Acetaminophen PO 01/15 0201 0227 Oxycodone/ 1 TAB ONCE ONE 01/14 2115 DC 01/14 Acetaminophen PO 01/14 211 211 Oxycodone/ 0 .STK-MED ONE 01/14 211 DC Acetaminophen PO Oxycodone/ 1 TAB ONCE ONE 01/14 1500 DC 01/14 Acetaminophen PO 01/14 1501 1502 Oxycodone/ 0 .STK-MED ONE 01/14 1500 DC Acetaminophen PO Polyethylene Glycol 17 GM DAILY 01/12 1351 AC 01/15 PO 0839 Rivaroxaban 20 MG DAILY 01/12 09 AC 01/15 PO 0838 Senna/Docusate Sodium 2 TAB DAILY PRN 01/12 1400 AC 01/15 PO 0837 Assessment/Plan Assessment: 72 y/o morbidly obese M with a PMH h/o HTN, TROY on CPAP and 2 L of Oxygen at home (as needed), recurrent metastatic prostate cancer s/p chemotherapy, currently in an experimental chemo trial, HFpEF and PE on Xarelto(started november 2017) presents with shortness of breath and body aches. CXR on admission showed increased interstitial prominence throughout both lungs as well as more opacification within the medial right lung base. He was admitted to general medicine for further management of: PROBLEM LIST: 1. CAP, on azithro, ceftriaxone (Day #3) 2. FLAKO, resolving 3. COPD on 2L baseline 4. HF w. presereved EF 5. Stage IV metastatic prostate CA 6. Chronic medical conditions: HTN, HLD 7. History of PE 8. History of back pain. - Continue his ANtibitoics azithro and cef. -Cultures no growth yet - Urinary antigens for Legionella and Strep pneumo are negative. - PT evaluated the patient yesterday and he demonstrated safe mobility, they did not recommened continued skilled physical therapy at this point. - back pain- will increase the dose of percocet and try - ask thhe patient to f/u with Dr Parkinson, radiation oncologist for back pain. Problem List: 1. Adenocarcinoma of prostate, stage 4 2. Pneumonia Pain Ratin Pain Location: back Pain Goal: Remain pain free Pain Plan: percocet Tomorrow's Labs & Rationales: none Zach Tracey MD 01/15/18 2100: Attending MD Review Statement Attending Statement Attending MD Statement: examined this patient, discuss w/resident/PA/DRAPERY MAKER, agreed w/resident/PA/DRAPERY MAKER, reviewed EMR data (avail), discussed with nursing, discussed with case mgmt, reviewed images, amended to note Attending Assessment/Plan: The patient was seen and discussed with house staff, nursing, and case management. Still with significant back pain and is uncomfortable sleeping in recliner chair at night. States bed is even less comfortable. Does have known spinal bone metastases which are probably source of pain. Advised patient that we will attempt better pain control and increase Percocet. Would benefit from oncology follow-up as OP and consider for some palliative radiation to back if appropriate (he has had gamma knife and is on an experimental protocol at [place]). Case management evaluating possibilities for home care services.
[2018-01-15 14:27] VITALS: BP 130/67
[2018-01-15 22:14] VITALS: BP 126/64
[2018-01-16 06:38] VITALS: BP 128/66
--- NOTE | 2018-01-16 07:15 | PN- Housestaff ---
Yrn Murillo Marciecirilogarcía 01/16/18 0714: Subjective Follow-up For: Pneumonia and FLAKO Subjective: Patient was examined today an d he was doing well,. HE although continues to have pain 11/13 in back and would lik eto go home Review of Systems Constitutional: Reports: no symptoms. Objective Last 24 Hrs of Vital Signs/I&O Vital Signs Date Time Temp Pulse Resp B/P B/P Pulse O2 O2 Flow FiO2 Mean Ox Delivery Rate 01/16 0930 78 128/66 01/16 0800 98 Nasal 2.0L Cannula 01/16 0638 98.5 78 20 128/66 94 01/16 0013 78 95 / 0000 96 CPAP 01/15 2214 98.7 86 20 126/64 96 Nasal Cannula Intake & Output 01/16 1600 01/16 0800 01/16 0000 Intake Total 570 240 Output Total Balance 570 240 Intake, IV 270 Intake, Oral 300 240 Physical Exam General Appearance: Alert, Oriented X3, Cooperative, No Acute Distress Cardiovascular: Regular Rate, No Murmurs Lungs: Clear to Auscultation, Normal Air Movement Abdomen: Normal Bowel Sounds, Soft, No Tenderness, No Hepatospenomegaly, No Masses Neurological: Normal Speech, Strength at 5/5 X4 Ext, Normal Tone, Sensation Intact Extremities: No Clubbing, No Cyanosis, No Edema, Normal Pulses, No Tenderness/ Swelling Current Medications: Current Medications Sig/Heath Start time Last Medication Dose Route Stop Time Status Admin Acetaminophen 650 MG Q6PRN PRN 01/12 0600 DCD 01/14 PO 0848 Alendronate Sodium 70 MG QWED 01/16 0900 DCD 01/16 PO 1056 Amlodipine Besylate 5 MG DAILY 01/12 0900 DCD 01/16 PO 0930 Atorvastatin Calcium 5 MG 1700 01/12 1700 DCD 01/15 PO 1811 Azithromycin 500 MG Q24H 01/13 0100 DCD 01/16 Sodium Chloride 250 ML IV 0010 Bisacodyl 5 MG ONE PRN 01/16 1000 DCD PO Bisacodyl 10 MG DAILY PRN 01/13 1445 DCD 01/15 CO 1818 Calcium 600 MG 4 TIMES/DAY 01/13 1441 DCD 01/16 PO 0930 Ceftriaxone Sodium 1,000 MG Q24H 01/12 1400 DCD 01/15 IV 1413 Cyclobenzaprine HCl 5 MG BIDPRN PRN 01/14 1500 DCD 01/16 PO 0010 Docusate Sodium 100 MG DAILY 01/12 1351 DCD 01/16 PO 0931 Finasteride 5 MG DAILY 01/12 0900 DCD 01/16 PO 0930 Lidocaine 1 PAT DAILY 01/14 1450 DCD 01/16 EXT 0932 Melatonin 5 MG AT BEDTIME PRN 01/14 2115 DCD 01/14 PO 2119 Oxycodone/ 2 TAB Q6P PRN 01/15 09 DCD 01/16 Acetaminophen PO 0930 Oxycodone/ 1 TAB Q4P PRN 01/15 0900 DCD 01/15 Acetaminophen PO 0905 Patient Medication 1 ED ONE ONE 01/16 1130 DC Teaching ED 01/16 1131 Polyethylene Glycol 17 GM DAILY 01/12 1351 DCD 01/16 PO 0930 Rivaroxaban 20 MG DAILY 01/12 0900 DCD 01/16 PO 0930 Senna/Docusate Sodium 2 TAB DAILY PRN 01/12 1400 DCD 01/16 PO 0940 Assessment/Plan Assessment: 72 y/o morbidly obese M with a PMH h/o HTN, TROY on CPAP and 2 L of Oxygen at home (as needed), recurrent metastatic prostate cancer s/p chemotherapy, currently in an experimental chemo trial, HFpEF and PE on Xarelto(started november 2017) presents with shortness of breath and body aches. CXR on admission showed increased interstitial prominence throughout both lungs as well as more opacification within the medial right lung base. He was admitted to general medicine for further management of: PROBLEM LIST: 1. CAP, on azithro, ceftriaxone (Day #3) 2. FLAKO, resolving 3. COPD on 2L baseline 4. HF w. presereved EF 5. Stage IV metastatic prostate CA 6. Chronic medical conditions: HTN, HLD 7. History of PE 8. History of back pain. - Continue his ANtibitoics azithro and cef. and discharge of PO abx -Cultures no growth yet - Urinary antigens for Legionella and Strep pneumo are negative. - PT evaluated the patient yesterday and he demonstrated safe mobility, they did not recommened continued skilled physical therapy at this point. - back pain- will increase the dose of percocet and discharge of 10 days percocet - ask thhe patient to f/u with Dr Parkinson, radiation oncologist for back pain. Problem List: 1. Pneumonia 2. Acute renal failure Pain Ratin Pain Location: back Pain Goal: Pain 4 or less Pain Plan: percocet Tomorrow's Labs & Rationales: none Zach Tracey MD 01/16/182023: Attending MD Review Statement Attending Statement Attending MD Statement: examined this patient, discuss w/resident/PA/RESIDENT SERVICE COORDINATOR, agreed w/resident/PA/RESIDENT SERVICE COORDINATOR, reviewed EMR data (avail), discussed with nursing, discussed with case mgmt, amended to note Attending Assessment/Plan: The patient was seen and discussed with house staff, nursing, and case management. Clinically doing well, however persistent back pain noted which is most likely secondary to skeletal metastases. Best option would be to follow-up with Oncology/Radiation Oncology at [facility] in [place]. May be a candidate for palliative XRT to painful bone metastases.
[2018-01-16 09:30] VITALS: BP 128/66
[2018-01-16] MEDS ORDERED: ZITHROMAX500 M2 PO ×2 (11:13→11:43)
[2018-01-16] MEDS ORDERED: PERCOCET 5-3251 EACH PO (11:15)
[2018-01-16] MEDS ORDERED: XARELTO15 M1 PO (11:18)
[2018-01-18] MEDS ORDERED: LACTULOSE20 GM/30 M PO (02:17)
[2018-01-18] MEDS ORDERED: SENNA8.6 M3 PO (02:17)
[2018-01-18] MEDS ORDERED: MIRALAX17 G1 PO (02:18)
[2018-01-18] MEDS ORDERED: OXYCODONE HCL5 M1 PO (02:22)
== END 2018-01-16 12:50 | disposition home health service (06) | DRG 194 ==
LOC: ERH 00:06 → 2NA 03:11 → ERHI 03:11 → ENRESERV 05:09 → 2NA 05:54 → ENTRNSPT 01-16 12:27 → 2NA 01-16 12:50 → EDTRNSPT 01-16 12:51 → EDTRNSPTSTS 01-16 12:51 → CMPTRNSPT 01-16 13:15
PROVIDERS: Internal Medicine; Pediatrics; Physical Medicine & Rehabilitation Pain Medicine
PROC: 5A09457 Assistance with Respiratory Ventilation, 24-96 Consecutive Hours, Continuous Positive Airway Pressure (ICD-10-PCS; principal; 2018-01-12)
DX: J18.9 Pneumonia, unspecified organism (principal); N17.9 Acute kidney failure, unspecified; C79.51 Secondary malignant neoplasm of bone; J96.11 Chronic respiratory failure with hypoxia; I50.32 Chronic diastolic (congestive) heart failure; C61 Malignant neoplasm of prostate; Z86.711 Personal history of pulmonary embolism; Z79.01 Long term (current) use of anticoagulants; E78.5 Hyperlipidemia, unspecified; G47.33 Obstructive sleep apnea (adult) (pediatric); Z68.36 Body mass index [BMI] 36.0-36.9, adult; M85.80 Other specified disorders of bone density and structure, unspecified site; F41.9 Anxiety disorder, unspecified; Z99.81 Dependence on supplemental oxygen; J44.9 Chronic obstructive pulmonary disease, unspecified; T45.1X5A Adverse effect of antineoplastic and immunosuppressive drugs, initial encounter; K59.00 Constipation, unspecified; E66.01 Morbid (severe) obesity due to excess calories; I11.0 Hypertensive heart disease with heart failure; Z92.21 Personal history of antineoplastic chemotherapy; M54.9 Dorsalgia, unspecified; G89.3 Neoplasm related pain (acute) (chronic)
CPT/HCPCS: 2NAP; 36415; 71045; 82436; 87040; 87070; 87449; 87450; 93005; 93010; 96365; 96375; 97116-GO; 97161-GP; 99291; J0131; J0456; J0696; J2930; J3490; J7040; Q2036